=== PATIENT | female | born 1955 | race Caucasian/White ===

== ENCOUNTER 2021-01-09 12:07 | Emergency (ER) | payer MEDICARE, OTHER ==
--- NOTE | 2021-01-09 13:24 | CR ---
Right knee: AP, lateral and sunrise patellar views were obtained of the right knee. Comparison: No previous study. Moderate narrowing is seen of the medial and lateral joint compartments. Osteophytes are seen most prominent laterally. Moderate narrowing is also noted within the patellofemoral joint with osteophytes. Osteopenia appears to be present. Nothing acute is seen. No joint effusion is seen. Impression: 1. Diffuse degenerative change as described above. Diagnostic code #3
--- NOTE | 2021-01-09 13:49 | EDM.PDOC ---
ED HPI GENERAL MEDICAL PROBLEM - General Chief Complaint: Lower Extremity Injury/Pain Stated Complaint: RIGHT KNEE PAIN Time Seen by Provider: 01/09/21 12:09 Source of Information: Reports: Patient, RN Notes Reviewed History Limitations: Reports: No Limitations - History of Present Illness INITIAL COMMENTS - FREE TEXT/NARRATIVE: Patient is a 65-year-old female presenting to the emergency department with complaints of right knee pain. Reports that about 1 week ago, she fell and landed on her extended leg. Since that time she is been having pain to her right knee. She reports a history of bilateral knee arthritis and states that she has been told that she needs bilateral knee replacements. She is new to the area but is in the process of establishing with orthopedist, Dr. Aviles. She has been able to walk on the extremity, however it is uncomfortable. right knee Pain Score (Numeric/FACES): 6 - Related Data Allergies Allergy/AdvReac Type Severity Reaction Status Date / Time NSAIDS (Non-Steroidal Allergy Other Verified 01/09/21 12:20 Anti-Inflamma phenytoin [From Dilantin] Allergy Cannot Verified 01/09/21 12:20 Remember Sulfa (Sulfonamide Allergy Anaphylactic Verified 01/09/21 12:20 Antibiotics) Shock Past Medical History Musculoskeletal History: Reports: Arthritis - Past Surgical History Musculoskeletal Surgical History: Reports: Shoulder Replacement Social & Family History - Tobacco Use Tobacco Use Status *Q: Never Tobacco User - Recreational Drug Use Recreational Drug Use: No Review of Systems - Review of Systems Review Of Systems: Comprehensive ROS is negative, except as noted in HPI. ED EXAM, GENERAL - Physical Exam Exam: See Below Exam Limited By: No Limitations General Appearance: Alert, WD/WN, No Apparent Distress Respiratory/Chest: No Respiratory Distress, Lungs Clear, Normal Breath Sounds, No Accessory Muscle Use, Chest Non-Tender Cardiovascular: Normal Peripheral Pulses, Regular Rate, Rhythm, No Edema, No Gallop, No JVD, No Murmur, No Rub Extremities: Other (Faint ecchymosis to the anterior aspect of the right knee. No obvious deformity. Area is tender to palpation.) Neurological: Alert, Oriented, CN II-XII Intact, Normal Cognition, Normal Reflexes, No Motor/Sensory Deficits Psychiatric: Normal Affect, Normal Mood Skin Exam: Warm, Dry, Intact, Normal Color, No Rash Course - Vital Signs Last Recorded V/S: Last Vital Signs Temp 98.1 F 01/09/21 12:16 Pulse 88 01/09/21 12:16 Resp 18 01/09/21 12:16 BP 169/83 H 01/09/21 12:16 Pulse Ox 95 01/09/21 12:16 - Re-Assessments/Exams Free Text/Narrative Re-Assessment/Exam: Patient is a 65-year-old female presenting to the emergency department with complaints of right knee pain after fall 1 week ago. Reports a history of degenerative joints in her bilateral knees. States she has been told she needs bilateral knee replacement. She is new to the area so she has not seen orthopedics in the area, she is in the process of establishing with Dr. Aviles. She has been able to walk on the extremity, however it is uncomfortable. I ordered x-rays of the right knee. 01/09/21 13:47 X-ray of the right knee show degenerative changes but no acute abnormalities. Results discussed with patient. She will be provided a knee immobilizer to stabilize the joint. I will write for Tylenol with codeine for pain. Recommend follow-up with orthopedics as soon as possible. Discharge instructions as documented. Departure - Departure Time of Disposition: 13:49 Disposition: Home, Self-Care 01 Condition: Good Clinical Impression: Knee pain, right Qualifiers: Chronicity: acute Qualified Code(s): M25.561 - Pain in right knee - Discharge Information *PRESCRIPTION DRUG MONITORING PROGRAM REVIEWED*: No *COPY OF PRESCRIPTION DRUG MONITORING REPORT IN PATIENT DIONICIO: No Instructions: Acute Knee Pain, Adult Referrals: PCP,None [Primary Care Provider] - Additional Instructions: You were seen in the emergency department today for right-sided knee pain after falling 1 week ago. X-rays were completed and show no evidence of fracture. You likely have increased inflammation in addition to your chronic arthritis. You have been provided a knee immobilizer. Wear this as needed to stabilize the joint. Prescription has been provided for Tylenol with codeine. Uses only as prescribed. Do not work or drive for 12 hours after taking them as it can be sedating. Ensure that you are not taking more than 4000 mg of Tylenol from all sources in a 24-hour period. Recommend contacting orthopedics and let them know about your injury. Follow-up with them as soon as possible. Return to ER as needed. Sepsis Event Note (ED) - Evaluation Sepsis Screening Result: No Definite Risk - Focused Exam Vital Signs: Vital Signs Temp Pulse Resp BP Pulse Ox 01/09/21 12:16 98.1 F 88 18 169/83 H 95
== END 2021-01-09 14:15 | disposition home or self-care (01) ==
LOC: JD.ED 12:07
DX: M25.561 Pain in right knee (principal); M19.90 Unspecified osteoarthritis, unspecified site; Z88.6 Allergy status to analgesic agent; Z88.8 Allergy status to other drugs, medicaments and biological substances; Z88.2 Allergy status to sulfonamides
CPT/HCPCS: 73562-26-RT; 73562-RT; 99283; 99283-25

== ENCOUNTER 2021-01-21 10:10 | Inpatient (IN) | payer MEDICARE ==
--- NOTE | 2021-01-21 10:35 | EDM.PDOC ---
ED HPI GENERAL MEDICAL PROBLEM - General Chief Complaint: ENT Problem Stated Complaint: DENTAL PAIN AND TOOK TO MUCH TYLENOL Time Seen by Provider: 01/21/21 10:34 - History of Present Illness INITIAL COMMENTS - FREE TEXT/NARRATIVE: 65-year-old female presents the emergency room with a toothache and complains that she took too much Tylenol. Patient has worsening toothache left upper canine. The patient also complains she has been taking too much Tylenol she gives a history of taking 2 g of Tylenol every 5 hours for the last at least 2 days. The patient has a speech impediment and she says this always happens when her electrolytes are out of order. The speech impediment has been present for at least the last 2 days. She has had several hospitalizations for her electrolytes needing correction including magnesium. She denies fevers or chills she denies any extremity weakness or numbness. Patient denies any intent trying to hurt her self she took her last dose of Tylenol around 1 AM to 2 AM this morning. Right Tooth/Teeth Pain Score (Numeric/FACES): 9 - Related Data Allergies Allergy/AdvReac Type Severity Reaction Status Date / Time NSAIDS (Non-Steroidal Allergy Other Verified 01/21/21 10:41 Anti-Inflamma phenytoin [From Dilantin] Allergy Cannot Verified 01/21/21 10:41 Remember Sulfa (Sulfonamide Allergy Anaphylactic Verified 01/21/21 10:41 Antibiotics) Shock Past Medical History Musculoskeletal History: Reports: Arthritis - Past Surgical History Musculoskeletal Surgical History: Reports: Shoulder Replacement ED ROS GENERAL - Review of Systems Review Of Systems: See Below Constitutional: Reports: No Symptoms, Fever. Denies: Chills HEENT: Reports: Dental Pain Respiratory: Reports: No Symptoms Cardiovascular: Reports: No Symptoms Endocrine: Reports: No Symptoms GI/Abdominal: Reports: No Symptoms : Reports: No Symptoms Musculoskeletal: Reports: No Symptoms Skin: Reports: No Symptoms Neurological: Reports: Trouble Speaking, Change in Speech. Denies: Dizziness, Headache, Difficulty Walking, Gait Disturbance ED EXAM, GENERAL - Physical Exam Exam: See Below Exam Limited By: No Limitations General Appearance: Alert, No Apparent Distress, Obese Ears: Normal External Exam, Normal Canal, Hearing Grossly Normal, Normal TMs Nose: Normal Inspection, Normal Mucosa, No Blood Throat/Mouth: Normal Inspection, Normal Lips, Normal Gums, Normal Oropharynx, Normal Voice, No Airway Compromise, Other (She has a left upper canine that is eroded to the gumline she has swelling of the gum.). No: Normal Teeth Head: Atraumatic, Normocephalic Neck: Normal Inspection, Supple, Non-Tender. No: Lymphadenopathy (L), Lymphadenopathy (R) Respiratory/Chest: No Respiratory Distress, Lungs Clear, Normal Breath Sounds Cardiovascular: Regular Rate, Rhythm, No Edema, No Murmur GI/Abdominal: Normal Bowel Sounds, Soft, Non-Tender, Other (Morbid obesity) Back Exam: Normal Inspection. No: CVA Tenderness (L), CVA Tenderness (R) #1 Interpretation EKG Date: 01/21/21 Rhythm: NSR [place]: Normal P-Wave: Present QRS: Normal ST-T: Normal QT: Normal Comparison: NA - No Prior EKG EKG Interpretation Comments: Normal EKG Course - Vital Signs Last Recorded V/S: Last Vital Signs Temp 36.1 C 01/21/21 10:38 Pulse 90 01/21/21 13:42 Resp 16 01/21/21 13:42 BP 172/75 H 01/21/21 13:42 Pulse Ox 98 01/21/21 13:42 - Orders/Labs/Meds Orders: Active Orders 24 hr Category Date Time Status Admission Status [Patient Status] [ADT] Routine ADT 01/21/21 14:43 Active Cardiac Monitoring [RC] CONTINUOUS Care 01/21/21 14:45 Active EKG Documentation Completion [RC] STAT Care 01/21/21 10:45 Active Height and Weight [RC] DAILY Care 01/21/21 14:43 Active Intake and Output [RC] QSHIFT Care 01/21/21 14:44 Active Oxygen Therapy [RC] PRN Care 01/21/21 14:44 Active Up With Assistance [RC] ASDIRECTED Care 01/21/21 14:43 Active VTE/DVT Education [RC] PER UNIT ROUTINE Care 01/21/21 14:44 Active Vital Signs [RC] Q4H Care 01/21/21 14:44 Active Consult to Case Management/Trailer [employer] [CONS] Cons 01/21/21 14:43 Active Routine Regular Diet [DIET] Diet 01/21/21 Dinner Active Abdomen Comp [US] Routine Exams 01/21/21 15:01 Ordered ACETAMINOPHEN [CHEM] Routine Lab 01/21/21 16:00 Ordered ACETAMINOPHEN [CHEM] Routine Lab 01/21/21 21:00 Ordered ACETAMINOPHEN [CHEM] Routine Lab 01/22/21 06:00 Ordered BASIC METABOLIC PANEL,BMP [CHEM] DAILY Lab 01/22/21 06:00 Ordered BASIC METABOLIC PANEL,BMP [CHEM] DAILY Lab 01/23/21 06:00 Ordered BASIC METABOLIC PANEL,BMP [CHEM] DAILY Lab 01/24/21 06:00 Ordered BASIC METABOLIC PANEL,BMP [CHEM] DAILY Lab 01/25/21 06:00 Ordered BASIC METABOLIC PANEL,BMP [CHEM] DAILY Lab 01/26/21 06:00 Ordered CBC WITH AUTO DIFF [HEME] DAILY Lab 01/22/21 06:00 Ordered CBC WITH AUTO DIFF [HEME] DAILY Lab 01/23/21 06:00 Ordered CBC WITH AUTO DIFF [HEME] DAILY Lab 01/24/21 06:00 Ordered CBC WITH AUTO DIFF [HEME] DAILY Lab 01/25/21 06:00 Ordered CBC WITH AUTO DIFF [HEME] DAILY Lab 01/26/21 06:00 Ordered HEPATIC FUNCTION PANEL,HFP [CHEM] DAILY Lab 01/22/21 06:00 Ordered HEPATIC FUNCTION PANEL,HFP [CHEM] DAILY Lab 01/23/21 06:00 Ordered HEPATIC FUNCTION PANEL,HFP [CHEM] DAILY Lab 01/24/21 06:00 Ordered HEPATIC FUNCTION PANEL,HFP [CHEM] DAILY Lab 01/25/21 06:00 Ordered HEPATIC FUNCTION PANEL,HFP [CHEM] DAILY Lab 01/26/21 06:00 Ordered HEPATIC FUNCTION PANEL,HFP [CHEM] Routine Lab 01/21/21 16:00 Ordered HEPATIC FUNCTION PANEL,HFP [CHEM] Routine Lab 01/21/21 21:00 Ordered INR,PT,PROTHROMBIN TIME [COAG] DAILY Lab 01/22/21 06:00 Ordered INR,PT,PROTHROMBIN TIME [COAG] DAILY Lab 01/23/21 06:00 Ordered INR,PT,PROTHROMBIN TIME [COAG] DAILY Lab 01/24/21 06:00 Ordered INR,PT,PROTHROMBIN TIME [COAG] DAILY Lab 01/25/21 06:00 Ordered INR,PT,PROTHROMBIN TIME [COAG] DAILY Lab 01/26/21 06:00 Ordered Acetylcysteine [Acetadote 20%] 4,900 mg Med 01/21/21 14:00 Active Dextrose 5% in Water 500 ml IV ONETIME Acetylcysteine [Acetadote 20%] 9,800 mg Med 01/21/21 18:00 Active Dextrose 5% in Water 1,000 ml IV ONETIME Ampicillin/Sulbactam Na [Unasyn] 3 gm Med 01/21/21 15:00 Active Sodium Chloride 0.9% [Normal Saline] 100 ml IV Q6H Heparin Sodium Med 01/21/21 14:45 Active 5,000 units SUBCUT Q8H oxyCODONE Med 01/21/21 14:43 Active 5 mg PO Q4H PRN Medication Orders Heparin Sodium (Porcine) (Heparin Sodium 5,000 Units/Ml Vial) 5,000 units SUBCUT Q8H TATA Last Admin: 01/21/21 15:09 Dose: 5,000 units Documented by: AYDEN Acetylcysteine 4,900 mg/ (Dextrose/Water) 524.5 mls @ 131.125 mls/hr IV ONETIME ONE Stop: 01/21/21 17:59 Last Admin: 01/21/21 14:28 Dose: 131.125 mls/hr Documented by: AYDEN Acetylcysteine 9,800 mg/ (Dextrose/Water) 1,049 mls @ 65.563 mls/hr IV ONETIME ONE Stop: 01/22/21 09:59 Ampicillin Sodium/Sulbactam (Sodium 3 gm/ Sodium Chloride) 100 mls @ 200 mls/hr IV Q6H TATA Oxycodone HCl (Oxycodone 5 Mg Tab) 5 mg PO Q4H PRN PRN Reason: Pain (moderate 4-6) Last Admin: 01/21/21 15:10 Dose: 5 mg Documented by: AYDEN Labs: Laboratory Tests 01/21/21 01/21/21 01/21/21 Range/Units 10:45 10:45 10:55 WBC 4.54 (3.98-10.04) K/mm3 RBC 4.52 (3.98-5.22) M/mm3 Hgb 13.6 (11.2-15.7) gm/dl Hct 43.4 (34.1-44.9) % MCV 96.0 H (79.4-94.8) fl MCH 30.1 (25.6-32.2) pg MCHC 31.3 L (32.2-35.5) g/dl RDW Std Deviation 54.4 H (36.4-46.3) fL Plt Count 154 L (182-369) K/mm3 MPV 9.5 (9.4-12.3) fl Neut % (Auto) 91.5 H (34.0-71.1) % Lymph % (Auto) 5.7 L (19.3-51.7) % [place] % (Auto) 1.3 L (4.7-12.5) % Eos % (Auto) 0.9 (0.7-5.8) Baso % (Auto) 0.4 (0.1-1.2) % Neut # (Auto) 4.15 (1.56-6.13) K/mm3 Lymph # (Auto) 0.26 L (1.18-3.74) K/mm3 [place] # (Auto) 0.06 L (0.24-0.36) K/mm3 Eos # (Auto) 0.04 (0.04-0.36) K/mm3 Baso # (Auto) 0.02 (0.01-0.08) K/mm3 Manual Slide Review Abnormal smear PT (9.7-12.0) SECONDS INR Sodium 136 (136-145) mEq/L Potassium 4.5 (3.5-5.1) mEq/L Chloride 102 (98-107) mEq/L Carbon Dioxide 19 L (21-32) mEq/L Anion Gap 19.5 H (5-15) BUN 18 (7-18) mg/dL Creatinine 0.8 (0.55-1.02) mg/dL Est Cr Clr Drug Dosing 49.01 mL/min Estimated GFR (MDRD) > 60 (>60) mL/min BUN/Creatinine Ratio 22.5 H (14-18) Glucose 131 H (70-99) mg/dL Calcium 8.7 (8.5-10.1) mg/dL Magnesium 1.8 (1.8-2.4) mg/dL Total Bilirubin 0.5 (0.2-1.0) mg/dL AST 714 H (15-37) U/L ALT 312 H (14-59) U/L Alkaline Phosphatase 44 L (46-116) U/L Troponin I < 0.017 (0.00-0.056) ng/mL Total Protein 7.2 (6.4-8.2) g/dl Albumin 3.8 (3.4-5.0) g/dl Globulin 3.4 gm/dL Albumin/Globulin Ratio 1.1 (1-2) Urine Color (Yellow) Urine Appearance (Clear) Urine pH (5.0-8.0) Ur Specific [place] (1.005-1.030) Urine Protein (Negative) Urine Glucose (UA) (Negative) Urine Ketones (Negative) Urine Occult Blood (Negative) Urine Nitrite (Negative) Urine Bilirubin (Negative) Urine Urobilinogen (0.2-1.0) Ur Leukocyte Esterase (Negative) U Hyaline Cast (Auto) (0-5) /lpf Urine RBC (0-5) /hpf Urine WBC (0-5) /hpf Ur Epithelial Cells (0-5) /hpf Urine Bacteria (FEW) /hpf Urine Mucus (FEW) /hpf Salicylates (2.8-20) mg/dL Urine Opiates Screen (ANGBPF=603) Ur Buprenorphine Scrn (CUTOFF=10) Ur Oxycodone Screen (XKU6WU=965) Urine Methadone Screen (OFASYU=296) Ur Propoxyphene Screen (UOHEOJ=262) Acetaminophen 7 L 7 L (10-30) ug/mL Ur Barbiturates Screen (LGKKKI=658) Ur Tricyclics Screen (KJCDIY=206) Ur Phencyclidine Scrn (CUTOFF=25) Ur Amphetamine Screen (ZGFVDT=323) U Methamphetamines Scrn (LWSXOQ=300) U Benzodiazepines Scrn (KOVBIX=304) U Cocaine Metab Screen (UOGNGE=578) U Marijuana (THC) Screen (CUTOFF=50) Ethyl Alcohol 0.00 (0.00) gm% SARS-CoV-2 RNA (LEMUEL) (NEGATIVE) 01/21/21 01/21/21 01/21/21 Range/Units 10:57 11:28 11:29 WBC (3.98-10.04) K/mm3 RBC (3.98-5.22) M/mm3 Hgb (11.2-15.7) gm/dl Hct (34.1-44.9) % MCV (79.4-94.8) fl MCH (25.6-32.2) pg MCHC (32.2-35.5) g/dl RDW Std Deviation (36.4-46.3) fL Plt Count (182-369) K/mm3 MPV (9.4-12.3) fl Neut % (Auto) (34.0-71.1) % Lymph % (Auto) (19.3-51.7) % [place] % (Auto) (4.7-12.5) % Eos % (Auto) (0.7-5.8) Baso % (Auto) (0.1-1.2) % Neut # (Auto) (1.56-6.13) K/mm3 Lymph # (Auto) (1.18-3.74) K/mm3 [place] # (Auto) (0.24-0.36) K/mm3 Eos # (Auto) (0.04-0.36) K/mm3 Baso # (Auto) (0.01-0.08) K/mm3 Manual Slide Review PT 11.9 (9.7-12.0) SECONDS INR 1.11 Sodium (136-145) mEq/L Potassium (3.5-5.1) mEq/L Chloride (98-107) mEq/L Carbon Dioxide (21-32) mEq/L Anion Gap (5-15) BUN (7-18) mg/dL Creatinine (0.55-1.02) mg/dL Est Cr Clr Drug Dosing mL/min Estimated GFR (MDRD) (>60) mL/min BUN/Creatinine Ratio (14-18) Glucose (70-99) mg/dL Calcium (8.5-10.1) mg/dL Magnesium (1.8-2.4) mg/dL Total Bilirubin (0.2-1.0) mg/dL AST (15-37) U/L ALT (14-59) U/L Alkaline Phosphatase (46-116) U/L Troponin I (0.00-0.056) ng/mL Total Protein (6.4-8.2) g/dl Albumin (3.4-5.0) g/dl Globulin gm/dL Albumin/Globulin Ratio (1-2) Urine Color (Yellow) Urine Appearance (Clear) Urine pH (5.0-8.0) Ur Specific [place] (1.005-1.030) Urine Protein (Negative) Urine Glucose (UA) (Negative) Urine Ketones (Negative) Urine Occult Blood (Negative) Urine Nitrite (Negative) Urine Bilirubin (Negative) Urine Urobilinogen (0.2-1.0) Ur Leukocyte Esterase (Negative) U Hyaline Cast (Auto) (0-5) /lpf Urine RBC (0-5) /hpf Urine WBC (0-5) /hpf Ur Epithelial Cells (0-5) /hpf Urine Bacteria (FEW) /hpf Urine Mucus (FEW) /hpf Salicylates 0.9 L (2.8-20) mg/dL Urine Opiates Screen (FFOLKY=883) Ur Buprenorphine Scrn (CUTOFF=10) Ur Oxycodone Screen (LUR4CN=824) Urine Methadone Screen (ORCZXX=452) Ur Propoxyphene Screen (VYXTWC=418) Acetaminophen (10-30) ug/mL Ur Barbiturates Screen (OTRZRQ=754) Ur Tricyclics Screen (NZGPZO=931) Ur Phencyclidine Scrn (CUTOFF=25) Ur Amphetamine Screen (FLQXBH=311) U Methamphetamines Scrn (CNSABM=175) U Benzodiazepines Scrn (HTUXMG=468) U Cocaine Metab Screen (JUFPKN=624) U Marijuana (THC) Screen (CUTOFF=50) Ethyl Alcohol (0.00) gm% SARS-CoV-2 RNA (LEMUEL) Negative (NEGATIVE) 01/21/21 01/21/21 Range/Units 13:00 13:00 WBC (3.98-10.04) K/mm3 RBC (3.98-5.22) M/mm3 Hgb (11.2-15.7) gm/dl Hct (34.1-44.9) % MCV (79.4-94.8) fl MCH (25.6-32.2) pg MCHC (32.2-35.5) g/dl RDW Std Deviation (36.4-46.3) fL Plt Count (182-369) K/mm3 MPV (9.4-12.3) fl Neut % (Auto) (34.0-71.1) % Lymph % (Auto) (19.3-51.7) % [place] % (Auto) (4.7-12.5) % Eos % (Auto) (0.7-5.8) Baso % (Auto) (0.1-1.2) % Neut # (Auto) (1.56-6.13) K/mm3 Lymph # (Auto) (1.18-3.74) K/mm3 [place] # (Auto) (0.24-0.36) K/mm3 Eos # (Auto) (0.04-0.36) K/mm3 Baso # (Auto) (0.01-0.08) K/mm3 Manual Slide Review PT (9.7-12.0) SECONDS INR Sodium (136-145) mEq/L Potassium (3.5-5.1) mEq/L Chloride (98-107) mEq/L Carbon Dioxide (21-32) mEq/L Anion Gap (5-15) BUN (7-18) mg/dL Creatinine (0.55-1.02) mg/dL Est Cr Clr Drug Dosing mL/min Estimated GFR (MDRD) (>60) mL/min BUN/Creatinine Ratio (14-18) Glucose (70-99) mg/dL Calcium (8.5-10.1) mg/dL Magnesium (1.8-2.4) mg/dL Total Bilirubin (0.2-1.0) mg/dL AST (15-37) U/L ALT (14-59) U/L Alkaline Phosphatase (46-116) U/L Troponin I (0.00-0.056) ng/mL Total Protein (6.4-8.2) g/dl Albumin (3.4-5.0) g/dl Globulin gm/dL Albumin/Globulin Ratio (1-2) Urine Color Yellow (Yellow) Urine Appearance Clear (Clear) Urine pH 5.5 (5.0-8.0) Ur Specific [place] > or = 1.030 (1.005-1.030) Urine Protein 1+ H (Negative) Urine Glucose (UA) Negative (Negative) Urine Ketones 2+ H (Negative) Urine Occult Blood Negative (Negative) Urine Nitrite Negative (Negative) Urine Bilirubin 1+ H (Negative) Urine Urobilinogen 0.2 (0.2-1.0) Ur Leukocyte Esterase Negative (Negative) U Hyaline Cast (Auto) 0-5 (0-5) /lpf Urine RBC Not seen (0-5) /hpf Urine WBC 0-5 (0-5) /hpf Ur Epithelial Cells 0-5 (0-5) /hpf Urine Bacteria Moderate H (FEW) /hpf Urine Mucus Few (FEW) /hpf Salicylates (2.8-20) mg/dL Urine Opiates Screen Negative (QCSSHB=266) Ur Buprenorphine Scrn Negative (CUTOFF=10) Ur Oxycodone Screen Negative (XXN6AH=807) Urine Methadone Screen Negative (MNESWC=572) Ur Propoxyphene Screen Negative (LEJACN=006) Acetaminophen (10-30) ug/mL Ur Barbiturates Screen Negative (HQGPCI=865) Ur Tricyclics Screen Negative (XHLILR=552) Ur Phencyclidine Scrn Negative (CUTOFF=25) Ur Amphetamine Screen Negative (MXWFNH=671) U Methamphetamines Scrn Negative (YZHJMJ=125) U Benzodiazepines Scrn Negative (ONTNXF=682) U Cocaine Metab Screen Negative (TBHWFX=353) U Marijuana (THC) Screen Negative (CUTOFF=50) Ethyl Alcohol (0.00) gm% SARS-CoV-2 RNA (LEMUEL) (NEGATIVE) Meds: Medications Generic Name Dose Route Start Last Admin Trade Name Freq PRN Reason Stop Dose Admin Heparin Sodium (Porcine) 5,000 units 01/21/21 14:45 01/21/21 15:09 Heparin Sodium 5,000 Units/Ml Vial SUBCUT 5,000 units Q8H TATA Administration Acetylcysteine 4,900 mg/ 524.5 mls @ 131.125 mls/hr 01/21/21 14:00 01/21/21 14:28 Dextrose/Water IV 01/21/21 17:59 131.125 mls/hr ONETIME ONE Administration Acetylcysteine 9,800 mg/ 1,049 mls @ 65.563 mls/hr 01/21/21 18:00 Dextrose/Water IV 01/22/21 09:59 ONETIME ONE Ampicillin Sodium/Sulbactam 100 mls @ 200 mls/hr 01/21/21 15:00 Sodium 3 gm/ Sodium Chloride IV Q6H TATA Oxycodone HCl 5 mg 01/21/21 14:43 01/21/21 15:10 Oxycodone 5 Mg Tab PO 5 mg Q4H PRN Administration Pain (moderate 4-6) Discontinued Medications Generic Name Dose Route Start Last Admin Trade Name Freq PRN Reason Stop Dose Admin Fentanyl 50 mcg 01/21/21 13:14 01/21/21 13:25 Fentanyl 100 Mcg/2 Ml Sdv IVPUSH 01/21/21 13:15 50 mcg ONETIME ONE Administration Hydromorphone HCl 0.5 mg 01/21/21 14:24 01/21/21 14:28 Hydromorphone 0.5 Mg/0.5 Ml Syringe IVPUSH 01/21/21 14:25 0.5 mg ONETIME ONE Administration Acetylcysteine 14,600 mg/ 273 mls @ 273 mls/hr 01/21/21 13:00 01/21/21 13:25 Dextrose/Water IV 01/21/21 13:59 273 mls/hr ONETIME ONE Administration Ondansetron HCl 4 mg 01/21/21 13:21 01/21/21 13:24 Ondansetron 4 Mg/2 Ml Sdv IVPUSH 01/21/21 13:22 4 mg ONETIME ONE Administration - Re-Assessments/Exams Free Text/Narrative Re-Assessment/Exam: 01/21/21 12:56 Reviewed with poison control and has a suspected we will treat for Tylenol toxicity with her body habitus and when I have pharmacy calculate the dose. 01/21/21 13:[address] Badillo who will assume care. Departure - Departure Time of Disposition: 13:37 Disposition: Refer to Observation Clinical Impression: Tylenol toxicity - Discharge Information Referrals: PCP,None [Primary Care Provider] - Forms: ED Department Discharge Sepsis Event Note (ED) - Focused Exam Vital Signs: Vital Signs Temp Pulse Resp BP Pulse Ox 01/21/21 13:42 90 16 172/75 H 98 01/21/21 10:38 36.1 C 90 16 156/123 H 96 - My Orders Last 24 Hours: My Active Orders 01/21/21 10:45 EKG Documentation Completion [RC] STAT 01/21/21 14:00 Acetylcysteine [Acetadote 20%] 4,900 mg Dextrose 5% in Water 500 ml IV ONETIME 01/21/21 14:43 Admission Status [Patient Status] [ADT] Routine 01/21/21 18:00 Acetylcysteine [Acetadote 20%] 9,800 mg Dextrose 5% in Water 1,000 ml IV ONETIME - Assessment/Plan Last 24 Hours: My Active Orders 01/21/21 10:45 EKG Documentation Completion [RC] STAT 01/21/21 14:00 Acetylcysteine [Acetadote 20%] 4,900 mg Dextrose 5% in Water 500 ml IV ONETIME 01/21/21 14:43 Admission Status [Patient Status] [ADT] Routine 01/21/21 18:00 Acetylcysteine [Acetadote 20%] 9,800 mg Dextrose 5% in Water 1,000 ml IV ONETIME
[2021-01-21 11:32] LABS: ACETAMINOPHEN 7 ug/mL (10-30)
[2021-01-21] MEDS ORDERED: ACETYLCYSTEINE IV ONE ×6 (13:00→18:00)
[2021-01-21] MEDS ORDERED: DEXTROSE 5% IV ONE ×6 (13:00→18:00)
[2021-01-21] MEDS ORDERED: WATER IV ONE ×6 (13:00→18:00)
[2021-01-21] MEDS ORDERED: fentaNYL 100 MCG/2 ML SDV IVPUSH ONE (13:14)
[2021-01-21] MEDS ORDERED: Ondansetron 4 MG/2 ML SDV IVPUSH ONE (13:21)
--- NOTE | 2021-01-21 13:57 | CT ---
Head CT Technique: Multiple axial sections through the brain were obtained. Intravenous contrast was not utilized. Reconstructed coronal and sagittal images were obtained. Comparison: No previous intracranial imaging is available. Findings: Ventricles along with basal cisterns and sulci over the convexities are within normal limits for the patient's age. Minimal low density finding is seen within both posterior basal ganglia most likely representing prominent perivascular spaces. No abnormal parenchymal densities are seen. No evidence of intracranial hemorrhage is seen. No midline shift or mass-effect is seen. Bone window settings were reviewed. Mild hyperostosis frontalis is noted which is a normal variant. Moderate mucosal thickening is seen within the right side of the sphenoid sinus. Other visualized paranasal sinuses are clear. Visualized mastoid sinuses show nothing acute. No acute calvarial abnormality is appreciated. Impression: 1. Moderate mucosal thickening within the right side of the sphenoid sinus. No air-fluid levels are seen. 2. Nothing acute is otherwise seen on noncontrast head CT study. Diagnostic code #2 I agree with preliminary report from [facility], finalized on 01/21/21, 1:08 PM CDT, code 1
[2021-01-21] MEDS ORDERED: HYDROmorphone 0.5 MG/0.5 ML Syringe IVPUSH ONE (14:24)
[2021-01-21] MEDS ORDERED: Ampicillin/Sulbactam Na 3 GM in Sodium Chloride 0.9% 100 ML IV SCH (15:00)
[2021-01-21] MEDS: Heparin Sodium 5,000 Units/ML Vial SUBCUT SCH ×2 (15:09→23:14)
[2021-01-21] MEDS: oxyCODONE 5 MG Tab PO PRN ×3 (15:10→23:20)
--- NOTE | 2021-01-21 16:14 | US ---
Abdominal ultrasound: Multiple real-time images of the abdomen were obtained. Comparison: No prior abdominal imaging is available. Liver is echogenic as compared to the kidney which is most likely due to fatty infiltration. Liver is also somewhat enlarged. Abdominal aorta shows no aneurysm. Gallbladder contains no shadowing gallstones. No gallbladder wall thickening is seen. Small area of focal fatty sparing is seen next to the gallbladder. Common bile duct is not visualized but common hepatic duct is normal in size. Kidneys show no hydronephrosis or mass. Right kidney measures 11.2 cm in length and left kidney measures 10.9 cm in length. Spleen size is normal. Pancreas is not completely seen. Visualized portions of the pancreas are within normal limits. Inferior vena cava is patent. Main portal vein shows normal hepatopedal flow. Impression: 1. Fatty infiltration within the liver. Small amount of focal fatty sparing next to the gallbladder. 2. Nothing acute is otherwise seen on abdominal ultrasound exam. Diagnostic code #2
--- NOTE | 2021-01-21 16:22 | PCM.HP.2 ---
H&P History of Present Illness - General Date of Service: 01/21/21 Admit Problem/Dx: Admission Diagnosis/Problem Admission Diagnosis/Problem Acetaminophen overdose Source of Information: Patient - History of Present Illness Initial Comments - Free Text/Narative: This is a 65F with PMHx noted below including hx of arthritis presenting for evaluation of tooth pain. The patient is a poor historian. Hx limited by encephalopathy. The patient states she recently moved from [facility]. She has been having worsening tooth pain upper left molars. She has not been evaluated by dentist. For pain control she has been taking large doses of tylenol every few hours. She presented to ED where her tylenol levels where checked and noted to be 7. Given concern for acetaminophen toxicity she was started on mucomyst. Her AST and ALT 714, 314. INR WNL. she was started on unasyn and admitted for further evaluation. Right Tooth/Teeth Pain Score (Numeric/FACES): 9 - Related Data Allergies/Adverse Reactions: Allergies Allergy/AdvReac Type Severity Reaction Status Date / Time NSAIDS (Non-Steroidal Allergy Other Verified 01/21/21 10:41 Anti-Inflamma phenytoin [From Dilantin] Allergy Cannot Verified 01/21/21 10:41 Remember Sulfa (Sulfonamide Allergy Anaphylactic Verified 01/21/21 10:41 Antibiotics) Shock Home Medications: Home Meds Anastrozole [Arimidex] 1 mg PO DAILY 01/21/21 [History] Omeprazole 20 mg PO DAILY 01/21/21 [History] Rizatriptan Benzoate [Rizatriptan] 10 mg PO ASDIRECTED PRN 01/21/21 [History] Venlafaxine HCl [Venlafaxine ER] 220 mg PO DAILY 01/21/21 [History] carvediloL [Carvedilol] 25 mg PO BID 01/21/21 [History] Past Medical History Musculoskeletal History: Reports: Arthritis - Past Surgical History Musculoskeletal Surgical History: Reports: Shoulder Replacement Social & Family History - Tobacco Use Tobacco Use Status *Q: Never Tobacco User - Recreational Drug Use Recreational Drug Use: No H&P Review of Systems - Review of Systems: Review Of Systems: Unable To Obtain (due to encephalopathy) Reason Not Obtained: encephalopathy Exam - Exam Exam: See Below (s) - Vital Signs Vital Signs: Last Vital Signs Temp 97.0 F 01/21/21 10:38 Pulse 103 H 01/21/21 16:15 Resp 16 01/21/21 16:15 BP 153/74 H 01/21/21 16:15 Pulse Ox 95 01/21/21 16:15 Weight: 215 lb - Exam General: Alert, Cooperative, Other (disoriented ) HEENT: EOMI, Hearing Intact, Nares Patent Neck: Supple Lungs: Clear to Auscultation, Normal Respiratory Effort Cardiovascular: Regular Rate, Regular Rhythm GI/Abdominal Exam: Soft, Non-Tender, No Distention Extremities: Normal Inspection Neurological: Normal Speech Neuro Extensive - Mental Status: Other (Alert to place but not time) - Patient Data Lab Results Last 24 hrs: Laboratory Results - last 24 hr 01/21/21 01/21/21 01/21/21 Range/Units 10:45 10:45 10:55 WBC 4.54 (3.98-10.04) K/mm3 RBC 4.52 (3.98-5.22) M/mm3 Hgb 13.6 (11.2-15.7) gm/dl Hct 43.4 (34.1-44.9) % MCV 96.0 H (79.4-94.8) fl MCH 30.1 (25.6-32.2) pg MCHC 31.3 L (32.2-35.5) g/dl RDW Std Deviation 54.4 H (36.4-46.3) fL Plt Count 154 L (182-369) K/mm3 MPV 9.5 (9.4-12.3) fl Neut % (Auto) 91.5 H (34.0-71.1) % Lymph % (Auto) 5.7 L (19.3-51.7) % Weld % (Auto) 1.3 L (4.7-12.5) % Eos % (Auto) 0.9 (0.7-5.8) Baso % (Auto) 0.4 (0.1-1.2) % Neut # (Auto) 4.15 (1.56-6.13) K/mm3 Lymph # (Auto) 0.26 L (1.18-3.74) K/mm3 Weld # (Auto) 0.06 L (0.24-0.36) K/mm3 Eos # (Auto) 0.04 (0.04-0.36) K/mm3 Baso # (Auto) 0.02 (0.01-0.08) K/mm3 Manual Slide Review Abnormal smear PT (9.7-12.0) SECONDS INR Sodium 136 (136-145) mEq/L Potassium 4.5 (3.5-5.1) mEq/L Chloride 102 (98-107) mEq/L Carbon Dioxide 19 L (21-32) mEq/L Anion Gap 19.5 H (5-15) BUN 18 (7-18) mg/dL Creatinine 0.8 (0.55-1.02) mg/dL Est Cr Clr Drug Dosing 49.01 mL/min Estimated GFR (MDRD) > 60 (>60) mL/min BUN/Creatinine Ratio 22.5 H (14-18) Glucose 131 H (70-99) mg/dL Calcium 8.7 (8.5-10.1) mg/dL Magnesium 1.8 (1.8-2.4) mg/dL Total Bilirubin 0.5 (0.2-1.0) mg/dL AST 714 H (15-37) U/L ALT 312 H (14-59) U/L Alkaline Phosphatase 44 L (46-116) U/L Troponin I < 0.017 (0.00-0.056) ng/mL Total Protein 7.2 (6.4-8.2) g/dl Albumin 3.8 (3.4-5.0) g/dl Globulin 3.4 gm/dL Albumin/Globulin Ratio 1.1 (1-2) Urine Color (Yellow) Urine Appearance (Clear) Urine pH (5.0-8.0) Ur Specific [place] (1.005-1.030) Urine Protein (Negative) Urine Glucose (UA) (Negative) Urine Ketones (Negative) Urine Occult Blood (Negative) Urine Nitrite (Negative) Urine Bilirubin (Negative) Urine Urobilinogen (0.2-1.0) Ur Leukocyte Esterase (Negative) U Hyaline Cast (Auto) (0-5) /lpf Urine RBC (0-5) /hpf Urine WBC (0-5) /hpf Ur Epithelial Cells (0-5) /hpf Urine Bacteria (FEW) /hpf Urine Mucus (FEW) /hpf Salicylates (2.8-20) mg/dL Urine Opiates Screen (EGBFKR=732) Ur Buprenorphine Scrn (CUTOFF=10) Ur Oxycodone Screen (UNX5UZ=836) Urine Methadone Screen (NUQIKP=787) Ur Propoxyphene Screen (PMKJDC=855) Acetaminophen 7 L 7 L (10-30) ug/mL Ur Barbiturates Screen (KNJXQZ=876) Ur Tricyclics Screen (MSOCPU=758) Ur Phencyclidine Scrn (CUTOFF=25) Ur Amphetamine Screen (PDDMJI=136) U Methamphetamines Scrn (HQJHWE=804) U Benzodiazepines Scrn (KVDEDF=663) U Cocaine Metab Screen (ISKJQT=985) U Marijuana (THC) Screen (CUTOFF=50) Ethyl Alcohol 0.00 (0.00) gm% SARS-CoV-2 RNA (LEMUEL) (NEGATIVE) 01/21/21 01/21/21 01/21/21 Range/Units 10:57 11:28 11:29 WBC (3.98-10.04) K/mm3 RBC (3.98-5.22) M/mm3 Hgb (11.2-15.7) gm/dl Hct (34.1-44.9) % MCV (79.4-94.8) fl MCH (25.6-32.2) pg MCHC (32.2-35.5) g/dl RDW Std Deviation (36.4-46.3) fL Plt Count (182-369) K/mm3 MPV (9.4-12.3) fl Neut % (Auto) (34.0-71.1) % Lymph % (Auto) (19.3-51.7) % Weld % (Auto) (4.7-12.5) % Eos % (Auto) (0.7-5.8) Baso % (Auto) (0.1-1.2) % Neut # (Auto) (1.56-6.13) K/mm3 Lymph # (Auto) (1.18-3.74) K/mm3 Weld # (Auto) (0.24-0.36) K/mm3 Eos # (Auto) (0.04-0.36) K/mm3 Baso # (Auto) (0.01-0.08) K/mm3 Manual Slide Review PT 11.9 (9.7-12.0) SECONDS INR 1.11 Sodium (136-145) mEq/L Potassium (3.5-5.1) mEq/L Chloride (98-107) mEq/L Carbon Dioxide (21-32) mEq/L Anion Gap (5-15) BUN (7-18) mg/dL Creatinine (0.55-1.02) mg/dL Est Cr Clr Drug Dosing mL/min Estimated GFR (MDRD) (>60) mL/min BUN/Creatinine Ratio (14-18) Glucose (70-99) mg/dL Calcium (8.5-10.1) mg/dL Magnesium (1.8-2.4) mg/dL Total Bilirubin (0.2-1.0) mg/dL AST (15-37) U/L ALT (14-59) U/L Alkaline Phosphatase (46-116) U/L Troponin I (0.00-0.056) ng/mL Total Protein (6.4-8.2) g/dl Albumin (3.4-5.0) g/dl Globulin gm/dL Albumin/Globulin Ratio (1-2) Urine Color (Yellow) Urine Appearance (Clear) Urine pH (5.0-8.0) Ur Specific [place] (1.005-1.030) Urine Protein (Negative) Urine Glucose (UA) (Negative) Urine Ketones (Negative) Urine Occult Blood (Negative) Urine Nitrite (Negative) Urine Bilirubin (Negative) Urine Urobilinogen (0.2-1.0) Ur Leukocyte Esterase (Negative) U Hyaline Cast (Auto) (0-5) /lpf Urine RBC (0-5) /hpf Urine WBC (0-5) /hpf Ur Epithelial Cells (0-5) /hpf Urine Bacteria (FEW) /hpf Urine Mucus (FEW) /hpf Salicylates 0.9 L (2.8-20) mg/dL Urine Opiates Screen (IFREYE=753) Ur Buprenorphine Scrn (CUTOFF=10) Ur Oxycodone Screen (SJM3GG=790) Urine Methadone Screen (JCFCRR=929) Ur Propoxyphene Screen (TBJONQ=212) Acetaminophen (10-30) ug/mL Ur Barbiturates Screen (BDWLIU=505) Ur Tricyclics Screen (TYJWYK=355) Ur Phencyclidine Scrn (CUTOFF=25) Ur Amphetamine Screen (OJKFMW=409) U Methamphetamines Scrn (ZOFOPI=677) U Benzodiazepines Scrn (BAEKGB=373) U Cocaine Metab Screen (QVHHWF=885) U Marijuana (THC) Screen (CUTOFF=50) Ethyl Alcohol (0.00) gm% SARS-CoV-2 RNA (LEMUEL) Negative (NEGATIVE) 01/21/21 01/21/21 Range/Units 13:00 13:00 WBC (3.98-10.04) K/mm3 RBC (3.98-5.22) M/mm3 Hgb (11.2-15.7) gm/dl Hct (34.1-44.9) % MCV (79.4-94.8) fl MCH (25.6-32.2) pg MCHC (32.2-35.5) g/dl RDW Std Deviation (36.4-46.3) fL Plt Count (182-369) K/mm3 MPV (9.4-12.3) fl Neut % (Auto) (34.0-71.1) % Lymph % (Auto) (19.3-51.7) % Weld % (Auto) (4.7-12.5) % Eos % (Auto) (0.7-5.8) Baso % (Auto) (0.1-1.2) % Neut # (Auto) (1.56-6.13) K/mm3 Lymph # (Auto) (1.18-3.74) K/mm3 Weld # (Auto) (0.24-0.36) K/mm3 Eos # (Auto) (0.04-0.36) K/mm3 Baso # (Auto) (0.01-0.08) K/mm3 Manual Slide Review PT (9.7-12.0) SECONDS INR Sodium (136-145) mEq/L Potassium (3.5-5.1) mEq/L Chloride (98-107) mEq/L Carbon Dioxide (21-32) mEq/L Anion Gap (5-15) BUN (7-18) mg/dL Creatinine (0.55-1.02) mg/dL Est Cr Clr Drug Dosing mL/min Estimated GFR (MDRD) (>60) mL/min BUN/Creatinine Ratio (14-18) Glucose (70-99) mg/dL Calcium (8.5-10.1) mg/dL Magnesium (1.8-2.4) mg/dL Total Bilirubin (0.2-1.0) mg/dL AST (15-37) U/L ALT (14-59) U/L Alkaline Phosphatase (46-116) U/L Troponin I (0.00-0.056) ng/mL Total Protein (6.4-8.2) g/dl Albumin (3.4-5.0) g/dl Globulin gm/dL Albumin/Globulin Ratio (1-2) Urine Color Yellow (Yellow) Urine Appearance Clear (Clear) Urine pH 5.5 (5.0-8.0) Ur Specific [place] > or = 1.030 (1.005-1.030) Urine Protein 1+ H (Negative) Urine Glucose (UA) Negative (Negative) Urine Ketones 2+ H (Negative) Urine Occult Blood Negative (Negative) Urine Nitrite Negative (Negative) Urine Bilirubin 1+ H (Negative) Urine Urobilinogen 0.2 (0.2-1.0) Ur Leukocyte Esterase Negative (Negative) U Hyaline Cast (Auto) 0-5 (0-5) /lpf Urine RBC Not seen (0-5) /hpf Urine WBC 0-5 (0-5) /hpf Ur Epithelial Cells 0-5 (0-5) /hpf Urine Bacteria Moderate H (FEW) /hpf Urine Mucus Few (FEW) /hpf Salicylates (2.8-20) mg/dL Urine Opiates Screen Negative (CQKWCD=999) Ur Buprenorphine Scrn Negative (CUTOFF=10) Ur Oxycodone Screen Negative (PJK0EQ=527) Urine Methadone Screen Negative (EXARRU=266) Ur Propoxyphene Screen Negative (SBNJAF=745) Acetaminophen (10-30) ug/mL Ur Barbiturates Screen Negative (WOOLJO=181) Ur Tricyclics Screen Negative (NUCLUC=121) Ur Phencyclidine Scrn Negative (CUTOFF=25) Ur Amphetamine Screen Negative (BNLEGK=736) U Methamphetamines Scrn Negative (RKRDBK=446) U Benzodiazepines Scrn Negative (RHJCRW=883) U Cocaine Metab Screen Negative (LTBNYC=067) U Marijuana (THC) Screen Negative (CUTOFF=50) Ethyl Alcohol (0.00) gm% SARS-CoV-2 RNA (LEMUEL) (NEGATIVE) Result Diagrams: 01/21/21 10:45 01/21/21 10:45 Sepsis Event Note - Evaluation Sepsis Screening Result: No Definite Risk - Focused Exam Vital Signs: Vital Signs Temp Pulse Resp BP Pulse Ox 01/21/21 16:15 103 H 16 153/74 H 95 01/21/21 13:42 90 16 172/75 H 98 01/21/21 10:38 97.0 F 90 16 156/123 H 96 Problem List Initiated/Reviewed/Updated: Yes Orders Last 24hrs: Active Orders 24 hr Category Date Time Status Admission Status [Patient Status] [ADT] Routine ADT 01/21/21 14:43 Active Cardiac Monitoring [RC] CONTINUOUS Care 01/21/21 14:45 Active EKG Documentation Completion [RC] STAT Care 01/21/21 10:45 Active Height and Weight [RC] DAILY Care 01/21/21 14:43 Active Intake and Output [RC] QSHIFT Care 01/21/21 14:44 Active Oxygen Therapy [RC] PRN Care 01/21/21 14:44 Active Up With Assistance [RC] ASDIRECTED Care 01/21/21 14:43 Active VTE/DVT Education [RC] PER UNIT ROUTINE Care 01/21/21 14:44 Active Vital Signs [RC] Q4H Care 01/21/21 14:44 Active Consult to Case Management/Technology Analyst [CONS] Cons 01/21/21 14:43 Active Routine Regular Diet [DIET] Diet 01/21/21 Dinner Active ACETAMINOPHEN [CHEM] Routine Lab 01/21/21 16:10 Received ACETAMINOPHEN [CHEM] Routine Lab 01/21/21 21:00 Ordered ACETAMINOPHEN [CHEM] Routine Lab 01/22/21 06:00 Ordered BASIC METABOLIC PANEL,BMP [CHEM] DAILY Lab 01/22/21 06:00 Ordered BASIC METABOLIC PANEL,BMP [CHEM] DAILY Lab 01/23/21 06:00 Ordered BASIC METABOLIC PANEL,BMP [CHEM] DAILY Lab 01/24/21 06:00 Ordered BASIC METABOLIC PANEL,BMP [CHEM] DAILY Lab 01/25/21 06:00 Ordered BASIC METABOLIC PANEL,BMP [CHEM] DAILY Lab 01/26/21 06:00 Ordered CBC WITH AUTO DIFF [HEME] DAILY Lab 01/22/21 06:00 Ordered CBC WITH AUTO DIFF [HEME] DAILY Lab 01/23/21 06:00 Ordered CBC WITH AUTO DIFF [HEME] DAILY Lab 01/24/21 06:00 Ordered CBC WITH AUTO DIFF [HEME] DAILY Lab 01/25/21 06:00 Ordered CBC WITH AUTO DIFF [HEME] DAILY Lab 01/26/21 06:00 Ordered HEPATIC FUNCTION PANEL,[facility] [CHEM] DAILY Lab 01/22/21 06:00 Ordered HEPATIC FUNCTION PANEL,[facility] [CHEM] DAILY Lab 01/23/21 06:00 Ordered HEPATIC FUNCTION PANEL,[facility] [CHEM] DAILY Lab 01/24/21 06:00 Ordered HEPATIC FUNCTION PANEL,[facility] [CHEM] DAILY Lab 01/25/21 06:00 Ordered HEPATIC FUNCTION PANEL,[facility] [CHEM] DAILY Lab 01/26/21 06:00 Ordered HEPATIC FUNCTION PANEL,[facility] [CHEM] Routine Lab 01/21/21 16:10 Received HEPATIC FUNCTION PANEL,[facility] [CHEM] Routine Lab 01/21/21 21:00 Ordered INR,PT,PROTHROMBIN TIME [COAG] DAILY Lab 01/22/21 06:00 Ordered INR,PT,PROTHROMBIN TIME [COAG] DAILY Lab 01/23/21 06:00 Ordered INR,PT,PROTHROMBIN TIME [COAG] DAILY Lab 01/24/21 06:00 Ordered INR,PT,PROTHROMBIN TIME [COAG] DAILY Lab 01/25/21 06:00 Ordered INR,PT,PROTHROMBIN TIME [COAG] DAILY Lab 01/26/21 06:00 Ordered Acetylcysteine [Acetadote 20%] 4,900 mg Med 01/21/21 14:00 Active Dextrose 5% in Water 500 ml IV ONETIME Acetylcysteine [Acetadote 20%] 9,800 mg Med 01/21/21 18:00 Active Dextrose 5% in Water 1,000 ml IV ONETIME Ampicillin/Sulbactam Na [Unasyn] 3 gm Med 01/21/21 15:00 Active Sodium Chloride 0.9% [Normal Saline] 100 ml IV Q6H Heparin Sodium Med 01/21/21 14:45 Active 5,000 units SUBCUT Q8H oxyCODONE Med 01/21/21 14:43 Active 5 mg PO Q4H PRN Medication Orders Heparin Sodium (Porcine) (Heparin Sodium 5,000 Units/Ml Vial) 5,000 units SUBCUT Q8H [facility] Last Admin: 01/21/21 15:09 Dose: 5,000 units Documented by: AYDEN Acetylcysteine 4,900 mg/ (Dextrose/Water) 524.5 mls @ 131.125 mls/hr IV ONETIME ONE Stop: 01/21/21 17:59 Last Admin: 01/21/21 14:28 Dose: 131.125 mls/hr Documented by: AYDEN Acetylcysteine 9,800 mg/ (Dextrose/Water) 1,049 mls @ 65.563 mls/hr IV ONETIME ONE Stop: 01/22/21 09:59 Ampicillin Sodium/Sulbactam (Sodium 3 gm/ Sodium Chloride) 100 mls @ 200 mls/hr IV Q6H TATA Oxycodone HCl (Oxycodone 5 Mg Tab) 5 mg PO Q4H PRN PRN Reason: Pain (moderate 4-6) Last Admin: 01/21/21 15:10 Dose: 5 mg Documented by: AYDEN Assessment/Plan Comment:: Assessment: This is a 65F with PMhx of arthritis presenting with suspected odontogenic infection and suspected acetaminophen toxicity. 1. Suspected odontogenic infection 2. Suspected acetaminophen toxicity 3. Morbid obesity 4. Anion gap metabolic acidosis 5. Transaminitis 6. Mild Thrombocytopenia 7. Metabolic encephalopathy Plan -continue mucomyst protocol -serial tylenol levels -serial LFTS -daily INR -IVF -repeat BMP in AM -discontinue tylenol -continue unasyn -outpatient dentistry referral Code-Full; presumed DVT ppx-heparin subq - Mortality Measure Prognosis:: Good
[2021-01-21] MEDS: Ampicillin/Sulbactam Na 3 GM in Sodium Chloride 0.9% 100 ML IV SCH (18:47)
[2021-01-21] MEDS ORDERED: Ondansetron 4 MG/2 ML SDV IVPUSH PRN (21:45)
[2021-01-21] MEDS: HYDROmorphone 0.5 MG/0.5 ML Syringe IVPUSH PRN (23:22)
[2021-01-22] MEDS: Ampicillin/Sulbactam Na 3 GM in Sodium Chloride 0.9% 100 ML IV SCH ×4 (00:41→19:04)
[2021-01-22] MEDS: HYDROmorphone 0.5 MG/0.5 ML Syringe IVPUSH PRN (02:35)
[2021-01-22] MEDS: oxyCODONE 5 MG Tab PO PRN ×4 (03:05→21:20)
[2021-01-22 06:51] LABS: ACETAMINOPHEN 0 ug/mL (10-30)
[2021-01-22] MEDS: Heparin Sodium 5,000 Units/ML Vial SUBCUT SCH ×3 (07:00→21:45)
[2021-01-22] MEDS ORDERED: Sodium Chloride 0.9% 10 ML Syringe FLUSH ONE (08:09)
[2021-01-22] MEDS ORDERED: Iopamidol 612 MG/ML 100 ML Bottle IVPUSH ONE (08:09)
--- NOTE | 2021-01-22 09:22 | CT ---
CT neck Technique: Multiple axial sections through the neck were obtained. Intravenous contrast was utilized. Reconstructed coronal and sagittal images were obtained. Comparison: No prior neck imaging is available. Prior head CT study of 01/21/21. Findings: Diffuse soft tissue thickening is seen beginning at the level of the anterior left mandible and extending superiorly along the anterior face to involve the medial left orbit as well as soft tissue swelling within the lower periorbital region on the left side. Very slight soft tissue density is also noted slightly superior to the left orbit within the inferior frontal scalp. There is a focal masslike lesion located next to the mandible measuring approximately 1.5 cm. This does not appear to be cystic and does not represent a drainable abscess although it puts the patient at risk for future abscess if this progresses. There appears to be dental caries on the left side. There is minimal cortical lesion being seen within the anterolateral left mandible which could possibly represent a minimal area of osteomyelitis as this is asymmetric to the opposite side. No definite dental abscess is seen. There is fairly severe mucosal thickening within the right sphenoid sinus. Other visualized paranasal sinuses show nothing acute. Bone window setting shows scattered disc space narrowing as well as anterior posterior osteophytes scattered throughout the spine. Diffuse apophyseal degenerative change is also noted within the cervical spine. Impression: 1. Dental caries on the left side. 2. Diffuse soft tissue thickening starting at the level of the mandible and extending superiorly to involve portions of the periorbital soft tissues on the left side with minimal density seen within the lower left frontal scalp. 3. 1.5 cm soft tissue finding within the lower left neck which does not have fluid measurements and does not represent a drainable abscess. This finding does put the patient at risk for future abscess. 4. Small cortical abnormality within the anterior oral left mandible possibly due to minimal area of osteomyelitis. No definite dental abscess is seen. 5. Mucosal thickening within the right side of the sphenoid sinus most likely chronic. Diagnostic code #5
[2021-01-22] MEDS: Dexamethasone 4 MG/ML SDV IVPUSH SCH ×3 (09:30→21:20)
[2021-01-22] MEDS: Pantoprazole 40 MG Vial IVPUSH SCH (09:35)
[2021-01-22] MEDS: Vancomycin 1 GM, Vancomycin 500 MG in Sodium Chloride 0.9% 500 ML IV ONE ×2 (12:36→12:45)
--- NOTE | 2021-01-22 12:58 | PCM.PN ---
- General Info Date of Service: 01/22/21 Admission Dx/Problem (Free Text): Admission Diagnosis/Problem Admission Diagnosis/Problem Acetaminophen overdose Subjective Update: Patient with increased dental pain noted to have increased swelling of neck and face denies chest pain denies sob - Patient Data Vitals - Most Recent: Last Vital Signs Temp 97.7 F 01/22/21 11:29 Pulse 103 H 01/22/21 11:29 Resp 18 01/22/21 11:29 BP 132/89 01/22/21 11:29 Pulse Ox 92 L 01/22/21 11:29 Weight - Most Recent: 252 lb 14.4 oz I&O - Last 24 Hours: Intake & Output 01/21/21 01/22/21 01/22/21 22:59 06:59 14:59 Intake Total 620 960 Output Total 625 100 250 Balance -625 520 710 Lab Results Last 24 Hours: Laboratory Results - last 24 hr 01/21/21 01/21/21 01/21/21 Range/Units 10:55 13:00 13:00 WBC (3.98-10.04) K/mm3 RBC (3.98-5.22) M/mm3 Hgb (11.2-15.7) gm/dl Hct (34.1-44.9) % MCV (79.4-94.8) fl MCH (25.6-32.2) pg MCHC (32.2-35.5) g/dl RDW Std Deviation (36.4-46.3) fL Plt Count (182-369) K/mm3 MPV (9.4-12.3) fl Neut % (Auto) (34.0-71.1) % Lymph % (Auto) (19.3-51.7) % Sherman % (Auto) (4.7-12.5) % Eos % (Auto) (0.7-5.8) Baso % (Auto) (0.1-1.2) % Neut # (Auto) (1.56-6.13) K/mm3 Lymph # (Auto) (1.18-3.74) K/mm3 Sherman # (Auto) (0.24-0.36) K/mm3 Eos # (Auto) (0.04-0.36) K/mm3 Baso # (Auto) (0.01-0.08) K/mm3 PT (9.7-12.0) SECONDS INR Sodium (136-145) mEq/L Potassium (3.5-5.1) mEq/L Chloride (98-107) mEq/L Carbon Dioxide (21-32) mEq/L Anion Gap (5-15) BUN (7-18) mg/dL Creatinine (0.55-1.02) mg/dL Est Cr Clr Drug Dosing mL/min Estimated GFR (MDRD) (>60) mL/min BUN/Creatinine Ratio (14-18) Glucose (70-99) mg/dL Calcium (8.5-10.1) mg/dL Total Bilirubin (0.2-1.0) mg/dL Direct Bilirubin (0.0-0.2) mg/dl Indirect Bilirubin AST (15-37) U/L ALT (14-59) U/L Alkaline Phosphatase (46-116) U/L Total Protein (6.4-8.2) g/dl Albumin (3.4-5.0) g/dl Globulin gm/dL Albumin/Globulin Ratio (1-2) Urine Color Yellow (Yellow) Urine Appearance Clear (Clear) Urine pH 5.5 (5.0-8.0) Ur Specific [place] > or = 1.030 (1.005-1.030) Urine Protein 1+ H (Negative) Urine Glucose (UA) Negative (Negative) Urine Ketones 2+ H (Negative) Urine Occult Blood Negative (Negative) Urine Nitrite Negative (Negative) Urine Bilirubin 1+ H (Negative) Urine Urobilinogen 0.2 (0.2-1.0) Ur Leukocyte Esterase Negative (Negative) U Hyaline Cast (Auto) 0-5 (0-5) /lpf Urine RBC Not seen (0-5) /hpf Urine WBC 0-5 (0-5) /hpf Ur Epithelial Cells 0-5 (0-5) /hpf Urine Bacteria Moderate H (FEW) /hpf Urine Mucus Few (FEW) /hpf Urine Opiates Screen Negative (HKTYOS=380) Ur Buprenorphine Scrn Negative (CUTOFF=10) Ur Oxycodone Screen Negative (ZZM2QY=414) Urine Methadone Screen Negative (DDUEGB=630) Ur Propoxyphene Screen Negative (OQXKCK=821) Acetaminophen 7 L (10-30) ug/mL Ur Barbiturates Screen Negative (OTHCLY=946) Ur Tricyclics Screen Negative (KNWDIK=871) Ur Phencyclidine Scrn Negative (CUTOFF=25) Ur Amphetamine Screen Negative (RXHZDR=768) U Methamphetamines Scrn Negative (OGWDXY=346) U Benzodiazepines Scrn Negative (AWQRUJ=779) U Cocaine Metab Screen Negative (WUKPKI=843) U Marijuana (THC) Screen Negative (CUTOFF=50) 01/21/21 01/21/21 01/22/21 Range/Units 16:10 21:12 06:08 WBC 7.14 (3.98-10.04) K/mm3 RBC 4.10 (3.98-5.22) M/mm3 Hgb 12.7 (11.2-15.7) gm/dl Hct 37.8 (34.1-44.9) % MCV 92.2 D (79.4-94.8) fl MCH 31.0 (25.6-32.2) pg MCHC 33.6 (32.2-35.5) g/dl RDW Std Deviation 51.4 H (36.4-46.3) fL Plt Count 158 L (182-369) K/mm3 MPV 9.0 L (9.4-12.3) fl Neut % (Auto) 80.7 H (34.0-71.1) % Lymph % (Auto) 12.2 L (19.3-51.7) % Sherman % (Auto) 6.7 (4.7-12.5) % Eos % (Auto) 0.3 L (0.7-5.8) Baso % (Auto) 0.1 (0.1-1.2) % Neut # (Auto) 5.76 (1.56-6.13) K/mm3 Lymph # (Auto) 0.87 L (1.18-3.74) K/mm3 Sherman # (Auto) 0.48 H (0.24-0.36) K/mm3 Eos # (Auto) 0.02 L (0.04-0.36) K/mm3 Baso # (Auto) 0.01 (0.01-0.08) K/mm3 PT (9.7-12.0) SECONDS INR Sodium (136-145) mEq/L Potassium (3.5-5.1) mEq/L Chloride (98-107) mEq/L Carbon Dioxide (21-32) mEq/L Anion Gap (5-15) BUN (7-18) mg/dL Creatinine (0.55-1.02) mg/dL Est Cr Clr Drug Dosing mL/min Estimated GFR (MDRD) (>60) mL/min BUN/Creatinine Ratio (14-18) Glucose (70-99) mg/dL Calcium (8.5-10.1) mg/dL Total Bilirubin 0.5 0.4 (0.2-1.0) mg/dL Direct Bilirubin 0.10 0.10 (0.0-0.2) mg/dl Indirect Bilirubin 0.40 0.30 AST 767 H 515 H (15-37) U/L ALT 403 H 350 H (14-59) U/L Alkaline Phosphatase 40 L 40 L (46-116) U/L Total Protein 7.1 6.9 (6.4-8.2) g/dl Albumin 3.6 3.4 (3.4-5.0) g/dl Globulin 3.5 3.5 gm/dL Albumin/Globulin Ratio 1.0 1.0 (1-2) Urine Color (Yellow) Urine Appearance (Clear) Urine pH (5.0-8.0) Ur Specific [place] (1.005-1.030) Urine Protein (Negative) Urine Glucose (UA) (Negative) Urine Ketones (Negative) Urine Occult Blood (Negative) Urine Nitrite (Negative) Urine Bilirubin (Negative) Urine Urobilinogen (0.2-1.0) Ur Leukocyte Esterase (Negative) U Hyaline Cast (Auto) (0-5) /lpf Urine RBC (0-5) /hpf Urine WBC (0-5) /hpf Ur Epithelial Cells (0-5) /hpf Urine Bacteria (FEW) /hpf Urine Mucus (FEW) /hpf Urine Opiates Screen (AWTYXY=575) Ur Buprenorphine Scrn (CUTOFF=10) Ur Oxycodone Screen (YZP5HF=301) Urine Methadone Screen (NNCFCD=572) Ur Propoxyphene Screen (KTWYMS=890) Acetaminophen 0 L 0 L (10-30) ug/mL Ur Barbiturates Screen (LPINGL=632) Ur Tricyclics Screen (MISGOU=784) Ur Phencyclidine Scrn (CUTOFF=25) Ur Amphetamine Screen (BJHIWE=826) U Methamphetamines Scrn (LFAEYO=624) U Benzodiazepines Scrn (SQHYHV=115) U Cocaine Metab Screen (FRGANA=637) U Marijuana (THC) Screen (CUTOFF=50) 01/22/21 01/22/21 Range/Units 06:08 06:08 WBC (3.98-10.04) K/mm3 RBC (3.98-5.22) M/mm3 Hgb (11.2-15.7) gm/dl Hct (34.1-44.9) % MCV (79.4-94.8) fl MCH (25.6-32.2) pg MCHC (32.2-35.5) g/dl RDW Std Deviation (36.4-46.3) fL Plt Count (182-369) K/mm3 MPV (9.4-12.3) fl Neut % (Auto) (34.0-71.1) % Lymph % (Auto) (19.3-51.7) % [place] % (Auto) (4.7-12.5) % Eos % (Auto) (0.7-5.8) Baso % (Auto) (0.1-1.2) % Neut # (Auto) (1.56-6.13) K/mm3 Lymph # (Auto) (1.18-3.74) K/mm3 [place] # (Auto) (0.24-0.36) K/mm3 Eos # (Auto) (0.04-0.36) K/mm3 Baso # (Auto) (0.01-0.08) K/mm3 PT 11.9 (9.7-12.0) SECONDS INR 1.11 Sodium 131 L (136-145) mEq/L Potassium 3.6 (3.5-5.1) mEq/L Chloride 98 (98-107) mEq/L Carbon Dioxide 18 L (21-32) mEq/L Anion Gap 18.6 H (5-15) BUN 11 (7-18) mg/dL Creatinine 0.6 (0.55-1.02) mg/dL Est Cr Clr Drug Dosing 65.35 mL/min Estimated GFR (MDRD) > 60 (>60) mL/min BUN/Creatinine Ratio 18.3 H (14-18) Glucose 162 H (70-99) mg/dL Calcium 8.0 L (8.5-10.1) mg/dL Total Bilirubin 0.4 (0.2-1.0) mg/dL Direct Bilirubin 0.10 (0.0-0.2) mg/dl Indirect Bilirubin 0.30 AST 286 H (15-37) U/L ALT 274 H (14-59) U/L Alkaline Phosphatase 38 L (46-116) U/L Total Protein 6.7 (6.4-8.2) g/dl Albumin 3.2 L (3.4-5.0) g/dl Globulin 3.5 gm/dL Albumin/Globulin Ratio 0.9 L (1-2) Urine Color (Yellow) Urine Appearance (Clear) Urine pH (5.0-8.0) Ur Specific [place] (1.005-1.030) Urine Protein (Negative) Urine Glucose (UA) (Negative) Urine Ketones (Negative) Urine Occult Blood (Negative) Urine Nitrite (Negative) Urine Bilirubin (Negative) Urine Urobilinogen (0.2-1.0) Ur Leukocyte Esterase (Negative) U Hyaline Cast (Auto) (0-5) /lpf Urine RBC (0-5) /hpf Urine WBC (0-5) /hpf Ur Epithelial Cells (0-5) /hpf Urine Bacteria (FEW) /hpf Urine Mucus (FEW) /hpf Urine Opiates Screen (JHXQOG=278) Ur Buprenorphine Scrn (CUTOFF=10) Ur Oxycodone Screen (LDP0QJ=438) Urine Methadone Screen (TDHAVY=656) Ur Propoxyphene Screen (PCSCZR=611) Acetaminophen 0 L (10-30) ug/mL Ur Barbiturates Screen (HMKWHE=312) Ur Tricyclics Screen (NPZIPD=228) Ur Phencyclidine Scrn (CUTOFF=25) Ur Amphetamine Screen (TSWURT=113) U Methamphetamines Scrn (XBIHZY=253) U Benzodiazepines Scrn (JZMGKB=542) U Cocaine Metab Screen (RFKBUI=203) U Marijuana (THC) Screen (CUTOFF=50) Med Orders - Current: Current Medications Anastrozole (Anastrozole 1 Mg Tab) 1 mg PO DAILY TATA Dexamethasone (Dexamethasone 4 Mg/Ml Sdv) 4 mg IVPUSH Q6H TATA Last Admin: 01/22/21 09:30 Dose: 4 mg Documented by: Heparin Sodium (Porcine) (Heparin Sodium 5,000 Units/Ml Vial) 5,000 units SUBCUT Q8H TATA Last Admin: 01/22/21 07:00 Dose: 5,000 units Documented by: Hydromorphone HCl (Hydromorphone 0.5 Mg/0.5 Ml Syringe) 0.5 mg IVPUSH Q1H PRN PRN Reason: Pain (severe 7-10) Last Admin: 01/22/21 02:35 Dose: 0.5 mg Documented by: Ampicillin Sodium/Sulbactam (Sodium 3 gm/ Sodium Chloride) 100 mls @ 200 mls/hr IV Q6H [facility] Last Admin: 01/22/21 06:50 Dose: 200 mls/hr Documented by: Vancomycin HCl 1 gm/Vancomycin HCl 500 mg/ Sodium Chloride 500 mls @ 250 mls/hr IV ONETIME ONE Stop: 01/22/21 14:59 Last Admin: 01/22/21 12:45 Dose: 250 mls/hr Documented by: Vancomycin HCl 1 gm/ Sodium (Chloride) 250 mls @ 250 mls/hr IV Q12H [facility] Insulin Glargine (Insulin Glarg,Human.Rec.Analog 100 Unit/Ml) 4 unit SUBCUT BEDTIME [facility] Insulin Human Lispro (Insulin Lispro 100 Unit/Ml 10 Ml Vial) 0 unit SUBCUT QIDACANDBED [facility]; Protocol Non-Formulary Medication (Carvedilol) 25 mg PO BID [facility] Ondansetron HCl (Ondansetron 4 Mg/2 Ml Sdv) 4 mg IVPUSH Q4HR PRN PRN Reason: Nausea Last Admin: 01/21/21 21:45 Dose: 4 mg Documented by: Oxycodone HCl (Oxycodone 5 Mg Tab) 5 mg PO Q4H PRN PRN Reason: Pain (moderate 4-6) Last Admin: 01/21/21 19:31 Dose: 5 mg Documented by: Oxycodone HCl (Oxycodone 5 Mg Tab) 10 mg PO Q4H PRN PRN Reason: Pain (severe 7-10) Last Admin: 01/22/21 12:35 Dose: 10 mg Documented by: Pantoprazole Sodium (Pantoprazole 40 Mg Vial) 40 mg IVPUSH DAILY [facility] Last Admin: 01/22/21 09:35 Dose: 40 mg Documented by: Vancomycin HCl (Pharmacy To Dose - Vancomycin) 0 dose .XX ASDIRECTED PRN PRN Reason: RX TO DOSE VANCOMYCIN Venlafaxine HCl (Venlafaxine 75 Mg Cap.Er) 220 mg PO DAILY TATA Discontinued Medications Fentanyl (Fentanyl 100 Mcg/2 Ml Sdv) 50 mcg IVPUSH ONETIME ONE Stop: 01/21/21 13:15 Last Admin: 01/21/21 13:25 Dose: 50 mcg Documented by: Hydromorphone HCl (Hydromorphone 0.5 Mg/0.5 Ml Syringe) 0.5 mg IVPUSH ONETIME ONE Stop: 01/21/21 14:25 Last Admin: 01/21/21 14:28 Dose: 0.5 mg Documented by: Acetylcysteine 14,600 mg/ (Dextrose/Water) 273 mls @ 273 mls/hr IV ONETIME ONE Stop: 01/21/21 13:59 Last Admin: 01/21/21 13:25 Dose: 273 mls/hr Documented by: Acetylcysteine 4,900 mg/ (Dextrose/Water) 524.5 mls @ 131.125 mls/hr IV ONETIME ONE Stop: 01/21/21 17:59 Last Admin: 01/21/21 14:28 Dose: 131.125 mls/hr Documented by: Acetylcysteine 9,800 mg/ (Dextrose/Water) 1,049 mls @ 65.563 mls/hr IV ONETIME ONE Stop: 01/22/21 09:59 Last Infusion: 01/22/21 07:30 Dose: 65 mls/hr Documented by: Ampicillin Sodium/Sulbactam (Sodium 3 gm/ Sodium Chloride) 100 mls @ 200 mls/hr IV Q6H [facility] Last Admin: 01/21/21 18:53 Dose: Not Given Documented by: Iopamidol (Iopamidol 612 Mg/Ml 100 Ml Bottle) 100 ml IVPUSH ONETIME ONE Stop: 01/22/21 08:10 Last Admin: 01/22/21 08:22 Dose: 80 ml Documented by: Ondansetron HCl (Ondansetron 4 Mg/2 Ml Sdv) 4 mg IVPUSH ONETIME ONE Stop: 01/21/21 13:22 Last Admin: 01/21/21 13:24 Dose: 4 mg Documented by: Sodium Chloride (Sodium Chloride 0.9% 10 Ml Syringe) 10 ml FLUSH ONETIME ONE Stop: 01/22/21 08:10 Last Admin: 01/22/21 08:22 Dose: 10 ml Documented by: - Exam General: Alert, Oriented HEENT: EOMI Neck: Supple, Other (Erythema and edema of left face/neck extending to periobrital region ) Lungs: Clear to Auscultation, Normal Respiratory Effort Cardiovascular: Regular Rate, Regular Rhythm GI/Abdominal Exam: Soft, Non-Tender, No Distention Skin: Warm, Dry, Intact Neurological: No New Focal Deficit Psy/Mental Status: Alert, Normal Affect, Normal Mood - Patient Data Lab Results Last 24 hrs: Laboratory Results - last 24 hr 01/21/21 01/21/21 01/21/21 Range/Units 10:55 13:00 13:00 WBC (3.98-10.04) K/mm3 RBC (3.98-5.22) M/mm3 Hgb (11.2-15.7) gm/dl Hct (34.1-44.9) % MCV (79.4-94.8) fl MCH (25.6-32.2) pg MCHC (32.2-35.5) g/dl RDW Std Deviation (36.4-46.3) fL Plt Count (182-369) K/mm3 MPV (9.4-12.3) fl Neut % (Auto) (34.0-71.1) % Lymph % (Auto) (19.3-51.7) % [place] % (Auto) (4.7-12.5) % Eos % (Auto) (0.7-5.8) Baso % (Auto) (0.1-1.2) % Neut # (Auto) (1.56-6.13) K/mm3 Lymph # (Auto) (1.18-3.74) K/mm3 [place] # (Auto) (0.24-0.36) K/mm3 Eos # (Auto) (0.04-0.36) K/mm3 Baso # (Auto) (0.01-0.08) K/mm3 PT (9.7-12.0) SECONDS INR Sodium (136-145) mEq/L Potassium (3.5-5.1) mEq/L Chloride (98-107) mEq/L Carbon Dioxide (21-32) mEq/L Anion Gap (5-15) BUN (7-18) mg/dL Creatinine (0.55-1.02) mg/dL Est Cr Clr Drug Dosing mL/min Estimated GFR (MDRD) (>60) mL/min BUN/Creatinine Ratio (14-18) Glucose (70-99) mg/dL Calcium (8.5-10.1) mg/dL Total Bilirubin (0.2-1.0) mg/dL Direct Bilirubin (0.0-0.2) mg/dl Indirect Bilirubin AST (15-37) U/L ALT (14-59) U/L Alkaline Phosphatase (46-116) U/L Total Protein (6.4-8.2) g/dl Albumin (3.4-5.0) g/dl Globulin gm/dL Albumin/Globulin Ratio (1-2) Urine Color Yellow (Yellow) Urine Appearance Clear (Clear) Urine pH 5.5 (5.0-8.0) Ur Specific [place] > or = 1.030 (1.005-1.030) Urine Protein 1+ H (Negative) Urine Glucose (UA) Negative (Negative) Urine Ketones 2+ H (Negative) Urine Occult Blood Negative (Negative) Urine Nitrite Negative (Negative) Urine Bilirubin 1+ H (Negative) Urine Urobilinogen 0.2 (0.2-1.0) Ur Leukocyte Esterase Negative (Negative) U Hyaline Cast (Auto) 0-5 (0-5) /lpf Urine RBC Not seen (0-5) /hpf Urine WBC 0-5 (0-5) /hpf Ur Epithelial Cells 0-5 (0-5) /hpf Urine Bacteria Moderate H (FEW) /hpf Urine Mucus Few (FEW) /hpf Urine Opiates Screen Negative (RMKPUF=259) Ur Buprenorphine Scrn Negative (CUTOFF=10) Ur Oxycodone Screen Negative (HDO4IZ=899) Urine Methadone Screen Negative (PBSMZN=015) Ur Propoxyphene Screen Negative (BRPWID=065) Acetaminophen 7 L (10-30) ug/mL Ur Barbiturates Screen Negative (GNSNGC=933) Ur Tricyclics Screen Negative (OQDOPG=612) Ur Phencyclidine Scrn Negative (CUTOFF=25) Ur Amphetamine Screen Negative (BAHBHM=113) U Methamphetamines Scrn Negative (MTVJWQ=622) U Benzodiazepines Scrn Negative (EURSRA=574) U Cocaine Metab Screen Negative (FFCRLQ=878) U Marijuana (THC) Screen Negative (CUTOFF=50) 08/09/21 08/09/21 08/10/21 Range/Units 16:10 21:12 06:08 WBC 7.14 (3.98-10.04) K/mm3 RBC 4.10 (3.98-5.22) M/mm3 Hgb 12.7 (11.2-15.7) gm/dl Hct 37.8 (34.1-44.9) % MCV 92.2 D (79.4-94.8) fl MCH 31.0 (25.6-32.2) pg MCHC 33.6 (32.2-35.5) g/dl RDW Std Deviation 51.4 H (36.4-46.3) fL Plt Count 158 L (182-369) K/mm3 MPV 9.0 L (9.4-12.3) fl Neut % (Auto) 80.7 H (34.0-71.1) % Lymph % (Auto) 12.2 L (19.3-51.7) % [place] % (Auto) 6.7 (4.7-12.5) % Eos % (Auto) 0.3 L (0.7-5.8) Baso % (Auto) 0.1 (0.1-1.2) % Neut # (Auto) 5.76 (1.56-6.13) K/mm3 Lymph # (Auto) 0.87 L (1.18-3.74) K/mm3 [place] # (Auto) 0.48 H (0.24-0.36) K/mm3 Eos # (Auto) 0.02 L (0.04-0.36) K/mm3 Baso # (Auto) 0.01 (0.01-0.08) K/mm3 PT (9.7-12.0) SECONDS INR Sodium (136-145) mEq/L Potassium (3.5-5.1) mEq/L Chloride (98-107) mEq/L Carbon Dioxide (21-32) mEq/L Anion Gap (5-15) BUN (7-18) mg/dL Creatinine (0.55-1.02) mg/dL Est Cr Clr Drug Dosing mL/min Estimated GFR (MDRD) (>60) mL/min BUN/Creatinine Ratio (14-18) Glucose (70-99) mg/dL Calcium (8.5-10.1) mg/dL Total Bilirubin 0.5 0.4 (0.2-1.0) mg/dL Direct Bilirubin 0.10 0.10 (0.0-0.2) mg/dl Indirect Bilirubin 0.40 0.30 AST 767 H 515 H (15-37) U/L ALT 403 H 350 H (14-59) U/L Alkaline Phosphatase 40 L 40 L (46-116) U/L Total Protein 7.1 6.9 (6.4-8.2) g/dl Albumin 3.6 3.4 (3.4-5.0) g/dl Globulin 3.5 3.5 gm/dL Albumin/Globulin Ratio 1.0 1.0 (1-2) Urine Color (Yellow) Urine Appearance (Clear) Urine pH (5.0-8.0) Ur Specific [place] (1.005-1.030) Urine Protein (Negative) Urine Glucose (UA) (Negative) Urine Ketones (Negative) Urine Occult Blood (Negative) Urine Nitrite (Negative) Urine Bilirubin (Negative) Urine Urobilinogen (0.2-1.0) Ur Leukocyte Esterase (Negative) U Hyaline Cast (Auto) (0-5) /lpf Urine RBC (0-5) /hpf Urine WBC (0-5) /hpf Ur Epithelial Cells (0-5) /hpf Urine Bacteria (FEW) /hpf Urine Mucus (FEW) /hpf Urine Opiates Screen (KRQOVA=089) Ur Buprenorphine Scrn (CUTOFF=10) Ur Oxycodone Screen (WCS3XK=137) Urine Methadone Screen (FGLEOP=502) Ur Propoxyphene Screen (LAJAAK=175) Acetaminophen 0 L 0 L (10-30) ug/mL Ur Barbiturates Screen (VYJNLM=663) Ur Tricyclics Screen (LKGTOY=108) Ur Phencyclidine Scrn (CUTOFF=25) Ur Amphetamine Screen (IERGNP=517) U Methamphetamines Scrn (EIYNFW=018) U Benzodiazepines Scrn (QDOWBD=199) U Cocaine Metab Screen (TWPWGP=888) U Marijuana (THC) Screen (CUTOFF=50) 01/22/21 01/22/21 Range/Units 06:08 06:08 WBC (3.98-10.04) K/mm3 RBC (3.98-5.22) M/mm3 Hgb (11.2-15.7) gm/dl Hct (34.1-44.9) % MCV (79.4-94.8) fl MCH (25.6-32.2) pg MCHC (32.2-35.5) g/dl RDW Std Deviation (36.4-46.3) fL Plt Count (182-369) K/mm3 MPV (9.4-12.3) fl Neut % (Auto) (34.0-71.1) % Lymph % (Auto) (19.3-51.7) % [place] % (Auto) (4.7-12.5) % Eos % (Auto) (0.7-5.8) Baso % (Auto) (0.1-1.2) % Neut # (Auto) (1.56-6.13) K/mm3 Lymph # (Auto) (1.18-3.74) K/mm3 [place] # (Auto) (0.24-0.36) K/mm3 Eos # (Auto) (0.04-0.36) K/mm3 Baso # (Auto) (0.01-0.08) K/mm3 PT 11.9 (9.7-12.0) SECONDS INR 1.11 Sodium 131 L (136-145) mEq/L Potassium 3.6 (3.5-5.1) mEq/L Chloride 98 (98-107) mEq/L Carbon Dioxide 18 L (21-32) mEq/L Anion Gap 18.6 H (5-15) BUN 11 (7-18) mg/dL Creatinine 0.6 (0.55-1.02) mg/dL Est Cr Clr Drug Dosing 65.35 mL/min Estimated GFR (MDRD) > 60 (>60) mL/min BUN/Creatinine Ratio 18.3 H (14-18) Glucose 162 H (70-99) mg/dL Calcium 8.0 L (8.5-10.1) mg/dL Total Bilirubin 0.4 (0.2-1.0) mg/dL Direct Bilirubin 0.10 (0.0-0.2) mg/dl Indirect Bilirubin 0.30 AST 286 H (15-37) U/L ALT 274 H (14-59) U/L Alkaline Phosphatase 38 L (46-116) U/L Total Protein 6.7 (6.4-8.2) g/dl Albumin 3.2 L (3.4-5.0) g/dl Globulin 3.5 gm/dL Albumin/Globulin Ratio 0.9 L (1-2) Urine Color (Yellow) Urine Appearance (Clear) Urine pH (5.0-8.0) Ur Specific [place] (1.005-1.030) Urine Protein (Negative) Urine Glucose (UA) (Negative) Urine Ketones (Negative) Urine Occult Blood (Negative) Urine Nitrite (Negative) Urine Bilirubin (Negative) Urine Urobilinogen (0.2-1.0) Ur Leukocyte Esterase (Negative) U Hyaline Cast (Auto) (0-5) /lpf Urine RBC (0-5) /hpf Urine WBC (0-5) /hpf Ur Epithelial Cells (0-5) /hpf Urine Bacteria (FEW) /hpf Urine Mucus (FEW) /hpf Urine Opiates Screen (AWWPAY=205) Ur Buprenorphine Scrn (CUTOFF=10) Ur Oxycodone Screen (LOT9NU=751) Urine Methadone Screen (XMOPZZ=913) Ur Propoxyphene Screen (EKQMGS=032) Acetaminophen 0 L (10-30) ug/mL Ur Barbiturates Screen (YCUBSC=353) Ur Tricyclics Screen (SLJWVR=891) Ur Phencyclidine Scrn (CUTOFF=25) Ur Amphetamine Screen (EMGWUL=204) U Methamphetamines Scrn (XJAMWL=814) U Benzodiazepines Scrn (FGIWTO=685) U Cocaine Metab Screen (ZANTUQ=380) U Marijuana (THC) Screen (CUTOFF=50) Result Diagrams: 01/22/21 06:08 01/22/21 06:08 Imaging Impressions Last 24 hrs: CT Face/Neck 1. Sepsis Event Note - Evaluation Sepsis Screening Result: No Definite Risk - Focused Exam Vital Signs: Vital Signs Temp Pulse Resp BP Pulse Ox 01/22/21 11:29 97.7 F 103 H 18 132/89 92 L 01/22/21 07:57 100.0 F 101 H 16 153/63 H 92 L 01/22/21 07:00 99.3 F 101 H 14 161/69 H 94 L 01/22/21 02:21 99.5 F 109 H 18 157/58 H 93 L - Problem List Review Problem List Initiated/Reviewed/Updated: Yes - My Orders Last 24 Hours: My Active Orders 01/21/21 14:43 Height and Weight [RC] 0600 Up With Assistance [RC] ASDIRECTED Consult to Case Management/Gift Manager [CONS] Routine oxyCODONE 5 mg PO Q4H PRN 01/21/21 14:44 Intake and Output [RC] QSHIFT Oxygen Therapy [RC] PRN VTE/DVT Education [RC] PER UNIT ROUTINE Vital Signs [RC] Q4HR 01/21/21 14:45 Cardiac Monitoring [RC] CONTINUOUS Heparin Sodium 5,000 units SUBCUT Q8H 01/21/21 Dinner Regular Diet [DIET] 01/21/21 18:00 Ampicillin/Sulbactam Na [Unasyn] 3 gm Sodium Chloride 0.9% [Normal Saline] 100 ml IV Q6H 01/21/21 21:45 Ondansetron [Zofran] 4 mg IVPUSH Q4HR PRN 01/21/21 22:28 HYDROmorphone [Dilaudid] 0.5 mg IVPUSH Q1H PRN 01/21/21 23:00 oxyCODONE 10 mg PO Q4H PRN 01/22/21 09:30 Pantoprazole [ProTONIX IV] 40 mg IVPUSH DAILY dexAMETHasone [Decadron] 4 mg IVPUSH Q6H 01/22/21 Lunch NPO Now [Nothing per Oral Now Diet] [DIET] 01/22/21 11:30 Pharmacy to Dose - Vancomycin 0 dose .XX ASDIRECTED PRN 01/22/21 13:00 Vancomycin 1 gm Vancomycin 500 mg Sodium Chloride 0.9% [Normal Saline] 500 ml IV ONETIME 01/22/21 Dinner Heart Healthy Diet [DIET] Insulin Lispro [HumaLOG] See Protocol SUBCUT QIDACANDBED 01/22/21 21:00 Carvedilol 25 mg PO BID 01/23/21 01:00 Vancomycin [Vancocin] 1 gm Sodium Chloride 0.9% [Normal Saline (AdvBag)] 250 ml IV Q12H 01/23/21 06:00 BASIC METABOLIC PANEL,BMP [CHEM] DAILY CBC WITH AUTO DIFF [HEME] DAILY HEPATIC FUNCTION PANEL,HFP [CHEM] DAILY INR,PT,PROTHROMBIN TIME [COAG] DAILY 01/23/21 09:00 Anastrozole [Arimidex] 1 mg PO DAILY Venlafaxine [Effexor XR] 220 mg PO DAILY 01/23/21 21:00 Insulin Glarg,Human.Rec.Analog [LantUS] 4 unit SUBCUT DAILY 01/24/21 06:00 BASIC METABOLIC PANEL,BMP [CHEM] DAILY CBC WITH AUTO DIFF [HEME] DAILY HEPATIC FUNCTION PANEL,HFP [CHEM] DAILY INR,PT,PROTHROMBIN TIME [COAG] DAILY 01/24/21 12:00 VANCOMYCIN TROUGH [CHEM] Timed 01/25/21 06:00 BASIC METABOLIC PANEL,BMP [CHEM] DAILY CBC WITH AUTO DIFF [HEME] DAILY HEPATIC FUNCTION PANEL,HFP [CHEM] DAILY INR,PT,PROTHROMBIN TIME [COAG] DAILY 01/26/21 06:00 BASIC METABOLIC PANEL,BMP [CHEM] DAILY CBC WITH AUTO DIFF [HEME] DAILY HEPATIC FUNCTION PANEL,HFP [CHEM] DAILY INR,PT,PROTHROMBIN TIME [COAG] DAILY - Plan Plan:: Assessment: This is a 65F with PMhx of arthritis presenting with suspected odontogenic infection and suspected acetaminophen toxicity. 1. odontogenic infection/Dental caries 2. Suspected acetaminophen toxicity 3. Morbid obesity 4. Anion gap metabolic acidosis 5. Transaminitis 6. Mild Thrombocytopenia 7. Metabolic encephalopathy; resolved 8. presumed osteomyelitis of Jaw->CT neck and soft tissue showing diffuse soft tissue thickening starting at the level of the mandible and extending superiorly to involve portions of the periorbital soft tissue on the left side with minimal density seen within the lower left frontal scap. 1.5cm soft tissue finding within the lower left neck which does not have fluid measurement and does not represent a drainable abscess. This finding does put the patient at risk for future abscess. Small cortical abnormality within the anterior oral left mandible possible due to minimal area of osteomyelitis; no definite dental abscess is seen 9. Hyperlycemia Plan -completed mucomyst protocol -serial tylenol levels -serial LFTS -daily INR -IVF discontinue -repeat BMP in AM -discontinue tylenol -continue unasyn +vancomycin -outpatient dentistry referral case and imaging discussed with [facility] surgery service no indication for surgery; no indication for bone biopsy Case discussed with [facility]; recommendations; -no indication for emergent transfer to tertiary center -outpatient antibiotic therapy for 6 weeks -Daptomycin; daily -Ertapenem; daily -weekly CBC, BMP, CK. LFTs continue decadron check a1c Code-Full; presumed DVT ppx-heparin subq
[2021-01-22] MEDS: Insulin Lispro 100 UNIT/ML 10 ML Vial SUBCUT SCH ×2 (19:05→21:20)
[2021-01-22] MEDS: Carvedilol 12.5 MG Tab PO SCH (21:19)
[2021-01-22] MEDS ORDERED: Ondansetron 4 MG/2 ML SDV IVPUSH SCH (21:45)
[2021-01-23] MEDS: Ampicillin/Sulbactam Na 3 GM in Sodium Chloride 0.9% 100 ML IV SCH ×4 (00:05→18:52)
[2021-01-23] MEDS: Dexamethasone 4 MG/ML SDV IVPUSH SCH (04:24)
[2021-01-23] MEDS: Heparin Sodium 5,000 Units/ML Vial SUBCUT SCH ×3 (06:20→21:59)
[2021-01-23 07:30] LABS: HEMOGLOBIN A1C 7.3 %
--- NOTE | 2021-01-23 08:53 | PCM.PN ---
- General Info Date of Service: 01/23/21 Admission Dx/Problem (Free Text): Admission Diagnosis/Problem Admission Diagnosis/Problem Acetaminophen overdose Subjective Update: patient feels facial swelling improved denies chest pain denies fever denies cough tolerating diet denies neck pain Functional Status: Reports: Pain Controlled - Review of Systems Cardiovascular: Reports: No Symptoms Gastrointestinal: Reports: No Symptoms Musculoskeletal: Reports: No Symptoms Neurological: Reports: No Symptoms Psychiatric: Reports: No Symptoms - Patient Data Vitals - Most Recent: Last Vital Signs Temp 97.7 F 01/23/21 07:54 Pulse 87 01/23/21 07:54 Resp 16 01/23/21 07:54 BP 148/58 H 01/23/21 07:54 Pulse Ox 95 01/23/21 07:54 Weight - Most Recent: 248 lb 9.6 oz I&O - Last 24 Hours: Intake & Output 01/22/21 01/23/21 01/23/21 22:59 06:59 14:59 Intake Total 1200 550 Output Total 850 450 Balance 350 100 Lab Results Last 24 Hours: Laboratory Results - last 24 hr 01/22/21 01/22/21 01/23/21 Range/Units 18:10 20:58 06:15 WBC 4.64 (3.98-10.04) K/mm3 RBC 3.81 L (3.98-5.22) M/mm3 Hgb 11.7 (11.2-15.7) gm/dl Hct 36.0 (34.1-44.9) % MCV 94.5 (79.4-94.8) fl MCH 30.7 (25.6-32.2) pg MCHC 32.5 (32.2-35.5) g/dl RDW Std Deviation 50.3 H (36.4-46.3) fL Plt Count 162 L (182-369) K/mm3 MPV 8.7 L (9.4-12.3) fl Neut % (Auto) 86.9 H (34.0-71.1) % Lymph % (Auto) 10.1 L (19.3-51.7) % [place] % (Auto) 3.0 L (4.7-12.5) % Eos % (Auto) 0 L (0.7-5.8) Baso % (Auto) 0.0 L (0.1-1.2) % Neut # (Auto) 4.03 (1.56-6.13) K/mm3 Lymph # (Auto) 0.47 L (1.18-3.74) K/mm3 [place] # (Auto) 0.14 L (0.24-0.36) K/mm3 Eos # (Auto) 0.00 L (0.04-0.36) K/mm3 Baso # (Auto) 0.00 L (0.01-0.08) K/mm3 Manual Slide Review Normal smear PT (9.7-12.0) SECONDS INR Sodium (136-145) mEq/L Potassium (3.5-5.1) mEq/L Chloride (98-107) mEq/L Carbon Dioxide (21-32) mEq/L Anion Gap (5-15) BUN (7-18) mg/dL Creatinine (0.55-1.02) mg/dL Est Cr Clr Drug Dosing mL/min Estimated GFR (MDRD) (>60) mL/min BUN/Creatinine Ratio (14-18) Glucose (70-99) mg/dL POC Glucose 250 H 285 H (70-99) mg/dL Hemoglobin A1c ( - 5.6) % Calcium (8.5-10.1) mg/dL Total Bilirubin (0.2-1.0) mg/dL Direct Bilirubin (0.0-0.2) mg/dl Indirect Bilirubin AST (15-37) U/L ALT (14-59) U/L Alkaline Phosphatase (46-116) U/L Total Protein (6.4-8.2) g/dl Albumin (3.4-5.0) g/dl Globulin gm/dL Albumin/Globulin Ratio (1-2) 01/23/21 01/23/21 01/23/21 Range/Units 06:15 06:15 06:15 WBC (3.98-10.04) K/mm3 RBC (3.98-5.22) M/mm3 Hgb (11.2-15.7) gm/dl Hct (34.1-44.9) % MCV (79.4-94.8) fl MCH (25.6-32.2) pg MCHC (32.2-35.5) g/dl RDW Std Deviation (36.4-46.3) fL Plt Count (182-369) K/mm3 MPV (9.4-12.3) fl Neut % (Auto) (34.0-71.1) % Lymph % (Auto) (19.3-51.7) % [place] % (Auto) (4.7-12.5) % Eos % (Auto) (0.7-5.8) Baso % (Auto) (0.1-1.2) % Neut # (Auto) (1.56-6.13) K/mm3 Lymph # (Auto) (1.18-3.74) K/mm3 [place] # (Auto) (0.24-0.36) K/mm3 Eos # (Auto) (0.04-0.36) K/mm3 Baso # (Auto) (0.01-0.08) K/mm3 Manual Slide Review PT 10.6 (9.7-12.0) SECONDS INR 0.99 Sodium 140 (136-145) mEq/L Potassium 4.6 (3.5-5.1) mEq/L Chloride 105 (98-107) mEq/L Carbon Dioxide 24 (21-32) mEq/L Anion Gap 15.6 H (5-15) BUN 12 (7-18) mg/dL Creatinine 0.6 (0.55-1.02) mg/dL Est Cr Clr Drug Dosing 65.35 mL/min Estimated GFR (MDRD) > 60 (>60) mL/min BUN/Creatinine Ratio 20.0 H (14-18) Glucose 231 H (70-99) mg/dL POC Glucose (70-99) mg/dL Hemoglobin A1c 7.3 H ( - 5.6) % Calcium 8.6 (8.5-10.1) mg/dL Total Bilirubin 0.4 (0.2-1.0) mg/dL Direct Bilirubin 0.10 (0.0-0.2) mg/dl Indirect Bilirubin 0.30 AST 73 H (15-37) U/L ALT 162 H (14-59) U/L Alkaline Phosphatase 36 L (46-116) U/L Total Protein 6.7 (6.4-8.2) g/dl Albumin 3.2 L (3.4-5.0) g/dl Globulin 3.5 gm/dL Albumin/Globulin Ratio 0.9 L (1-2) 08/11/21 Range/Units 06:17 WBC (3.98-10.04) K/mm3 RBC (3.98-5.22) M/mm3 Hgb (11.2-15.7) gm/dl Hct (34.1-44.9) % MCV (79.4-94.8) fl MCH (25.6-32.2) pg MCHC (32.2-35.5) g/dl RDW Std Deviation (36.4-46.3) fL Plt Count (182-369) K/mm3 MPV (9.4-12.3) fl Neut % (Auto) (34.0-71.1) % Lymph % (Auto) (19.3-51.7) % [place] % (Auto) (4.7-12.5) % Eos % (Auto) (0.7-5.8) Baso % (Auto) (0.1-1.2) % Neut # (Auto) (1.56-6.13) K/mm3 Lymph # (Auto) (1.18-3.74) K/mm3 [place] # (Auto) (0.24-0.36) K/mm3 Eos # (Auto) (0.04-0.36) K/mm3 Baso # (Auto) (0.01-0.08) K/mm3 Manual Slide Review PT (9.7-12.0) SECONDS INR Sodium (136-145) mEq/L Potassium (3.5-5.1) mEq/L Chloride (98-107) mEq/L Carbon Dioxide (21-32) mEq/L Anion Gap (5-15) BUN (7-18) mg/dL Creatinine (0.55-1.02) mg/dL Est Cr Clr Drug Dosing mL/min Estimated GFR (MDRD) (>60) mL/min BUN/Creatinine Ratio (14-18) Glucose (70-99) mg/dL POC Glucose 236 H (70-99) mg/dL Hemoglobin A1c ( - 5.6) % Calcium (8.5-10.1) mg/dL Total Bilirubin (0.2-1.0) mg/dL Direct Bilirubin (0.0-0.2) mg/dl Indirect Bilirubin AST (15-37) U/L ALT (14-59) U/L Alkaline Phosphatase (46-116) U/L Total Protein (6.4-8.2) g/dl Albumin (3.4-5.0) g/dl Globulin gm/dL Albumin/Globulin Ratio (1-2) Med Orders - Current: Current Medications Anastrozole (Anastrozole 1 Mg Tab) 1 mg PO DAILY [facility] Carvedilol (Carvedilol 12.5 Mg Tab) 25 mg PO BID [facility] Last Admin: 01/22/21 21:19 Dose: 25 mg Documented by: Heparin Sodium (Porcine) (Heparin Sodium 5,000 Units/Ml Vial) 5,000 units SUBCUT Q8H [facility] Last Admin: 01/23/21 06:20 Dose: 5,000 units Documented by: Hydromorphone HCl (Hydromorphone 0.5 Mg/0.5 Ml Syringe) 0.5 mg IVPUSH Q1H PRN PRN Reason: Pain (severe 7-10) Last Admin: 01/22/21 02:35 Dose: 0.5 mg Documented by: Ampicillin Sodium/Sulbactam (Sodium 3 gm/ Sodium Chloride) 100 mls @ 200 mls/hr IV Q6H [facility] Last Admin: 01/23/21 06:19 Dose: 200 mls/hr Documented by: Vancomycin HCl 1 gm/ Sodium (Chloride) 250 mls @ 250 mls/hr IV Q12H [facility] Last Admin: 01/23/21 00:53 Dose: 250 mls/hr Documented by: Insulin Glargine (Insulin Glarg,Human.Rec.Analog 100 Unit/Ml) 4 unit SUBCUT BEDTIME [facility] Insulin Human Lispro (Insulin Lispro 100 Unit/Ml 10 Ml Vial) 0 unit SUBCUT QIDACANDBED [facility]; Protocol Last Admin: 01/22/21 21:20 Dose: 6 units Documented by: Ondansetron HCl (Ondansetron 4 Mg/2 Ml Sdv) 4 mg IVPUSH Q4HR PRN PRN Reason: Nausea Last Admin: 01/21/21 21:45 Dose: 4 mg Documented by: Oxycodone HCl (Oxycodone 5 Mg Tab) 5 mg PO Q4H PRN PRN Reason: Pain (moderate 4-6) Last Admin: 01/21/21 19:31 Dose: 5 mg Documented by: Oxycodone HCl (Oxycodone 5 Mg Tab) 10 mg PO Q4H PRN PRN Reason: Pain (severe 7-10) Last Admin: 01/22/21 21:20 Dose: 10 mg Documented by: Pantoprazole Sodium (Pantoprazole 40 Mg Vial) 40 mg IVPUSH DAILY [facility] Last Admin: 01/22/21 09:35 Dose: 40 mg Documented by: Vancomycin HCl (Pharmacy To Dose - Vancomycin) 0 dose .XX ASDIRECTED PRN PRN Reason: RX TO DOSE VANCOMYCIN Venlafaxine HCl (Venlafaxine 75 Mg Cap.Er) 225 mg PO DAILY [facility] Discontinued Medications Dexamethasone (Dexamethasone 4 Mg/Ml Sdv) 4 mg IVPUSH Q6H [facility] Last Admin: 01/23/21 04:24 Dose: 4 mg Documented by: Fentanyl (Fentanyl 100 Mcg/2 Ml Sdv) 50 mcg IVPUSH ONETIME ONE Stop: 01/21/21 13:15 Last Admin: 01/21/21 13:25 Dose: 50 mcg Documented by: Hydromorphone HCl (Hydromorphone 0.5 Mg/0.5 Ml Syringe) 0.5 mg IVPUSH ONETIME ONE Stop: 01/21/21 14:25 Last Admin: 01/21/21 14:28 Dose: 0.5 mg Documented by: Acetylcysteine 14,600 mg/ (Dextrose/Water) 273 mls @ 273 mls/hr IV ONETIME ONE Stop: 01/21/21 13:59 Last Admin: 01/21/21 13:25 Dose: 273 mls/hr Documented by: Acetylcysteine 4,900 mg/ (Dextrose/Water) 524.5 mls @ 131.125 mls/hr IV ONETIME ONE Stop: 01/21/21 17:59 Last Admin: 01/21/21 14:28 Dose: 131.125 mls/hr Documented by: Acetylcysteine 9,800 mg/ (Dextrose/Water) 1,049 mls @ 65.563 mls/hr IV ONETIME ONE Stop: 01/22/21 09:59 Last Infusion: 01/22/21 07:30 Dose: 65 mls/hr Documented by: Ampicillin Sodium/Sulbactam (Sodium 3 gm/ Sodium Chloride) 100 mls @ 200 mls/hr IV Q6H [facility] Last Admin: 01/21/21 18:53 Dose: Not Given Documented by: Vancomycin HCl 1 gm/Vancomycin HCl 500 mg/ Sodium Chloride 500 mls @ 250 mls/hr IV ONETIME ONE Stop: 01/22/21 14:59 Last Admin: 01/22/21 12:45 Dose: 250 mls/hr Documented by: Iopamidol (Iopamidol 612 Mg/Ml 100 Ml Bottle) 100 ml IVPUSH ONETIME ONE Stop: 01/22/21 08:10 Last Admin: 01/22/21 08:22 Dose: 80 ml Documented by: Ondansetron HCl (Ondansetron 4 Mg/2 Ml Sdv) 4 mg IVPUSH ONETIME ONE Stop: 01/21/21 13:22 Last Admin: 01/21/21 13:24 Dose: 4 mg Documented by: Sodium Chloride (Sodium Chloride 0.9% 10 Ml Syringe) 10 ml FLUSH ONETIME ONE Stop: 01/22/21 08:10 Last Admin: 01/22/21 08:22 Dose: 10 ml Documented by: - Exam General: Alert, Oriented HEENT: EOMI, Mucous Membr. Moist/[place] Neck: Supple Lungs: Clear to Auscultation, Normal Respiratory Effort Cardiovascular: Regular Rate, Regular Rhythm GI/Abdominal Exam: Soft, Non-Tender Back Exam: Normal Inspection Skin: Other (improved erythema of left neck; face; left periorbital region ) Neurological: No New Focal Deficit Psy/Mental Status: Alert, Normal Affect, Normal Mood - Patient Data Lab Results Last 24 hrs: Laboratory Results - last 24 hr 01/22/21 01/22/21 01/23/21 Range/Units 18:10 20:58 06:15 WBC 4.64 (3.98-10.04) K/mm3 RBC 3.81 L (3.98-5.22) M/mm3 Hgb 11.7 (11.2-15.7) gm/dl Hct 36.0 (34.1-44.9) % MCV 94.5 (79.4-94.8) fl MCH 30.7 (25.6-32.2) pg MCHC 32.5 (32.2-35.5) g/dl RDW Std Deviation 50.3 H (36.4-46.3) fL Plt Count 162 L (182-369) K/mm3 MPV 8.7 L (9.4-12.3) fl Neut % (Auto) 86.9 H (34.0-71.1) % Lymph % (Auto) 10.1 L (19.3-51.7) % [place] % (Auto) 3.0 L (4.7-12.5) % Eos % (Auto) 0 L (0.7-5.8) Baso % (Auto) 0.0 L (0.1-1.2) % Neut # (Auto) 4.03 (1.56-6.13) K/mm3 Lymph # (Auto) 0.47 L (1.18-3.74) K/mm3 [place] # (Auto) 0.14 L (0.24-0.36) K/mm3 Eos # (Auto) 0.00 L (0.04-0.36) K/mm3 Baso # (Auto) 0.00 L (0.01-0.08) K/mm3 Manual Slide Review Normal smear PT (9.7-12.0) SECONDS INR Sodium (136-145) mEq/L Potassium (3.5-5.1) mEq/L Chloride (98-107) mEq/L Carbon Dioxide (21-32) mEq/L Anion Gap (5-15) BUN (7-18) mg/dL Creatinine (0.55-1.02) mg/dL Est Cr Clr Drug Dosing mL/min Estimated GFR (MDRD) (>60) mL/min BUN/Creatinine Ratio (14-18) Glucose (70-99) mg/dL POC Glucose 250 H 285 H (70-99) mg/dL Hemoglobin A1c ( - 5.6) % Calcium (8.5-10.1) mg/dL Total Bilirubin (0.2-1.0) mg/dL Direct Bilirubin (0.0-0.2) mg/dl Indirect Bilirubin AST (15-37) U/L ALT (14-59) U/L Alkaline Phosphatase (46-116) U/L Total Protein (6.4-8.2) g/dl Albumin (3.4-5.0) g/dl Globulin gm/dL Albumin/Globulin Ratio (1-2) 01/23/21 01/23/21 01/23/21 Range/Units 06:15 06:15 06:15 WBC (3.98-10.04) K/mm3 RBC (3.98-5.22) M/mm3 Hgb (11.2-15.7) gm/dl Hct (34.1-44.9) % MCV (79.4-94.8) fl MCH (25.6-32.2) pg MCHC (32.2-35.5) g/dl RDW Std Deviation (36.4-46.3) fL Plt Count (182-369) K/mm3 MPV (9.4-12.3) fl Neut % (Auto) (34.0-71.1) % Lymph % (Auto) (19.3-51.7) % [place] % (Auto) (4.7-12.5) % Eos % (Auto) (0.7-5.8) Baso % (Auto) (0.1-1.2) % Neut # (Auto) (1.56-6.13) K/mm3 Lymph # (Auto) (1.18-3.74) K/mm3 [place] # (Auto) (0.24-0.36) K/mm3 Eos # (Auto) (0.04-0.36) K/mm3 Baso # (Auto) (0.01-0.08) K/mm3 Manual Slide Review PT 10.6 (9.7-12.0) SECONDS INR 0.99 Sodium 140 (136-145) mEq/L Potassium 4.6 (3.5-5.1) mEq/L Chloride 105 (98-107) mEq/L Carbon Dioxide 24 (21-32) mEq/L Anion Gap 15.6 H (5-15) BUN 12 (7-18) mg/dL Creatinine 0.6 (0.55-1.02) mg/dL Est Cr Clr Drug Dosing 65.35 mL/min Estimated GFR (MDRD) > 60 (>60) mL/min BUN/Creatinine Ratio 20.0 H (14-18) Glucose 231 H (70-99) mg/dL POC Glucose (70-99) mg/dL Hemoglobin A1c 7.3 H ( - 5.6) % Calcium 8.6 (8.5-10.1) mg/dL Total Bilirubin 0.4 (0.2-1.0) mg/dL Direct Bilirubin 0.10 (0.0-0.2) mg/dl Indirect Bilirubin 0.30 AST 73 H (15-37) U/L ALT 162 H (14-59) U/L Alkaline Phosphatase 36 L (46-116) U/L Total Protein 6.7 (6.4-8.2) g/dl Albumin 3.2 L (3.4-5.0) g/dl Globulin 3.5 gm/dL Albumin/Globulin Ratio 0.9 L (1-2) 01/23/21 Range/Units 06:17 WBC (3.98-10.04) K/mm3 RBC (3.98-5.22) M/mm3 Hgb (11.2-15.7) gm/dl Hct (34.1-44.9) % MCV (79.4-94.8) fl MCH (25.6-32.2) pg MCHC (32.2-35.5) g/dl RDW Std Deviation (36.4-46.3) fL Plt Count (182-369) K/mm3 MPV (9.4-12.3) fl Neut % (Auto) (34.0-71.1) % Lymph % (Auto) (19.3-51.7) % [place] % (Auto) (4.7-12.5) % Eos % (Auto) (0.7-5.8) Baso % (Auto) (0.1-1.2) % Neut # (Auto) (1.56-6.13) K/mm3 Lymph # (Auto) (1.18-3.74) K/mm3 [place] # (Auto) (0.24-0.36) K/mm3 Eos # (Auto) (0.04-0.36) K/mm3 Baso # (Auto) (0.01-0.08) K/mm3 Manual Slide Review PT (9.7-12.0) SECONDS INR Sodium (136-145) mEq/L Potassium (3.5-5.1) mEq/L Chloride (98-107) mEq/L Carbon Dioxide (21-32) mEq/L Anion Gap (5-15) BUN (7-18) mg/dL Creatinine (0.55-1.02) mg/dL Est Cr Clr Drug Dosing mL/min Estimated GFR (MDRD) (>60) mL/min BUN/Creatinine Ratio (14-18) Glucose (70-99) mg/dL POC Glucose 236 H (70-99) mg/dL Hemoglobin A1c ( - 5.6) % Calcium (8.5-10.1) mg/dL Total Bilirubin (0.2-1.0) mg/dL Direct Bilirubin (0.0-0.2) mg/dl Indirect Bilirubin AST (15-37) U/L ALT (14-59) U/L Alkaline Phosphatase (46-116) U/L Total Protein (6.4-8.2) g/dl Albumin (3.4-5.0) g/dl Globulin gm/dL Albumin/Globulin Ratio (1-2) Result Diagrams: 01/23/21 06:15 01/23/21 06:15 Sepsis Event Note - Evaluation Sepsis Screening Result: No Definite Risk - Focused Exam Vital Signs: Vital Signs Temp Pulse Resp BP Pulse Ox 01/23/21 07:54 97.7 F 87 16 148/58 H 95 01/23/21 04:34 97.7 F 84 17 137/54 L 94 L 01/23/21 00:11 97.9 F 85 18 138/87 94 L 01/22/21 21:19 94 134/71 01/22/21 21:16 98.2 F 94 18 134/71 93 L - Problem List Review Problem List Initiated/Reviewed/Updated: Yes - My Orders Last 24 Hours: My Active Orders 01/22/21 09:30 Pantoprazole [ProTONIX IV] 40 mg IVPUSH DAILY 01/22/21 11:30 Pharmacy to Dose - Vancomycin 0 dose .XX ASDIRECTED PRN 01/22/21 15:35 Blood Culture x2 Reflex Set [OM.PC] Stat 01/22/21 15:45 Resuscitation Status Routine 01/22/21 16:15 BLOOD CULTURE [MREF] Stat 01/22/21 16:22 BLOOD CULTURE [MREF] Stat 01/22/21 Dinner Heart Healthy Diet [DIET] Insulin Lispro [HumaLOG] See Protocol SUBCUT QIDACANDBED 01/22/21 18:07 Blood Glucose Check, Bedside [RC] QIDACANDBED 01/22/21 21:00 carvediloL [Coreg] 25 mg PO BID 01/23/21 01:00 Vancomycin [Vancocin] 1 gm Sodium Chloride 0.9% [Normal Saline (AdvBag)] 250 ml IV Q12H 01/23/21 09:00 Anastrozole [Arimidex] 1 mg PO DAILY Venlafaxine [Effexor XR] 225 mg PO DAILY 01/23/21 21:00 Insulin Glarg,Human.Rec.Analog [LantUS] 4 unit SUBCUT BEDTIME 01/24/21 06:00 BASIC METABOLIC PANEL,BMP [CHEM] DAILY CBC WITH AUTO DIFF [HEME] DAILY HEPATIC FUNCTION PANEL,HFP [CHEM] DAILY INR,PT,PROTHROMBIN TIME [COAG] DAILY 01/24/21 12:00 VANCOMYCIN TROUGH [CHEM] Timed 01/25/21 06:00 BASIC METABOLIC PANEL,BMP [CHEM] DAILY CBC WITH AUTO DIFF [HEME] DAILY HEPATIC FUNCTION PANEL,HFP [CHEM] DAILY INR,PT,PROTHROMBIN TIME [COAG] DAILY 01/26/21 06:00 BASIC METABOLIC PANEL,BMP [CHEM] DAILY CBC WITH AUTO DIFF [HEME] DAILY HEPATIC FUNCTION PANEL,HFP [CHEM] DAILY INR,PT,PROTHROMBIN TIME [COAG] DAILY - Plan Plan:: Assessment: This is a 65F with PMhx of arthritis presenting with suspected odontogenic infection and suspected acetaminophen toxicity. 1. odontogenic infection/Dental caries 2. Suspected acetaminophen toxicity 3. Morbid obesity 4. Anion gap metabolic acidosis 5. Transaminitis 6. Mild Thrombocytopenia 7. Metabolic encephalopathy; resolved 8. presumed osteomyelitis of Jaw->CT neck and soft tissue showing diffuse soft tissue thickening starting at the level of the mandible and extending superiorly to involve portions of the periorbital soft tissue on the left side with minimal density seen within the lower left frontal scap. 1.5cm soft tissue finding within the lower left neck which does not have fluid measurement and does not represent a drainable abscess. This finding does put the patient at risk for future abscess. Small cortical abnormality within the anterior oral left mandible possible due to minimal area of osteomyelitis; no definite dental abscess is seen 9. Type II DM a1c 7.3; Hyperlycemia Plan -completed mucomyst protocol -serial tylenol levels completed -serial LFTS -daily INR -IVF discontinued -repeat BMP in AM -discontinue tylenol -continue unasyn +vancomycin -outpatient dentistry referral case and imaging discussed with [facility] surgery service no indication for surgery; no indication for bone biopsy Case discussed with [facility]; recommendations; -no indication for emergent transfer to tertiary center -outpatient antibiotic therapy for 6 weeks -Daptomycin; daily -Ertapenem; daily -weekly CBC, BMP, CK. LFTs discontinue decadron will need PICC line likely vs Thursday F/u Blood cx Code-Full; presumed DVT ppx-heparin subq
[2021-01-23] MEDS: Insulin Lispro 100 UNIT/ML 10 ML Vial SUBCUT SCH ×4 (09:11→21:29)
[2021-01-23] MEDS: Venlafaxine 75 MG Cap.ER PO SCH (09:11)
[2021-01-23] MEDS: Anastrozole 1 MG Tab PO SCH (09:12)
[2021-01-23] MEDS: Pantoprazole 40 MG Vial IVPUSH SCH (09:12)
[2021-01-23] MEDS: Carvedilol 12.5 MG Tab PO SCH ×2 (09:18→21:13)
[2021-01-23] MEDS ORDERED: Magnesium Hydroxide 400 MG/5 ML Susp 30 ML Cup PO ONE (10:06)
[2021-01-23] MEDS ORDERED: Pantoprazole 40 MG Tab.CR PO SCH (10:58)
[2021-01-23] MEDS ORDERED: Insulin Glarg,Human.Rec.Analog 100 Unit/ML SUBCUT SCH (21:00)
[2021-01-23] MEDS: oxyCODONE 5 MG Tab PO PRN (21:29)
[2021-01-24] MEDS: Ampicillin/Sulbactam Na 3 GM in Sodium Chloride 0.9% 100 ML IV SCH ×4 (00:11→17:45)
[2021-01-24] MEDS: oxyCODONE 5 MG Tab PO PRN ×2 (03:42→18:54)
[2021-01-24] MEDS: Heparin Sodium 5,000 Units/ML Vial SUBCUT SCH ×2 (06:24→14:17)
[2021-01-24] MEDS: Venlafaxine 75 MG Cap.ER PO SCH (09:15)
[2021-01-24] MEDS: Pantoprazole 40 MG Tab.CR PO SCH (09:15)
[2021-01-24] MEDS: Insulin Lispro 100 UNIT/ML 10 ML Vial SUBCUT SCH ×4 (09:15→21:02)
[2021-01-24] MEDS: Carvedilol 12.5 MG Tab PO SCH ×2 (09:15→20:39)
[2021-01-24] MEDS: Anastrozole 1 MG Tab PO SCH (09:16)
[2021-01-24] MEDS: Vancomycin 1.75 GM in Sodium Chloride 0.9% 500 ML IV SCH (14:17)
--- NOTE | 2021-01-24 15:33 | PCM.PN ---
- General Info Date of Service: 01/24/21 Admission Dx/Problem (Free Text): Admission Diagnosis/Problem Admission Diagnosis/Problem Acetaminophen overdose Subjective Update: patient facial swelling improved denies neck pain no diarrhea denies visual changes Functional Status: Reports: Pain Controlled - Review of Systems General: Reports: No Symptoms Pulmonary: Reports: No Symptoms Cardiovascular: Reports: No Symptoms Gastrointestinal: Reports: No Symptoms Musculoskeletal: Reports: No Symptoms - Patient Data Vitals - Most Recent: Last Vital Signs Temp 97.5 F 01/24/21 11:26 Pulse 59 L 01/24/21 11:26 Resp 16 01/24/21 11:26 BP 132/49 L 01/24/21 11:26 Pulse Ox 94 L 01/24/21 11:26 Weight - Most Recent: 255 lb 3.2 oz I&O - Last 24 Hours: Intake & Output 01/24/21 01/24/21 01/24/21 06:59 14:59 22:59 Intake Total 800 180 Output Total 650 Balance 150 180 Lab Results Last 24 Hours: Laboratory Results - last 24 hr 01/23/21 01/23/21 01/24/21 Range/Units 17:23 21:06 05:07 WBC 6.87 (3.98-10.04) K/mm3 RBC 3.61 L (3.98-5.22) M/mm3 Hgb 11.0 L (11.2-15.7) gm/dl Hct 34.2 (34.1-44.9) % MCV 94.7 (79.4-94.8) fl MCH 30.5 (25.6-32.2) pg MCHC 32.2 (32.2-35.5) g/dl RDW Std Deviation 49.8 H (36.4-46.3) fL Plt Count 185 (182-369) K/mm3 MPV 9.7 (9.4-12.3) fl Neut % (Auto) 85.8 H (34.0-71.1) % Lymph % (Auto) 9.2 L (19.3-51.7) % Izard % (Auto) 4.7 (4.7-12.5) % Eos % (Auto) 0 L (0.7-5.8) Baso % (Auto) 0.0 L (0.1-1.2) % Neut # (Auto) 5.90 (1.56-6.13) K/mm3 Lymph # (Auto) 0.63 L (1.18-3.74) K/mm3 Izard # (Auto) 0.32 (0.24-0.36) K/mm3 Eos # (Auto) 0.00 L (0.04-0.36) K/mm3 Baso # (Auto) 0.00 L (0.01-0.08) K/mm3 Manual Slide Review Normal smear PT (9.7-12.0) SECONDS INR Sodium (136-145) mEq/L Potassium (3.5-5.1) mEq/L Chloride (98-107) mEq/L Carbon Dioxide (21-32) mEq/L Anion Gap (5-15) BUN (7-18) mg/dL Creatinine (0.55-1.02) mg/dL Est Cr Clr Drug Dosing mL/min Estimated GFR (MDRD) (>60) mL/min BUN/Creatinine Ratio (14-18) Glucose (70-99) mg/dL POC Glucose 285 H 331 H (70-99) mg/dL Calcium (8.5-10.1) mg/dL Total Bilirubin (0.2-1.0) mg/dL Direct Bilirubin (0.0-0.2) mg/dl Indirect Bilirubin AST (15-37) U/L ALT (14-59) U/L Alkaline Phosphatase (46-116) U/L Total Protein (6.4-8.2) g/dl Albumin (3.4-5.0) g/dl Globulin gm/dL Albumin/Globulin Ratio (1-2) Vancomycin Trough (10.0-20.0) 01/24/21 01/24/21 01/24/21 Range/Units 05:07 05:07 06:21 WBC (3.98-10.04) K/mm3 RBC (3.98-5.22) M/mm3 Hgb (11.2-15.7) gm/dl Hct (34.1-44.9) % MCV (79.4-94.8) fl MCH (25.6-32.2) pg MCHC (32.2-35.5) g/dl RDW Std Deviation (36.4-46.3) fL Plt Count (182-369) K/mm3 MPV (9.4-12.3) fl Neut % (Auto) (34.0-71.1) % Lymph % (Auto) (19.3-51.7) % Izard % (Auto) (4.7-12.5) % Eos % (Auto) (0.7-5.8) Baso % (Auto) (0.1-1.2) % Neut # (Auto) (1.56-6.13) K/mm3 Lymph # (Auto) (1.18-3.74) K/mm3 Izard # (Auto) (0.24-0.36) K/mm3 Eos # (Auto) (0.04-0.36) K/mm3 Baso # (Auto) (0.01-0.08) K/mm3 Manual Slide Review PT 10.3 (9.7-12.0) SECONDS INR 0.96 Sodium 135 L (136-145) mEq/L Potassium 4.4 (3.5-5.1) mEq/L Chloride 100 (98-107) mEq/L Carbon Dioxide 28 (21-32) mEq/L Anion Gap 11.4 (5-15) BUN 18 (7-18) mg/dL Creatinine 0.6 (0.55-1.02) mg/dL Est Cr Clr Drug Dosing 65.35 mL/min Estimated GFR (MDRD) > 60 (>60) mL/min BUN/Creatinine Ratio 30.0 H (14-18) Glucose 240 H (70-99) mg/dL POC Glucose 211 H (70-99) mg/dL Calcium 8.4 L (8.5-10.1) mg/dL Total Bilirubin 0.3 (0.2-1.0) mg/dL Direct Bilirubin 0.10 (0.0-0.2) mg/dl Indirect Bilirubin 0.20 AST 36 (15-37) U/L ALT 106 H (14-59) U/L Alkaline Phosphatase 40 L (46-116) U/L Total Protein 6.4 (6.4-8.2) g/dl Albumin 3.1 L (3.4-5.0) g/dl Globulin 3.3 gm/dL Albumin/Globulin Ratio 0.9 L (1-2) Vancomycin Trough (10.0-20.0) 01/24/21 01/24/21 Range/Units 11:24 12:06 WBC (3.98-10.04) K/mm3 RBC (3.98-5.22) M/mm3 Hgb (11.2-15.7) gm/dl Hct (34.1-44.9) % MCV (79.4-94.8) fl MCH (25.6-32.2) pg MCHC (32.2-35.5) g/dl RDW Std Deviation (36.4-46.3) fL Plt Count (182-369) K/mm3 MPV (9.4-12.3) fl Neut % (Auto) (34.0-71.1) % Lymph % (Auto) (19.3-51.7) % Izard % (Auto) (4.7-12.5) % Eos % (Auto) (0.7-5.8) Baso % (Auto) (0.1-1.2) % Neut # (Auto) (1.56-6.13) K/mm3 Lymph # (Auto) (1.18-3.74) K/mm3 Izard # (Auto) (0.24-0.36) K/mm3 Eos # (Auto) (0.04-0.36) K/mm3 Baso # (Auto) (0.01-0.08) K/mm3 Manual Slide Review PT (9.7-12.0) SECONDS INR Sodium (136-145) mEq/L Potassium (3.5-5.1) mEq/L Chloride (98-107) mEq/L Carbon Dioxide (21-32) mEq/L Anion Gap (5-15) BUN (7-18) mg/dL Creatinine (0.55-1.02) mg/dL Est Cr Clr Drug Dosing mL/min Estimated GFR (MDRD) (>60) mL/min BUN/Creatinine Ratio (14-18) Glucose (70-99) mg/dL POC Glucose 190 H (70-99) mg/dL Calcium (8.5-10.1) mg/dL Total Bilirubin (0.2-1.0) mg/dL Direct Bilirubin (0.0-0.2) mg/dl Indirect Bilirubin AST (15-37) U/L ALT (14-59) U/L Alkaline Phosphatase (46-116) U/L Total Protein (6.4-8.2) g/dl Albumin (3.4-5.0) g/dl Globulin gm/dL Albumin/Globulin Ratio (1-2) Vancomycin Trough 7.5 L (10.0-20.0) Ke Results Last 24 Hours: Microbiology 01/22/21 16:22 Blood Culture - Preliminary Blood - Venous - Lab Draw 01/22/21 16:15 Blood Culture - Preliminary Blood - Venous Med Orders - Current: Current Medications Anastrozole (Anastrozole 1 Mg Tab) 1 mg PO DAILY [facility] Last Admin: 01/24/21 09:16 Dose: 1 mg Documented by: Carvedilol (Carvedilol 12.5 Mg Tab) 25 mg PO BID [facility] Last Admin: 01/24/21 09:15 Dose: 25 mg Documented by: Heparin Sodium (Porcine) (Heparin Sodium 5,000 Units/Ml Vial) 5,000 units SUBCUT Q8H [facility] Last Admin: 01/24/21 14:17 Dose: 5,000 units Documented by: Hydromorphone HCl (Hydromorphone 0.5 Mg/0.5 Ml Syringe) 0.5 mg IVPUSH Q1H PRN PRN Reason: Pain (severe 7-10) Last Admin: 01/22/21 02:35 Dose: 0.5 mg Documented by: Ampicillin Sodium/Sulbactam (Sodium 3 gm/ Sodium Chloride) 100 mls @ 200 mls/hr IV Q6H [facility] Last Admin: 01/24/21 11:39 Dose: 200 mls/hr Documented by: Vancomycin HCl 1.75 gm/ Sodium (Chloride) 500 mls @ 250 mls/hr IV Q12H [facility] Last Admin: 01/24/21 14:17 Dose: 250 mls/hr Documented by: Insulin Human Lispro (Insulin Lispro 100 Unit/Ml 10 Ml Vial) 0 unit SUBCUT QIDACANDBED [facility]; Protocol Last Admin: 01/24/21 11:39 Dose: 2 units Documented by: Metformin HCl (Metformin 500 Mg Tab) 500 mg PO BIDMEALS [facility] Ondansetron HCl (Ondansetron 4 Mg/2 Ml Sdv) 4 mg IVPUSH Q4HR PRN PRN Reason: Nausea Last Admin: 01/21/21 21:45 Dose: 4 mg Documented by: Oxycodone HCl (Oxycodone 5 Mg Tab) 5 mg PO Q4H PRN PRN Reason: Pain (moderate 4-6) Last Admin: 01/21/21 19:31 Dose: 5 mg Documented by: Oxycodone HCl (Oxycodone 5 Mg Tab) 10 mg PO Q4H PRN PRN Reason: Pain (severe 7-10) Last Admin: 01/24/21 03:42 Dose: 10 mg Documented by: Pantoprazole Sodium (Pantoprazole 40 Mg Tab.Cr) 40 mg PO DAILY [facility] Last Admin: 01/24/21 09:15 Dose: 40 mg Documented by: Vancomycin HCl (Pharmacy To Dose - Vancomycin) 0 dose .XX ASDIRECTED PRN PRN Reason: RX TO DOSE VANCOMYCIN Venlafaxine HCl (Venlafaxine 75 Mg Cap.Er) 225 mg PO DAILY [facility] Last Admin: 01/24/21 09:15 Dose: 225 mg Documented by: Discontinued Medications Dexamethasone (Dexamethasone 4 Mg/Ml Sdv) 4 mg IVPUSH Q6H [facility] Last Admin: 01/23/21 04:24 Dose: 4 mg Documented by: Fentanyl (Fentanyl 100 Mcg/2 Ml Sdv) 50 mcg IVPUSH ONETIME ONE Stop: 01/21/21 13:15 Last Admin: 01/21/21 13:25 Dose: 50 mcg Documented by: Hydromorphone HCl (Hydromorphone 0.5 Mg/0.5 Ml Syringe) 0.5 mg IVPUSH ONETIME ONE Stop: 01/21/21 14:25 Last Admin: 01/21/21 14:28 Dose: 0.5 mg Documented by: Acetylcysteine 14,600 mg/ (Dextrose/Water) 273 mls @ 273 mls/hr IV ONETIME ONE Stop: 01/21/21 13:59 Last Admin: 01/21/21 13:25 Dose: 273 mls/hr Documented by: Acetylcysteine 4,900 mg/ (Dextrose/Water) 524.5 mls @ 131.125 mls/hr IV ONETIME ONE Stop: 01/21/21 17:59 Last Admin: 01/21/21 14:28 Dose: 131.125 mls/hr Documented by: Acetylcysteine 9,800 mg/ (Dextrose/Water) 1,049 mls @ 65.563 mls/hr IV ONETIME ONE Stop: 01/22/21 09:59 Last Infusion: 01/22/21 07:30 Dose: 65 mls/hr Documented by: Ampicillin Sodium/Sulbactam (Sodium 3 gm/ Sodium Chloride) 100 mls @ 200 mls/hr IV Q6H [facility] Last Admin: 01/21/21 18:53 Dose: Not Given Documented by: Vancomycin HCl 1 gm/Vancomycin HCl 500 mg/ Sodium Chloride 500 mls @ 250 mls/hr IV ONETIME ONE Stop: 01/22/21 14:59 Last Admin: 01/22/21 12:45 Dose: 250 mls/hr Documented by: Vancomycin HCl 1 gm/ Sodium (Chloride) 250 mls @ 250 mls/hr IV Q12H [facility] Last Admin: 01/24/21 01:04 Dose: 250 mls/hr Documented by: Insulin Glargine (Insulin Glarg,Human.Rec.Analog 100 Unit/Ml) 4 unit SUBCUT BEDTIME [facility] Last Admin: 01/23/21 21:28 Dose: 4 units Documented by: Iopamidol (Iopamidol 612 Mg/Ml 100 Ml Bottle) 100 ml IVPUSH ONETIME ONE Stop: 01/22/21 08:10 Last Admin: 01/22/21 08:22 Dose: 80 ml Documented by: Magnesium Hydroxide (Magnesium Hydroxide 400 Mg/5 Ml Susp 30 Ml Cup) 30 ml PO ONETIME ONE Stop: 01/23/21 10:07 Last Admin: 01/23/21 12:03 Dose: 30 ml Documented by: Ondansetron HCl (Ondansetron 4 Mg/2 Ml Sdv) 4 mg IVPUSH ONETIME ONE Stop: 01/21/21 13:22 Last Admin: 01/21/21 13:24 Dose: 4 mg Documented by: Pantoprazole Sodium (Pantoprazole 40 Mg Vial) 40 mg IVPUSH DAILY [facility] Last Admin: 01/23/21 09:12 Dose: 40 mg Documented by: Pantoprazole Sodium (Pantoprazole 40 Mg Tab.Cr) 40 mg PO DAILY [facility] Sodium Chloride (Sodium Chloride 0.9% 10 Ml Syringe) 10 ml FLUSH ONETIME ONE Stop: 01/22/21 08:10 Last Admin: 01/22/21 08:22 Dose: 10 ml Documented by: - Exam General: Alert, Oriented HEENT: EOMI Neck: Supple Lungs: Clear to Auscultation, Normal Respiratory Effort Cardiovascular: Regular Rate, Regular Rhythm GI/Abdominal Exam: Soft, Non-Tender, No Distention Back Exam: Normal Inspection Extremities: Normal Inspection Skin: Warm, Dry, Other (improved erythema and edema of left neck/face/jaw; decreased periorbital eye swelling) Neurological: No New Focal Deficit Psy/Mental Status: Alert, Normal Affect, Normal Mood - Patient Data Lab Results Last 24 hrs: Laboratory Results - last 24 hr 01/23/21 01/23/21 01/24/21 Range/Units 17:23 21:06 05:07 WBC 6.87 (3.98-10.04) K/mm3 RBC 3.61 L (3.98-5.22) M/mm3 Hgb 11.0 L (11.2-15.7) gm/dl Hct 34.2 (34.1-44.9) % MCV 94.7 (79.4-94.8) fl MCH 30.5 (25.6-32.2) pg MCHC 32.2 (32.2-35.5) g/dl RDW Std Deviation 49.8 H (36.4-46.3) fL Plt Count 185 (182-369) K/mm3 MPV 9.7 (9.4-12.3) fl Neut % (Auto) 85.8 H (34.0-71.1) % Lymph % (Auto) 9.2 L (19.3-51.7) % Izard % (Auto) 4.7 (4.7-12.5) % Eos % (Auto) 0 L (0.7-5.8) Baso % (Auto) 0.0 L (0.1-1.2) % Neut # (Auto) 5.90 (1.56-6.13) K/mm3 Lymph # (Auto) 0.63 L (1.18-3.74) K/mm3 Izard # (Auto) 0.32 (0.24-0.36) K/mm3 Eos # (Auto) 0.00 L (0.04-0.36) K/mm3 Baso # (Auto) 0.00 L (0.01-0.08) K/mm3 Manual Slide Review Normal smear PT (9.7-12.0) SECONDS INR Sodium (136-145) mEq/L Potassium (3.5-5.1) mEq/L Chloride (98-107) mEq/L Carbon Dioxide (21-32) mEq/L Anion Gap (5-15) BUN (7-18) mg/dL Creatinine (0.55-1.02) mg/dL Est Cr Clr Drug Dosing mL/min Estimated GFR (MDRD) (>60) mL/min BUN/Creatinine Ratio (14-18) Glucose (70-99) mg/dL POC Glucose 285 H 331 H (70-99) mg/dL Calcium (8.5-10.1) mg/dL Total Bilirubin (0.2-1.0) mg/dL Direct Bilirubin (0.0-0.2) mg/dl Indirect Bilirubin AST (15-37) U/L ALT (14-59) U/L Alkaline Phosphatase (46-116) U/L Total Protein (6.4-8.2) g/dl Albumin (3.4-5.0) g/dl Globulin gm/dL Albumin/Globulin Ratio (1-2) Vancomycin Trough (10.0-20.0) 01/24/21 01/24/21 01/24/21 Range/Units 05:07 05:07 06:21 WBC (3.98-10.04) K/mm3 RBC (3.98-5.22) M/mm3 Hgb (11.2-15.7) gm/dl Hct (34.1-44.9) % MCV (79.4-94.8) fl MCH (25.6-32.2) pg MCHC (32.2-35.5) g/dl RDW Std Deviation (36.4-46.3) fL Plt Count (182-369) K/mm3 MPV (9.4-12.3) fl Neut % (Auto) (34.0-71.1) % Lymph % (Auto) (19.3-51.7) % Izard % (Auto) (4.7-12.5) % Eos % (Auto) (0.7-5.8) Baso % (Auto) (0.1-1.2) % Neut # (Auto) (1.56-6.13) K/mm3 Lymph # (Auto) (1.18-3.74) K/mm3 Izard # (Auto) (0.24-0.36) K/mm3 Eos # (Auto) (0.04-0.36) K/mm3 Baso # (Auto) (0.01-0.08) K/mm3 Manual Slide Review PT 10.3 (9.7-12.0) SECONDS INR 0.96 Sodium 135 L (136-145) mEq/L Potassium 4.4 (3.5-5.1) mEq/L Chloride 100 (98-107) mEq/L Carbon Dioxide 28 (21-32) mEq/L Anion Gap 11.4 (5-15) BUN 18 (7-18) mg/dL Creatinine 0.6 (0.55-1.02) mg/dL Est Cr Clr Drug Dosing 65.35 mL/min Estimated GFR (MDRD) > 60 (>60) mL/min BUN/Creatinine Ratio 30.0 H (14-18) Glucose 240 H (70-99) mg/dL POC Glucose 211 H (70-99) mg/dL Calcium 8.4 L (8.5-10.1) mg/dL Total Bilirubin 0.3 (0.2-1.0) mg/dL Direct Bilirubin 0.10 (0.0-0.2) mg/dl Indirect Bilirubin 0.20 AST 36 (15-37) U/L ALT 106 H (14-59) U/L Alkaline Phosphatase 40 L (46-116) U/L Total Protein 6.4 (6.4-8.2) g/dl Albumin 3.1 L (3.4-5.0) g/dl Globulin 3.3 gm/dL Albumin/Globulin Ratio 0.9 L (1-2) Vancomycin Trough (10.0-20.0) 01/24/21 01/24/21 Range/Units 11:24 12:06 WBC (3.98-10.04) K/mm3 RBC (3.98-5.22) M/mm3 Hgb (11.2-15.7) gm/dl Hct (34.1-44.9) % MCV (79.4-94.8) fl MCH (25.6-32.2) pg MCHC (32.2-35.5) g/dl RDW Std Deviation (36.4-46.3) fL Plt Count (182-369) K/mm3 MPV (9.4-12.3) fl Neut % (Auto) (34.0-71.1) % Lymph % (Auto) (19.3-51.7) % Izard % (Auto) (4.7-12.5) % Eos % (Auto) (0.7-5.8) Baso % (Auto) (0.1-1.2) % Neut # (Auto) (1.56-6.13) K/mm3 Lymph # (Auto) (1.18-3.74) K/mm3 Izard # (Auto) (0.24-0.36) K/mm3 Eos # (Auto) (0.04-0.36) K/mm3 Baso # (Auto) (0.01-0.08) K/mm3 Manual Slide Review PT (9.7-12.0) SECONDS INR Sodium (136-145) mEq/L Potassium (3.5-5.1) mEq/L Chloride (98-107) mEq/L Carbon Dioxide (21-32) mEq/L Anion Gap (5-15) BUN (7-18) mg/dL Creatinine (0.55-1.02) mg/dL Est Cr Clr Drug Dosing mL/min Estimated GFR (MDRD) (>60) mL/min BUN/Creatinine Ratio (14-18) Glucose (70-99) mg/dL POC Glucose 190 H (70-99) mg/dL Calcium (8.5-10.1) mg/dL Total Bilirubin (0.2-1.0) mg/dL Direct Bilirubin (0.0-0.2) mg/dl Indirect Bilirubin AST (15-37) U/L ALT (14-59) U/L Alkaline Phosphatase (46-116) U/L Total Protein (6.4-8.2) g/dl Albumin (3.4-5.0) g/dl Globulin gm/dL Albumin/Globulin Ratio (1-2) Vancomycin Trough 7.5 L (10.0-20.0) Result Diagrams: 01/24/21 05:07 01/24/21 05:07 Ke Results Last 24 hrs: Microbiology 01/22/21 16:22 Blood Culture - Preliminary Blood - Venous - Lab Draw 01/22/21 16:15 Blood Culture - Preliminary Blood - Venous Sepsis Event Note - Evaluation Sepsis Screening Result: No Definite Risk - Focused Exam Vital Signs: Vital Signs Temp Pulse Resp BP Pulse Ox 01/24/21 11:26 97.5 F 59 L 16 132/49 L 94 L 01/24/21 09:15 66 157/87 H 01/24/21 07:37 97.9 F 66 16 157/87 H 94 L 01/24/21 03:49 97.3 F 72 18 170/89 H 96 - Problem List Review Problem List Initiated/Reviewed/Updated: Yes - My Orders Last 24 Hours: My Active Orders 01/24/21 07:50 Patient Status [ADT] Routine 01/24/21 09:00 Pantoprazole [ProTONIX] 40 mg PO DAILY 01/24/21 13:30 Vancomycin 1.75 gm Sodium Chloride 0.9% [Normal Saline] 500 ml IV Q12H 01/24/21 17:00 metFORMIN [Glucophage] 500 mg PO BIDMEALS 01/25/21 06:00 BASIC METABOLIC PANEL,BMP [CHEM] DAILY CBC WITH AUTO DIFF [HEME] DAILY HEPATIC FUNCTION PANEL,HFP [CHEM] DAILY 01/26/21 06:00 BASIC METABOLIC PANEL,BMP [CHEM] DAILY CBC WITH AUTO DIFF [HEME] DAILY HEPATIC FUNCTION PANEL,HFP [CHEM] DAILY - Plan Plan:: Assessment: This is a 65F with PMhx of arthritis presenting with suspected odont ogenic infection and suspected acetaminophen toxicity. She underwent CT neck and face which showed CT neck and soft tissue showing diffuse soft tissue thickening starting at the level of the mandible and extending superiorly to involve portions of the periorbital soft tissue on the left side with minimal density seen within the lower left frontal scap. 1.5cm soft tissue finding within the lower left neck which does not have fluid measurement and does not represent a drainable abscess. This finding does put the patient at risk for future abscess. Small cortical abnormality within the anterior oral left mandible possible due to minimal area of osteomyelitis; no definite dental abscess is seen. She was started on antibiotic therapy for osteomyelitis of jaw 1. odontogenic infection/Dental caries 2. Suspected acetaminophen toxicity 3. Morbid obesity 4. Anion gap metabolic acidosis 5. Transaminitis 6. Mild Thrombocytopenia 7. Metabolic encephalopathy; resolved 8. presumed osteomyelitis of Jaw->CT neck and soft tissue showing diffuse soft tissue thickening starting at the level of the mandible and extending superiorly to involve portions of the periorbital soft tissue on the left side with minimal density seen within the lower left frontal scap. 1.5cm soft tissue finding within the lower left neck which does not have fluid measurement and does not represent a drainable abscess. This finding does put the patient at risk for future abscess. Small cortical abnormality within the anterior oral left mandible possible due to minimal area of osteomyelitis; no definite dental abscess is seen 9. Type II DM a1c 7.3; Hyperlycemia Plan -completed mucomyst protocol -serial tylenol levels completed -serial LFTS -daily INR -IVF discontinued -repeat BMP in AM -discontinue tylenol -continue unasyn +vancomycin -outpatient dentistry referral -start metformin will need outpatient follow up; lipid check; eye/retina exam, and other diabetes associated preventative care case and imaging discussed with [facility] surgery service no indication for surgery; no indication for bone biopsy or transfer to tertiary center Case discussed with [facility]; recommendations; -no indication for emergent transfer to tertiary center -outpatient antibiotic therapy for 6 weeks -Daptomycin; daily -Ertapenem; daily -weekly CBC, BMP, CK. LFTs discontinue decadron will need PICC line Thursday F/u Blood cx patient stay is greater than 96 hours due to IV antibiotic treatment for osteomeyelitis of jaw Code-Full; presumed DVT ppx-heparin subq
[2021-01-24] MEDS: metFORMIN 500 MG Tab PO SCH (17:44)
[2021-01-24] MEDS: HYDROmorphone 0.5 MG/0.5 ML Syringe IVPUSH PRN (20:39)
[2021-01-25] MEDS: Ampicillin/Sulbactam Na 3 GM in Sodium Chloride 0.9% 100 ML IV SCH ×5 (00:25→20:30)
[2021-01-25] MEDS: Heparin Sodium 5,000 Units/ML Vial SUBCUT SCH ×3 (00:25→13:57)
[2021-01-25] MEDS: Vancomycin 1.75 GM in Sodium Chloride 0.9% 500 ML IV SCH ×2 (00:58→13:55)
[2021-01-25] MEDS: Insulin Lispro 100 UNIT/ML 10 ML Vial SUBCUT SCH ×4 (06:42→22:12)
[2021-01-25] MEDS: Venlafaxine 75 MG Cap.ER PO SCH (08:09)
[2021-01-25] MEDS: Carvedilol 12.5 MG Tab PO SCH ×2 (08:10→22:13)
[2021-01-25] MEDS: metFORMIN 500 MG Tab PO SCH ×2 (08:12→19:23)
[2021-01-25] MEDS: Pantoprazole 40 MG Tab.CR PO SCH (08:12)
[2021-01-25] MEDS: Anastrozole 1 MG Tab PO SCH (08:13)
[2021-01-25] MEDS ORDERED: Gadobenate Dimeglumine 529 MG/ML 20 ML SDV IVPUSH ONE (11:54)
[2021-01-25] MEDS ORDERED: Sodium Chloride 0.9% 10 ML Syringe FLUSH SCH (12:00)
--- NOTE | 2021-01-25 13:05 | MR ---
MRI maxillofacial (without and with intravenous contrast) Technique: T1 sagittal; T1, T2, T2 gradient echo coronal; variant sequence T2 weighted axial and T2 fat-suppressed axial; post gadolinium T1 fat-suppressed axial and coronal images were obtained. Comparison: Prior CT neck study of 01/22/21. Findings: There is a lobulated fluid-filled structure being seen at the base of the nose within the anterior soft tissues. This shows surrounding enhancement within the adjacent soft tissues but shows no internal enhancement. This finding is suspicious for possible small soft tissue abscess. This finding has maximum transverse dimension of 2.3 cm and right angle dimension of about 6 mm. No abnormal enhancement is seen within the mandible or maxilla. There is mild enhancement being seen within the fat in the left cheek compatible with cellulitis. Slight enhancement is noted around the inferior left orbital region compatible with cellulitis. Impression: 1. Findings suspicious for small abscess inferior to the nasal structure within the soft tissue. Measurements as noted above. 2. Areas of increased signal around the abscess as well as within the left cheek fat and within the left inferior orbital region compatible with cellulitis. 3. No findings of definite osteomyelitis is seen within the maxilla or mandible. Diagnostic code #3
--- NOTE | 2021-01-25 14:54 | PCM.DCSUM1 ---
Discharge Summary - Hospital Course Diagnosis: Stroke: No - Discharge Data Discharge Date: 01/26/21 Discharge Disposition: Home, Self-Care 01 Condition: Good - Referral to Home Health Primary Care Physician: Rachael Nunez MD - Patient Summary/Data Consults: Consultations 01/21/21 14:43 Consult to Case Management/General Service Officer [CONS] Routine - Patient Instructions Diet: Limited Carb (Diabetic Diet) Activity: As Tolerated Notify Provider of: Fever, Increased Pain, Swelling and Redness, Drainage, Nausea and/or Vomiting - Discharge Plan *PRESCRIPTION DRUG MONITORING PROGRAM REVIEWED*: Not Applicable *COPY OF PRESCRIPTION DRUG MONITORING REPORT IN PATIENT DIONICIO: Not Applicable Prescriptions/Med Rec: oxyCODONE 2.5 mg PO Q6H PRN #15 tab PRN Reason: Pain (Severe 7-10) Home Medications: Home Meds Anastrozole [Arimidex] 1 mg PO DAILY 01/21/21 [History] Omeprazole 20 mg PO DAILY 01/21/21 [History] Rizatriptan Benzoate [Rizatriptan] 10 mg PO ASDIRECTED PRN 01/21/21 [History] Venlafaxine HCl [Venlafaxine ER] 225 mg PO DAILY 01/21/21 [History] carvediloL [Carvedilol] 25 mg PO BID 01/21/21 [History] oxyCODONE 2.5 mg PO Q6H PRN #15 tab 01/25/21 [Rx] Oxygen Therapy Mode: Room Air Patient Handouts: Acetaminophen tablets or caplets, PICC Home Care Guide Referrals: Rachael Nunez MD [Primary Care Provider] - 01/29/21 12:45 pm (Establish care appt. and also follow up from hospital discharge) Chelsi Saldivar MD [Ordering Only Provider] - 02/20/21 10:00 am (This is the infectious disease doctor. Please arrive 9:45 Central time. New Address is: [facility] [address] [place], [place] [address]Deonte Campos [place]EL [address] Phone # is [phone] ) - Discharge Summary/Plan Comment DC Time >30 min.: Yes (45 minutes) Total # of Minutes for Discharge Time: 45 minutes - Patient Data Vitals - Most Recent: Last Vital Signs Temp 98.1 F 01/25/21 08:35 Pulse 72 01/25/21 08:35 Resp 16 01/25/21 08:35 BP 153/75 H 01/25/21 08:35 Pulse Ox 97 01/25/21 08:35 Weight - Most Recent: 258 lb 8 oz I&O - Last 24 hours: Intake & Output 01/24/21 01/25/21 01/25/21 22:59 06:59 14:59 Intake Total 1560 550 360 Output Total 900 600 Balance 660 -50 360 Lab Results - Last 24 hrs: Laboratory Results - last 24 hr 01/24/21 01/24/21 01/25/21 Range/Units 17:24 20:41 06:05 WBC 3.38 L (3.98-10.04) K/mm3 RBC 3.56 L (3.98-5.22) M/mm3 Hgb 10.6 L (11.2-15.7) gm/dl Hct 34.1 (34.1-44.9) % MCV 95.8 H (79.4-94.8) fl MCH 29.8 (25.6-32.2) pg MCHC 31.1 L (32.2-35.5) g/dl RDW Std Deviation 49.8 H (36.4-46.3) fL Plt Count 151 L (182-369) K/mm3 MPV 9.5 (9.4-12.3) fl Neut % (Auto) 56.4 (34.0-71.1) % Lymph % (Auto) 31.7 (19.3-51.7) % [place] % (Auto) 10.1 (4.7-12.5) % Eos % (Auto) 0.3 L (0.7-5.8) Baso % (Auto) 0.0 L (0.1-1.2) % Neut # (Auto) 1.91 (1.56-6.13) K/mm3 Lymph # (Auto) 1.07 L (1.18-3.74) K/mm3 [place] # (Auto) 0.34 (0.24-0.36) K/mm3 Eos # (Auto) 0.01 L (0.04-0.36) K/mm3 Baso # (Auto) 0.00 L (0.01-0.08) K/mm3 Sodium (136-145) mEq/L Potassium (3.5-5.1) mEq/L Chloride (98-107) mEq/L Carbon Dioxide (21-32) mEq/L Anion Gap (5-15) BUN (7-18) mg/dL Creatinine (0.55-1.02) mg/dL Est Cr Clr Drug Dosing mL/min Estimated GFR (MDRD) (>60) mL/min BUN/Creatinine Ratio (14-18) Glucose (70-99) mg/dL POC Glucose 205 H 231 H (70-99) mg/dL Calcium (8.5-10.1) mg/dL Total Bilirubin (0.2-1.0) mg/dL Direct Bilirubin (0.0-0.2) mg/dl Indirect Bilirubin AST (15-37) U/L ALT (14-59) U/L Alkaline Phosphatase (46-116) U/L Total Protein (6.4-8.2) g/dl Albumin (3.4-5.0) g/dl Globulin gm/dL Albumin/Globulin Ratio (1-2) 01/25/21 01/25/21 01/25/21 Range/Units 06:05 06:41 12:50 WBC (3.98-10.04) K/mm3 RBC (3.98-5.22) M/mm3 Hgb (11.2-15.7) gm/dl Hct (34.1-44.9) % MCV (79.4-94.8) fl MCH (25.6-32.2) pg MCHC (32.2-35.5) g/dl RDW Std Deviation (36.4-46.3) fL Plt Count (182-369) K/mm3 MPV (9.4-12.3) fl Neut % (Auto) (34.0-71.1) % Lymph % (Auto) (19.3-51.7) % [place] % (Auto) (4.7-12.5) % Eos % (Auto) (0.7-5.8) Baso % (Auto) (0.1-1.2) % Neut # (Auto) (1.56-6.13) K/mm3 Lymph # (Auto) (1.18-3.74) K/mm3 [place] # (Auto) (0.24-0.36) K/mm3 Eos # (Auto) (0.04-0.36) K/mm3 Baso # (Auto) (0.01-0.08) K/mm3 Sodium 137 (136-145) mEq/L Potassium 4.0 (3.5-5.1) mEq/L Chloride 104 (98-107) mEq/L Carbon Dioxide 26 (21-32) mEq/L Anion Gap 11.0 (5-15) BUN 18 (7-18) mg/dL Creatinine 0.6 (0.55-1.02) mg/dL Est Cr Clr Drug Dosing 65.35 mL/min Estimated GFR (MDRD) > 60 (>60) mL/min BUN/Creatinine Ratio 30.0 H (14-18) Glucose 138 H (70-99) mg/dL POC Glucose 127 H 115 H (70-99) mg/dL Calcium 8.2 L (8.5-10.1) mg/dL Total Bilirubin 0.3 (0.2-1.0) mg/dL Direct Bilirubin 0.10 (0.0-0.2) mg/dl Indirect Bilirubin 0.20 AST 26 (15-37) U/L ALT 75 H (14-59) U/L Alkaline Phosphatase 34 L (46-116) U/L Total Protein 5.9 L (6.4-8.2) g/dl Albumin 2.9 L (3.4-5.0) g/dl Globulin 3.0 gm/dL Albumin/Globulin Ratio 1.0 (1-2) HILLARY Results - Last 24 hrs: Microbiology 01/22/21 16:22 Blood Culture - Preliminary Blood - Venous - Lab Draw 01/22/21 16:15 Blood Culture - Preliminary Blood - Venous Med Orders - Current: Current Medications Anastrozole (Anastrozole 1 Mg Tab) 1 mg PO DAILY ON LICENSE OF [facility] Last Admin: 01/25/21 08:13 Dose: 1 mg Documented by: Carvedilol (Carvedilol 12.5 Mg Tab) 25 mg PO BID ON LICENSE OF [facility] Last Admin: 01/25/21 08:10 Dose: 25 mg Documented by: Heparin Sodium (Porcine) (Heparin Sodium 5,000 Units/Ml Vial) 5,000 units SUBCUT Q8H ON LICENSE OF [facility] Last Admin: 01/25/21 13:57 Dose: 5,000 units Documented by: Hydromorphone HCl (Hydromorphone 0.5 Mg/0.5 Ml Syringe) 0.5 mg IVPUSH Q1H PRN PRN Reason: Pain (severe 7-10) Last Admin: 01/24/21 20:39 Dose: 0.5 mg Documented by: Ampicillin Sodium/Sulbactam (Sodium 3 gm/ Sodium Chloride) 100 mls @ 200 mls/hr IV Q6H ON LICENSE OF [facility] Last Admin: 01/25/21 12:55 Dose: 200 mls/hr Documented by: Vancomycin HCl 1.75 gm/ Sodium (Chloride) 500 mls @ 250 mls/hr IV Q12H ON LICENSE OF [facility] Last Admin: 01/25/21 13:55 Dose: 250 mls/hr Documented by: Insulin Human Lispro (Insulin Lispro 100 Unit/Ml 10 Ml Vial) 0 unit SUBCUT QIDACANDBED ON LICENSE OF [facility]; Protocol Last Admin: 01/25/21 12:55 Dose: Not Given Documented by: Metformin HCl (Metformin 500 Mg Tab) 500 mg PO BIDMEALS ON LICENSE OF [facility] Last Admin: 01/25/21 08:12 Dose: 500 mg Documented by: Ondansetron HCl (Ondansetron 4 Mg/2 Ml Sdv) 4 mg IVPUSH Q4HR PRN PRN Reason: Nausea Last Admin: 01/21/21 21:45 Dose: 4 mg Documented by: Oxycodone HCl (Oxycodone 5 Mg Tab) 5 mg PO Q4H PRN PRN Reason: Pain (moderate 4-6) Last Admin: 01/24/21 18:54 Dose: 5 mg Documented by: Oxycodone HCl (Oxycodone 5 Mg Tab) 10 mg PO Q4H PRN PRN Reason: Pain (severe 7-10) Last Admin: 01/24/21 03:42 Dose: 10 mg Documented by: Pantoprazole Sodium (Pantoprazole 40 Mg Tab.Cr) 40 mg PO DAILY ON LICENSE OF [facility] Last Admin: 01/25/21 08:12 Dose: 40 mg Documented by: Sodium Chloride (Sodium Chloride 0.9% 10 Ml Syringe) 20 ml FLUSH ASDIRECTED ON LICENSE OF [facility] Stop: 01/25/21 15:00 Last Admin: 01/25/21 12:28 Dose: 20 ml Documented by: Vancomycin HCl (Pharmacy To Dose - Vancomycin) 0 dose .XX ASDIRECTED PRN PRN Reason: RX TO DOSE VANCOMYCIN Venlafaxine HCl (Venlafaxine 75 Mg Cap.Er) 225 mg PO DAILY ON LICENSE OF [facility] Last Admin: 01/25/21 08:09 Dose: 225 mg Documented by: Discontinued Medications Dexamethasone (Dexamethasone 4 Mg/Ml Sdv) 4 mg IVPUSH Q6H ON LICENSE OF [facility] Last Admin: 01/23/21 04:24 Dose: 4 mg Documented by: Fentanyl (Fentanyl 100 Mcg/2 Ml Sdv) 50 mcg IVPUSH ONETIME ONE Stop: 01/21/21 13:15 Last Admin: 01/21/21 13:25 Dose: 50 mcg Documented by: Gadobenate Dimeglumine (Gadobenate Dimeglumine 529 Mg/Ml 20 Ml Sdv) 20 ml IVPUSH ONETIME ONE Stop: 01/25/21 11:55 Last Admin: 01/25/21 12:28 Dose: 20 ml Documented by: Hydromorphone HCl (Hydromorphone 0.5 Mg/0.5 Ml Syringe) 0.5 mg IVPUSH ONETIME ONE Stop: 01/21/21 14:25 Last Admin: 01/21/21 14:28 Dose: 0.5 mg Documented by: Acetylcysteine 14,600 mg/ (Dextrose/Water) 273 mls @ 273 mls/hr IV ONETIME ONE Stop: 01/21/21 13:59 Last Admin: 01/21/21 13:25 Dose: 273 mls/hr Documented by: Acetylcysteine 4,900 mg/ (Dextrose/Water) 524.5 mls @ 131.125 mls/hr IV ONETIME ONE Stop: 01/21/21 17:59 Last Admin: 01/21/21 14:28 Dose: 131.125 mls/hr Documented by: Acetylcysteine 9,800 mg/ (Dextrose/Water) 1,049 mls @ 65.563 mls/hr IV ONETIME ONE Stop: 01/22/21 09:59 Last Infusion: 01/22/21 07:30 Dose: 65 mls/hr Documented by: Ampicillin Sodium/Sulbactam (Sodium 3 gm/ Sodium Chloride) 100 mls @ 200 mls/hr IV Q6H ON LICENSE OF [facility] Last Admin: 01/21/21 18:53 Dose: Not Given Documented by: Vancomycin HCl 1 gm/Vancomycin HCl 500 mg/ Sodium Chloride 500 mls @ 250 mls/hr IV ONETIME ONE Stop: 01/22/21 14:59 Last Admin: 01/22/21 12:45 Dose: 250 mls/hr Documented by: Vancomycin HCl 1 gm/ Sodium (Chloride) 250 mls @ 250 mls/hr IV Q12H ON LICENSE OF [facility] Last Admin: 01/24/21 01:04 Dose: 250 mls/hr Documented by: Insulin Glargine (Insulin Glarg,Human.Rec.Analog 100 Unit/Ml) 4 unit SUBCUT BEDTIME ON LICENSE OF [facility] Last Admin: 01/23/21 21:28 Dose: 4 units Documented by: Iopamidol (Iopamidol 612 Mg/Ml 100 Ml Bottle) 100 ml IVPUSH ONETIME ONE Stop: 01/22/21 08:10 Last Admin: 01/22/21 08:22 Dose: 80 ml Documented by: Magnesium Hydroxide (Magnesium Hydroxide 400 Mg/5 Ml Susp 30 Ml Cup) 30 ml PO ONETIME ONE Stop: 01/23/21 10:07 Last Admin: 01/23/21 12:03 Dose: 30 ml Documented by: Ondansetron HCl (Ondansetron 4 Mg/2 Ml Sdv) 4 mg IVPUSH ONETIME ONE Stop: 01/21/21 13:22 Last Admin: 01/21/21 13:24 Dose: 4 mg Documented by: Pantoprazole Sodium (Pantoprazole 40 Mg Vial) 40 mg IVPUSH DAILY ON LICENSE OF [facility] Last Admin: 01/23/21 09:12 Dose: 40 mg Documented by: Pantoprazole Sodium (Pantoprazole 40 Mg Tab.Cr) 40 mg PO DAILY ON LICENSE OF [facility] Sodium Chloride (Sodium Chloride 0.9% 10 Ml Syringe) 10 ml FLUSH ONETIME ONE Stop: 01/22/21 08:10 Last Admin: 01/22/21 08:22 Dose: 10 ml Documented by:
--- NOTE | 2021-01-25 18:09 | PCM.PRNOTE ---
- Free Text/Narrative Note: Requested to insert PICC line by attending physician Dr. Badillo for continuous IV therapy.. Patient identified, procedure explained, surgical consent signed. VS reviewed. Right arm abducted and placed on the bedside table. Area cleaned . Right antecubital and upper arm area clean with chloroprep. Mask, head cover and sterile gown. Time out and pre-procedure checklist performedWhole body sterile drape used. Cental line components primed with sterile saline. 3 unsuccessful attempts to start a PIV in a sterile fashion on right basilic vein, 4th attempt successful on antecubital vein, good , catheter capped in a sterile fashion. (20 g IV catheter puncture, good blood flow observed) Distance from antecubital space to mid-chest measured = 52 cm. Area re-prepped with chloraprep, guidewire inserted without resistance, skin infiltrated with 1% Lidocaine and cut dilated, Groshong introducer placed without resistance. Central line (Groshong NXT ClearVue PICC 4F REF [id number], LOT [id number] ) inserted up to the marker 50, CXR done. Image showed the catheter deep in the right atrium. Catheter pulled out to the marker 46 at the skin. Series of CXRs showed correct advancement of the catheter tip. Catheter stylet removed . Connectors and HepLock port attached. System flushed with NS easily multiple times, blood return confirmed.. Patient has been oozing venous blood constantly and keeping pressure with gauze for over 45 minutes was not enough to stop the bleeding. Dr. Badillo has been notified. Per my request Dr. Johnny Flores from the ER arrived and placed 2 absorbable sutures at the catheter insertion site. The bleeding subsided . Catheter is secured (46 cm at the skin) with StatLock, sterile dressing with antibiotic impregnated gel placed. Patient tolerated the procedure well. The pressure dressing with Coban has been placed above the PICC dressing in order to ensure hemostasis. Portable CXR confirms the placement of the PICC tip at SVC junction per radiology. Instructions and PICC care explanation given to the patient. Nursing staff has been instructed to check on PICC site for relapse of bleeding , and for signs of ischemia to the extremity. Times : 15:30 - 17:30
--- NOTE | 2021-01-25 18:11 | PCM.PN ---
- General Info Date of Service: 01/25/21 Admission Dx/Problem (Free Text): Admission Diagnosis/Problem Admission Diagnosis/Problem Acetaminophen overdose Functional Status: Reports: Pain Controlled - Review of Systems General: Reports: No Symptoms HEENT: Reports: No Symptoms Pulmonary: Reports: No Symptoms Cardiovascular: Reports: No Symptoms Gastrointestinal: Reports: No Symptoms Musculoskeletal: Reports: No Symptoms - Patient Data Vitals - Most Recent: Last Vital Signs Temp 98.1 F 01/25/21 08:35 Pulse 72 01/25/21 08:35 Resp 16 01/25/21 08:35 BP 153/75 H 01/25/21 08:35 Pulse Ox 97 01/25/21 08:35 Weight - Most Recent: 258 lb 8 oz I&O - Last 24 Hours: Intake & Output 01/25/21 01/25/21 01/25/21 06:59 14:59 22:59 Intake Total 550 360 380 Output Total 600 Balance -50 360 380 Lab Results Last 24 Hours: Laboratory Results - last 24 hr 01/24/21 01/25/21 01/25/21 Range/Units 20:41 06:05 06:05 WBC 3.38 L (3.98-10.04) K/mm3 RBC 3.56 L (3.98-5.22) M/mm3 Hgb 10.6 L (11.2-15.7) gm/dl Hct 34.1 (34.1-44.9) % MCV 95.8 H (79.4-94.8) fl MCH 29.8 (25.6-32.2) pg MCHC 31.1 L (32.2-35.5) g/dl RDW Std Deviation 49.8 H (36.4-46.3) fL Plt Count 151 L (182-369) K/mm3 MPV 9.5 (9.4-12.3) fl Neut % (Auto) 56.4 (34.0-71.1) % Lymph % (Auto) 31.7 (19.3-51.7) % [place] % (Auto) 10.1 (4.7-12.5) % Eos % (Auto) 0.3 L (0.7-5.8) Baso % (Auto) 0.0 L (0.1-1.2) % Neut # (Auto) 1.91 (1.56-6.13) K/mm3 Lymph # (Auto) 1.07 L (1.18-3.74) K/mm3 [place] # (Auto) 0.34 (0.24-0.36) K/mm3 Eos # (Auto) 0.01 L (0.04-0.36) K/mm3 Baso # (Auto) 0.00 L (0.01-0.08) K/mm3 Sodium 137 (136-145) mEq/L Potassium 4.0 (3.5-5.1) mEq/L Chloride 104 (98-107) mEq/L Carbon Dioxide 26 (21-32) mEq/L Anion Gap 11.0 (5-15) BUN 18 (7-18) mg/dL Creatinine 0.6 (0.55-1.02) mg/dL Est Cr Clr Drug Dosing 65.35 mL/min Estimated GFR (MDRD) > 60 (>60) mL/min BUN/Creatinine Ratio 30.0 H (14-18) Glucose 138 H (70-99) mg/dL POC Glucose 231 H (70-99) mg/dL Calcium 8.2 L (8.5-10.1) mg/dL Total Bilirubin 0.3 (0.2-1.0) mg/dL Direct Bilirubin 0.10 (0.0-0.2) mg/dl Indirect Bilirubin 0.20 AST 26 (15-37) U/L ALT 75 H (14-59) U/L Alkaline Phosphatase 34 L (46-116) U/L Total Protein 5.9 L (6.4-8.2) g/dl Albumin 2.9 L (3.4-5.0) g/dl Globulin 3.0 gm/dL Albumin/Globulin Ratio 1.0 (1-2) 01/25/21 01/25/21 Range/Units 06:41 12:50 WBC (3.98-10.04) K/mm3 RBC (3.98-5.22) M/mm3 Hgb (11.2-15.7) gm/dl Hct (34.1-44.9) % MCV (79.4-94.8) fl MCH (25.6-32.2) pg MCHC (32.2-35.5) g/dl RDW Std Deviation (36.4-46.3) fL Plt Count (182-369) K/mm3 MPV (9.4-12.3) fl Neut % (Auto) (34.0-71.1) % Lymph % (Auto) (19.3-51.7) % [place] % (Auto) (4.7-12.5) % Eos % (Auto) (0.7-5.8) Baso % (Auto) (0.1-1.2) % Neut # (Auto) (1.56-6.13) K/mm3 Lymph # (Auto) (1.18-3.74) K/mm3 [place] # (Auto) (0.24-0.36) K/mm3 Eos # (Auto) (0.04-0.36) K/mm3 Baso # (Auto) (0.01-0.08) K/mm3 Sodium (136-145) mEq/L Potassium (3.5-5.1) mEq/L Chloride (98-107) mEq/L Carbon Dioxide (21-32) mEq/L Anion Gap (5-15) BUN (7-18) mg/dL Creatinine (0.55-1.02) mg/dL Est Cr Clr Drug Dosing mL/min Estimated GFR (MDRD) (>60) mL/min BUN/Creatinine Ratio (14-18) Glucose (70-99) mg/dL POC Glucose 127 H 115 H (70-99) mg/dL Calcium (8.5-10.1) mg/dL Total Bilirubin (0.2-1.0) mg/dL Direct Bilirubin (0.0-0.2) mg/dl Indirect Bilirubin AST (15-37) U/L ALT (14-59) U/L Alkaline Phosphatase (46-116) U/L Total Protein (6.4-8.2) g/dl Albumin (3.4-5.0) g/dl Globulin gm/dL Albumin/Globulin Ratio (1-2) Med Orders - Current: Current Medications Anastrozole (Anastrozole 1 Mg Tab) 1 mg PO DAILY [facility] Last Admin: 01/25/21 08:13 Dose: 1 mg Documented by: Carvedilol (Carvedilol 12.5 Mg Tab) 25 mg PO BID [facility] Last Admin: 01/25/21 08:10 Dose: 25 mg Documented by: Heparin Sodium (Porcine) (Heparin Sodium 5,000 Units/Ml Vial) 5,000 units SUBCUT Q8H [facility] Last Admin: 01/25/21 13:57 Dose: 5,000 units Documented by: Hydromorphone HCl (Hydromorphone 0.5 Mg/0.5 Ml Syringe) 0.5 mg IVPUSH Q1H PRN PRN Reason: Pain (severe 7-10) Last Admin: 01/24/21 20:39 Dose: 0.5 mg Documented by: Ampicillin Sodium/Sulbactam (Sodium 3 gm/ Sodium Chloride) 100 mls @ 200 mls/hr IV Q6H [facility] Last Admin: 01/25/21 12:55 Dose: 200 mls/hr Documented by: Vancomycin HCl 1.75 gm/ Sodium (Chloride) 500 mls @ 250 mls/hr IV Q12H [facility] Last Admin: 01/25/21 13:55 Dose: 250 mls/hr Documented by: Insulin Human Lispro (Insulin Lispro 100 Unit/Ml 10 Ml Vial) 0 unit SUBCUT QI DACANDBED [facility]; Protocol Last Admin: 01/25/21 12:55 Dose: Not Given Documented by: Metformin HCl (Metformin 500 Mg Tab) 500 mg PO BIDMEALS [facility] Last Admin: 01/25/21 08:12 Dose: 500 mg Documented by: Ondansetron HCl (Ondansetron 4 Mg/2 Ml Sdv) 4 mg IVPUSH Q4HR PRN PRN Reason: Nausea Last Admin: 01/21/21 21:45 Dose: 4 mg Documented by: Oxycodone HCl (Oxycodone 5 Mg Tab) 5 mg PO Q4H PRN PRN Reason: Pain (moderate 4-6) Last Admin: 01/24/21 18:54 Dose: 5 mg Documented by: Oxycodone HCl (Oxycodone 5 Mg Tab) 10 mg PO Q4H PRN PRN Reason: Pain (severe 7-10) Last Admin: 01/24/21 03:42 Dose: 10 mg Documented by: Pantoprazole Sodium (Pantoprazole 40 Mg Tab.Cr) 40 mg PO DAILY [facility] Last Admin: 01/25/21 08:12 Dose: 40 mg Documented by: Vancomycin HCl (Pharmacy To Dose - Vancomycin) 0 dose .XX ASDIRECTED PRN PRN Reason: RX TO DOSE VANCOMYCIN Venlafaxine HCl (Venlafaxine 75 Mg Cap.Er) 225 mg PO DAILY [facility] Last Admin: 01/25/21 08:09 Dose: 225 mg Documented by: Discontinued Medications Dexamethasone (Dexamethasone 4 Mg/Ml Sdv) 4 mg IVPUSH Q6H [facility] Last Admin: 01/23/21 04:24 Dose: 4 mg Documented by: Fentanyl (Fentanyl 100 Mcg/2 Ml Sdv) 50 mcg IVPUSH ONETIME ONE Stop: 01/21/21 13:15 Last Admin: 01/21/21 13:25 Dose: 50 mcg Documented by: Gadobenate Dimeglumine (Gadobenate Dimeglumine 529 Mg/Ml 20 Ml Sdv) 20 ml IVPUSH ONETIME ONE Stop: 01/25/21 11:55 Last Admin: 01/25/21 12:28 Dose: 20 ml Documented by: Hydromorphone HCl (Hydromorphone 0.5 Mg/0.5 Ml Syringe) 0.5 mg IVPUSH ONETIME ONE Stop: 01/21/21 14:25 Last Admin: 01/21/21 14:28 Dose: 0.5 mg Documented by: Acetylcysteine 14,600 mg/ (Dextrose/Water) 273 mls @ 273 mls/hr IV ONETIME ONE Stop: 01/21/21 13:59 Last Admin: 01/21/21 13:25 Dose: 273 mls/hr Documented by: Acetylcysteine 4,900 mg/ (Dextrose/Water) 524.5 mls @ 131.125 mls/hr IV ONETIME ONE Stop: 01/21/21 17:59 Last Admin: 01/21/21 14:28 Dose: 131.125 mls/hr Documented by: Acetylcysteine 9,800 mg/ (Dextrose/Water) 1,049 mls @ 65.563 mls/hr IV ONETIME ONE Stop: 01/22/21 09:59 Last Infusion: 01/22/21 07:30 Dose: 65 mls/hr Documented by: Ampicillin Sodium/Sulbactam (Sodium 3 gm/ Sodium Chloride) 100 mls @ 200 mls/hr IV Q6H [facility] Last Admin: 01/21/21 18:53 Dose: Not Given Documented by: Vancomycin HCl 1 gm/Vancomycin HCl 500 mg/ Sodium Chloride 500 mls @ 250 mls/hr IV ONETIME ONE Stop: 01/22/21 14:59 Last Admin: 01/22/21 12:45 Dose: 250 mls/hr Documented by: Vancomycin HCl 1 gm/ Sodium (Chloride) 250 mls @ 250 mls/hr IV Q12H [facility] Last Admin: 01/24/21 01:04 Dose: 250 mls/hr Documented by: Insulin Glargine (Insulin Glarg,Human.Rec.Analog 100 Unit/Ml) 4 unit SUBCUT BEDTIME [facility] Last Admin: 01/23/21 21:28 Dose: 4 units Documented by: Iopamidol (Iopamidol 612 Mg/Ml 100 Ml Bottle) 100 ml IVPUSH ONETIME ONE Stop: 01/22/21 08:10 Last Admin: 01/22/21 08:22 Dose: 80 ml Documented by: Magnesium Hydroxide (Magnesium Hydroxide 400 Mg/5 Ml Susp 30 Ml Cup) 30 ml PO ONETIME ONE Stop: 01/23/21 10:07 Last Admin: 01/23/21 12:03 Dose: 30 ml Documented by: Ondansetron HCl (Ondansetron 4 Mg/2 Ml Sdv) 4 mg IVPUSH ONETIME ONE Stop: 01/21/21 13:22 Last Admin: 01/21/21 13:24 Dose: 4 mg Documented by: Pantoprazole Sodium (Pantoprazole 40 Mg Vial) 40 mg IVPUSH DAILY [facility] Last Admin: 01/23/21 09:12 Dose: 40 mg Documented by: Pantoprazole Sodium (Pantoprazole 40 Mg Tab.Cr) 40 mg PO DAILY [facility] Sodium Chloride (Sodium Chloride 0.9% 10 Ml Syringe) 10 ml FLUSH ONETIME ONE Stop: 01/22/21 08:10 Last Admin: 01/22/21 08:22 Dose: 10 ml Documented by: Sodium Chloride (Sodium Chloride 0.9% 10 Ml Syringe) 20 ml FLUSH ASDIRECTED [facility] Stop: 01/25/21 15:00 Last Admin: 01/25/21 12:28 Dose: 20 ml Documented by: - Exam General: Alert, Oriented HEENT: EOMI, Mucous Membr. Moist/[place] Neck: Supple Lungs: Clear to Auscultation, Normal Respiratory Effort Cardiovascular: Regular Rate, Regular Rhythm GI/Abdominal Exam: Soft, Non-Tender, No Distention Back Exam: Normal Inspection Extremities: Normal Inspection Skin: Warm, Dry, Intact Neurological: No New Focal Deficit Psy/Mental Status: Alert, Normal Affect, Normal Mood - Patient Data Lab Results Last 24 hrs: Laboratory Results - last 24 hr 01/24/21 01/25/21 01/25/21 Range/Units 20:41 06:05 06:05 WBC 3.38 L (3.98-10.04) K/mm3 RBC 3.56 L (3.98-5.22) M/mm3 Hgb 10.6 L (11.2-15.7) gm/dl Hct 34.1 (34.1-44.9) % MCV 95.8 H (79.4-94.8) fl MCH 29.8 (25.6-32.2) pg MCHC 31.1 L (32.2-35.5) g/dl RDW Std Deviation 49.8 H (36.4-46.3) fL Plt Count 151 L (182-369) K/mm3 MPV 9.5 (9.4-12.3) fl Neut % (Auto) 56.4 (34.0-71.1) % Lymph % (Auto) 31.7 (19.3-51.7) % [place] % (Auto) 10.1 (4.7-12.5) % Eos % (Auto) 0.3 L (0.7-5.8) Baso % (Auto) 0.0 L (0.1-1.2) % Neut # (Auto) 1.91 (1.56-6.13) K/mm3 Lymph # (Auto) 1.07 L (1.18-3.74) K/mm3 [place] # (Auto) 0.34 (0.24-0.36) K/mm3 Eos # (Auto) 0.01 L (0.04-0.36) K/mm3 Baso # (Auto) 0.00 L (0.01-0.08) K/mm3 Sodium 137 (136-145) mEq/L Potassium 4.0 (3.5-5.1) mEq/L Chloride 104 (98-107) mEq/L Carbon Dioxide 26 (21-32) mEq/L Anion Gap 11.0 (5-15) BUN 18 (7-18) mg/dL Creatinine 0.6 (0.55-1.02) mg/dL Est Cr Clr Drug Dosing 65.35 mL/min Estimated GFR (MDRD) > 60 (>60) mL/min BUN/Creatinine Ratio 30.0 H (14-18) Glucose 138 H (70-99) mg/dL POC Glucose 231 H (70-99) mg/dL Calcium 8.2 L (8.5-10.1) mg/dL Total Bilirubin 0.3 (0.2-1.0) mg/dL Direct Bilirubin 0.10 (0.0-0.2) mg/dl Indirect Bilirubin 0.20 AST 26 (15-37) U/L ALT 75 H (14-59) U/L Alkaline Phosphatase 34 L (46-116) U/L Total Protein 5.9 L (6.4-8.2) g/dl Albumin 2.9 L (3.4-5.0) g/dl Globulin 3.0 gm/dL Albumin/Globulin Ratio 1.0 (1-2) 01/25/21 01/25/21 Range/Units 06:41 12:50 WBC (3.98-10.04) K/mm3 RBC (3.98-5.22) M/mm3 Hgb (11.2-15.7) gm/dl Hct (34.1-44.9) % MCV (79.4-94.8) fl MCH (25.6-32.2) pg MCHC (32.2-35.5) g/dl RDW Std Deviation (36.4-46.3) fL Plt Count (182-369) K/mm3 MPV (9.4-12.3) fl Neut % (Auto) (34.0-71.1) % Lymph % (Auto) (19.3-51.7) % [place] % (Auto) (4.7-12.5) % Eos % (Auto) (0.7-5.8) Baso % (Auto) (0.1-1.2) % Neut # (Auto) (1.56-6.13) K/mm3 Lymph # (Auto) (1.18-3.74) K/mm3 [place] # (Auto) (0.24-0.36) K/mm3 Eos # (Auto) (0.04-0.36) K/mm3 Baso # (Auto) (0.01-0.08) K/mm3 Sodium (136-145) mEq/L Potassium (3.5-5.1) mEq/L Chloride (98-107) mEq/L Carbon Dioxide (21-32) mEq/L Anion Gap (5-15) BUN (7-18) mg/dL Creatinine (0.55-1.02) mg/dL Est Cr Clr Drug Dosing mL/min Estimated GFR (MDRD) (>60) mL/min BUN/Creatinine Ratio (14-18) Glucose (70-99) mg/dL POC Glucose 127 H 115 H (70-99) mg/dL Calcium (8.5-10.1) mg/dL Total Bilirubin (0.2-1.0) mg/dL Direct Bilirubin (0.0-0.2) mg/dl Indirect Bilirubin AST (15-37) U/L ALT (14-59) U/L Alkaline Phosphatase (46-116) U/L Total Protein (6.4-8.2) g/dl Albumin (3.4-5.0) g/dl Globulin gm/dL Albumin/Globulin Ratio (1-2) Result Diagrams: 01/25/21 06:05 01/25/21 06:05 Imaging Impressions Last 24 hrs: MRI showing no evidence of osteomyelitis however; 2cm abscess noted inferior nasal region Sepsis Event Note - Evaluation Sepsis Screening Result: No Definite Risk - Focused Exam Vital Signs: Vital Signs Temp Temp Pulse Pulse Resp BP BP 01/25/21 08:35 98.1 F 72 16 153/75 H 01/25/21 08:10 62 155/81 H 01/25/21 08:00 98.0 F 72 16 153/75 H 01/25/21 06:45 97.9 F 62 14 155/81 H Pulse Ox 01/25/21 08:35 97 01/25/21 08:10 01/25/21 08:00 97 01/25/21 06:45 96 - Problem List Review Problem List Initiated/Reviewed/Updated: Yes - My Orders Last 24 Hours: My Active Orders 01/25/21 16:05 PICC Line Placement NC [CR] Routine 01/25/21 16:39 PICC Line Placement NC [CR] Routine 01/26/21 06:00 BASIC METABOLIC PANEL,BMP [CHEM] DAILY CBC WITH AUTO DIFF [HEME] DAILY HEPATIC FUNCTION PANEL,HFP [CHEM] DAILY - Plan Plan:: Assessment: This is a 65F with PMhx of arthritis presenting with suspected odo ntogenic infection and suspected acetaminophen toxicity. She underwent CT neck and face which showed CT neck and soft tissue showing diffuse soft tissue thickening starting at the level of the mandible and extending superiorly to involve portions of the periorbital soft tissue on the left side with minimal density seen within the lower left frontal scap. 1.5cm soft tissue finding within the lower left neck which does not have fluid measurement and does not represent a drainable abscess. This finding does put the patient at risk for future abscess. Small cortical abnormality within the anterior oral left mandible possible due to minimal area of osteomyelitis; no definite dental abscess is seen. She was started on antibiotic therapy for osteomyelitis of jaw 1. odontogenic infection/Dental caries 2. Suspected acetaminophen toxicity 3. Morbid obesity 4. Anion gap metabolic acidosis 5. Transaminitis 6. Mild Thrombocytopenia 7. Metabolic encephalopathy; resolved 8. presumed osteomyelitis of Jaw->CT neck and soft tissue showing diffuse soft tissue thickening starting at the level of the mandible and extending superiorly to involve portions of the periorbital soft tissue on the left side with minimal density seen within the lower left frontal scap. 1.5cm soft tissue finding within the lower left neck which does not have fluid measurement and does not represent a drainable abscess. This finding does put the patient at risk for future abscess. Small cortical abnormality within the anterior oral left mandible possible due to minimal area of osteomyelitis; no definite dental abscess is seen MRI 01/25 showing MRI showing no evidence of osteomyelitis however; 2cm abscess noted inferior nasal region 9. Type II DM a1c 7.3; Hyperlycemia Plan -completed mucomyst protocol -serial tylenol levels completed -serial LFTS -daily INR -IVF discontinued -repeat BMP in AM -discontinue tylenol -continue unasyn +vancomycin -outpatient dentistry referral -start metformin will need outpatient follow up; lipid check; eye/retina exam, and other diabetes associated preventative care case and imaging discussed with [facility] surgery service no indication for surgery; no indication for bone biopsy or transfer to tertiary center Case discussed with [facility]; recommendations; -no indication for emergent transfer to tertiary center -outpatient antibiotic therapy for 6 weeks -Daptomycin; daily -Ertapenem; daily -weekly CBC, BMP, CK. LFTs Case discussed again with ID today 02/25; continue antibiotics as noted above but decrease to 4 weeks from 6 weeks Discharge cancelled today as patient developed bleeding at PICC line site; will keep overnight; patient stay is greater than 96 hours due to IV antibiotic treatment for osteomeyelitis of jaw Code-Full; presumed
[2021-01-25] MEDS: oxyCODONE 5 MG Tab PO PRN (19:25)
[2021-01-25] MEDS: HYDROmorphone 0.5 MG/0.5 ML Syringe IVPUSH PRN (22:13)
[2021-01-26] MEDS: Ampicillin/Sulbactam Na 3 GM in Sodium Chloride 0.9% 100 ML IV SCH ×3 (01:56→15:19)
[2021-01-26] MEDS: Vancomycin 1.75 GM in Sodium Chloride 0.9% 500 ML IV SCH ×2 (02:35→12:59)
[2021-01-26] MEDS: metFORMIN 500 MG Tab PO SCH (06:30)
[2021-01-26] MEDS: Insulin Lispro 100 UNIT/ML 10 ML Vial SUBCUT SCH ×2 (06:31→11:53)
[2021-01-26] MEDS: Carvedilol 12.5 MG Tab PO SCH (08:26)
[2021-01-26] MEDS: Pantoprazole 40 MG Tab.CR PO SCH (08:26)
[2021-01-26] MEDS: Venlafaxine 75 MG Cap.ER PO SCH (08:30)
[2021-01-26] MEDS: Anastrozole 1 MG Tab PO SCH (08:30)
--- NOTE | 2021-01-26 09:33 | CR ---
Chest: Portable supine view of the chest was obtained. Comparison: No prior chest imaging is available. Right hilum appears prominent in size. Left shoulder prosthesis is noted. PICC line is seen on the right side which terminates at the junction of the superior vena cava and atrium. Old rib fractures are noted on the right side. No acute parenchymal change is seen within the visualized lungs. Heart is mildly enlarged. Impression: 1. PICC line at the superior vena cava and right atrial junction. 2. Fullness of the right hilum, adenopathy or mass cannot be excluded, noncontrast chest CT is recommended which can be performed as a non-emergent study. Diagnostic code #3 I agree with preliminary report from [facility], finalized on 01/25/21, 5:53 PM CDT
--- NOTE | 2021-01-26 09:34 | CR ---
Chest: Portable supine view of the chest was obtained. Comparison: Prior chest x-ray performed earlier on the same day (4:17 PM). Heart is slightly enlarged. Upper mediastinum is normal. Old right-sided rib fracture is seen. Left shoulder prosthesis is seen. Right-sided PICC line is seen which has been slightly withdrawn. Tip lies within the proximal superior vena cava in satisfactory position. Lungs are clear. Mildly prominent right hilum is seen for which CT has been recommended. Impression: 1. Satisfactory position of PICC line. 2. Chest CT recommended as previously described. 3. Other findings which are nonacute and old. Diagnostic code #3 I agree with preliminary report from [facility], finalized on 01/25/21, 5:55 PM CDT
--- NOTE | 2021-01-26 10:23 | PCM.PRNOTE ---
- Free Text/Narrative Note: PICC line shortening and adapter change Per patient request: the loop of the PICC line has been shortened to 45 cm at the skin, cut to 49 cm at the hub. The position of the StatLock has been moved to the right forearm. Area cleaned thoroughly with chloraprep and the dressing changed in sterile fashion. Hub cap changed and the catheter has been flushed multiple times and the blood return confirmed at all times. Patient tolerated the procedure well. Times : 09:15-09:30
--- NOTE | 2021-01-26 13:07 | PCM.DCSUM1 ---
Discharge Summary - Hospital Course HPI Initial Comments: This is a 65F with PMHx noted below including hx of arthritis presenting for evaluation of tooth pain. The patient is a poor historian. Hx limited by encephalopathy. The patient states she recently moved from [facility]. She has been having worsening tooth pain upper left molars. She has not been evaluated by dentist. For pain control she has been taking large doses of tylenol every few hours. She presented to ED where her tylenol levels where ch ecked and noted to be 7. Given concern for acetaminophen toxicity she was started on mucomyst. Her AST and ALT 714, 314. INR WNL. she was started on unasyn and admitted for further evaluation. HOSPITAL COURSE Assessment: This is a 65F with PMhx of arthritis presenting with suspected odontogenic infection and suspected acetaminophen toxicity. She underwent CT neck and face which showed CT neck and soft tissue showing diffuse soft tissue thickening starting at the level of the mandible and extending superiorly to involve portions of the periorbital soft tissue on the left side with minimal de nsity seen within the lower left frontal scap. 1.5cm soft tissue finding within the lower left neck which does not have fluid measurement and does not represent a drainable abscess. This finding does put the patient at risk for future abscess. Small cortical abnormality within the anterior oral left mandible possible due to minimal area of osteomyelitis; no definite dental abscess is seen. She was started on antibiotic therapy for osteomyelitis of jaw 1. odontogenic infection/Dental caries 2. Suspected acetaminophen toxicity 3. Morbid obesity 4. Anion gap metabolic acidosis 5. Transaminitis 6. Mild Thrombocytopenia 7. Metabolic encephalopathy; resolved 8. odontogenic abscess; 2cm abscess noted inferior nasal region->CT neck and soft tissue showing diffuse soft tissue thickening starting at the level of the mandible and extending superiorly to involve portions of the periorbital soft tissue on the left side with minimal density seen within the lower left frontal scap. 1.5cm soft tissue finding within the lower left neck which does not have fluid measurement and does not represent a drainable abscess. This finding does put the patient at risk for future abscess. Small cortical abnormality within the anterior oral left mandible possible due to minimal area of osteomyelitis; no definite dental abscess is seen MRI 01/25 showing MRI showing no evidence of osteomyelitis however; 2cm abscess noted inferior nasal region 9. Type II DM a1c 7.3; Hyperlycemia Plan -completed mucomyst protocol -serial tylenol levels completed -serial LFTS with improving LFTS -daily INR completed -discontinue tylenol -continued on unasyn +vancomycin -outpatient dentistry referral -outpatient Infectious disease referral -close outpatient PCP follow up -start metformin will need outpatient follow up; lipid check; eye/retina exam, and other diabetes associated preventative care case and imaging discussed with [facility] surgery service no indication for surgery; no indication for bone biopsy or transfer to tertiary center Case discussed with [facility]; recommendations; -no indication for emergent transfer to tertiary center -outpatient antibiotic therapy for 6 weeks -Daptomycin; daily -Ertapenem; daily -weekly CBC, BMP, CK. LFTs (Will need to be followed up by PCP) Case discussed again with ID given new MRI results02/25; continue antibiotics as noted above but decrease to 4 weeks from 6 weeks PROCEDURES PICC Line placement for IV antibiotic therapy on 01/25/21 Diagnosis: Stroke: No - Discharge Data Discharge Date: 01/26/21 Discharge Disposition: Home, Self-Care 01 Condition: Good - Referral to Home Health Primary Care Physician: Rachael Nunez MD - Patient Summary/Data Consults: Consultations 01/21/21 14:43 Consult to Case Management/Bag Making Machine Tender [CONS] Routine - Patient Instructions Diet: Limited Carb (Diabetic Diet) Activity: As Tolerated Notify Provider of: Fever, Increased Pain, Swelling and Redness, Drainage, Nausea and/or Vomiting - Discharge Plan *PRESCRIPTION DRUG MONITORING PROGRAM REVIEWED*: Not Applicable *COPY OF PRESCRIPTION DRUG MONITORING REPORT IN PATIENT DIONICIO: Not Applicable Prescriptions/Med Rec: oxyCODONE 2.5 mg PO Q6H PRN #15 tab PRN Reason: Pain (Severe 7-10) Home Medications: Home Meds Anastrozole [Arimidex] 1 mg PO DAILY 01/21/21 [History] Omeprazole 20 mg PO DAILY 01/21/21 [History] Rizatriptan Benzoate [Rizatriptan] 10 mg PO ASDIRECTED PRN 01/21/21 [History] Venlafaxine HCl [Venlafaxine ER] 225 mg PO DAILY 01/21/21 [History] carvediloL [Carvedilol] 25 mg PO BID 01/21/21 [History] oxyCODONE 2.5 mg PO Q6H PRN #15 tab 01/25/21 [Rx] Oxygen Therapy Mode: Room Air Patient Handouts: Acetaminophen tablets or caplets, PICC Home Care Guide Referrals: Rachael Nunez MD [Primary Care Provider] - 01/29/21 12:45 pm (Establish care appt. and also follow up from hospital discharge) Chelsi Saldivar MD [Ordering Only Provider] - 02/20/21 10:00 am (This is the infectious disease doctor. Please arrive 9:45 Central time. New Address is: [facility] [address] [place], [place] [address] [address] Phone # is [phone] ) - Discharge Summary/Plan Comment DC Time >30 min.: Yes (45 minutes) Total # of Minutes for Discharge Time: 45 minutes - General Info Functional Status: Reports: Pain Controlled - Review of Systems General: Reports: No Symptoms HEENT: Reports: No Symptoms Pulmonary: Reports: No Symptoms Cardiovascular: Reports: No Symptoms Gastrointestinal: Reports: No Symptoms Musculoskeletal: Reports: No Symptoms Skin: Reports: No Symptoms Neurological: Reports: No Symptoms - Patient Data Vitals - Most Recent: Last Vital Signs Temp 97.9 F 01/26/21 12:19 Pulse 74 01/26/21 12:10 Resp 16 01/26/21 12:10 BP 162/89 H 01/26/21 08:26 Pulse Ox 94 L 01/26/21 12:10 Weight - Most Recent: 257 lb 6.4 oz I&O - Last 24 hours: Intake & Output 01/25/21 01/26/21 01/26/21 22:59 06:59 14:59 Intake Total 1300 917 240 Output Total 1800 1200 Balance -500 -283 240 Lab Results - Last 24 hrs: Laboratory Results - last 24 hr 01/25/21 01/25/21 01/25/21 Range/Units 12:50 18:23 22:02 WBC (3.98-10.04) K/mm3 RBC (3.98-5.22) M/mm3 Hgb (11.2-15.7) gm/dl Hct (34.1-44.9) % MCV (79.4-94.8) fl MCH (25.6-32.2) pg MCHC (32.2-35.5) g/dl RDW Std Deviation (36.4-46.3) fL Plt Count (182-369) K/mm3 MPV (9.4-12.3) fl Neut % (Auto) (34.0-71.1) % Lymph % (Auto) (19.3-51.7) % [place] % (Auto) (4.7-12.5) % Eos % (Auto) (0.7-5.8) Baso % (Auto) (0.1-1.2) % Neut # (Auto) (1.56-6.13) K/mm3 Lymph # (Auto) (1.18-3.74) K/mm3 [place] # (Auto) (0.24-0.36) K/mm3 Eos # (Auto) (0.04-0.36) K/mm3 Baso # (Auto) (0.01-0.08) K/mm3 Sodium (136-145) mEq/L Potassium (3.5-5.1) mEq/L Chloride (98-107) mEq/L Carbon Dioxide (21-32) mEq/L Anion Gap (5-15) BUN (7-18) mg/dL Creatinine (0.55-1.02) mg/dL Est Cr Clr Drug Dosing mL/min Estimated GFR (MDRD) (>60) mL/min BUN/Creatinine Ratio (14-18) Glucose (70-99) mg/dL POC Glucose 115 H 182 H 172 H (70-99) mg/dL Calcium (8.5-10.1) mg/dL Total Bilirubin (0.2-1.0) mg/dL Direct Bilirubin (0.0-0.2) mg/dl Indirect Bilirubin AST (15-37) U/L ALT (14-59) U/L Alkaline Phosphatase (46-116) U/L Total Protein (6.4-8.2) g/dl Albumin (3.4-5.0) g/dl Globulin gm/dL Albumin/Globulin Ratio (1-2) 01/26/21 01/26/21 01/26/21 Range/Units 06:29 06:54 06:54 WBC 4.68 (3.98-10.04) K/mm3 RBC 3.63 L (3.98-5.22) M/mm3 Hgb 11.0 L (11.2-15.7) gm/dl Hct 34.9 (34.1-44.9) % MCV 96.1 H (79.4-94.8) fl MCH 30.3 (25.6-32.2) pg MCHC 31.5 L (32.2-35.5) g/dl RDW Std Deviation 49.8 H (36.4-46.3) fL Plt Count 158 L (182-369) K/mm3 MPV 8.9 L (9.4-12.3) fl Neut % (Auto) 63.9 (34.0-71.1) % Lymph % (Auto) 21.8 (19.3-51.7) % [place] % (Auto) 9.2 (4.7-12.5) % Eos % (Auto) 3.0 (0.7-5.8) Baso % (Auto) 0.2 (0.1-1.2) % Neut # (Auto) 2.99 (1.56-6.13) K/mm3 Lymph # (Auto) 1.02 L (1.18-3.74) K/mm3 [place] # (Auto) 0.43 H (0.24-0.36) K/mm3 Eos # (Auto) 0.14 (0.04-0.36) K/mm3 Baso # (Auto) 0.01 (0.01-0.08) K/mm3 Sodium 141 (136-145) mEq/L Potassium 4.8 (3.5-5.1) mEq/L Chloride 105 (98-107) mEq/L Carbon Dioxide 30 (21-32) mEq/L Anion Gap 10.8 (5-15) BUN 18 (7-18) mg/dL Creatinine 0.7 (0.55-1.02) mg/dL Est Cr Clr Drug Dosing 56.02 mL/min Estimated GFR (MDRD) > 60 (>60) mL/min BUN/Creatinine Ratio 25.7 H (14-18) Glucose 152 H (70-99) mg/dL POC Glucose 136 H (70-99) mg/dL Calcium 8.6 (8.5-10.1) mg/dL Total Bilirubin 0.3 (0.2-1.0) mg/dL Direct Bilirubin 0.10 (0.0-0.2) mg/dl Indirect Bilirubin 0.20 AST 20 (15-37) U/L ALT 56 (14-59) U/L Alkaline Phosphatase 42 L (46-116) U/L Total Protein 5.9 L (6.4-8.2) g/dl Albumin 2.8 L (3.4-5.0) g/dl Globulin 3.1 gm/dL Albumin/Globulin Ratio 0.9 L (1-2) 01/26/ Range/Units 11:12 WBC (3.98-10.04) K/mm3 RBC (3.98-5.22) M/mm3 Hgb (11.2-15.7) gm/dl Hct (34.1-44.9) % MCV (79.4-94.8) fl MCH (25.6-32.2) pg MCHC (32.2-35.5) g/dl RDW Std Deviation (36.4-46.3) fL Plt Count (182-369) K/mm3 MPV (9.4-12.3) fl Neut % (Auto) (34.0-71.1) % Lymph % (Auto) (19.3-51.7) % [place] % (Auto) (4.7-12.5) % Eos % (Auto) (0.7-5.8) Baso % (Auto) (0.1-1.2) % Neut # (Auto) (1.56-6.13) K/mm3 Lymph # (Auto) (1.18-3.74) K/mm3 [place] # (Auto) (0.24-0.36) K/mm3 Eos # (Auto) (0.04-0.36) K/mm3 Baso # (Auto) (0.01-0.08) K/mm3 Sodium (136-145) mEq/L Potassium (3.5-5.1) mEq/L Chloride (98-107) mEq/L Carbon Dioxide (21-32) mEq/L Anion Gap (5-15) BUN (7-18) mg/dL Creatinine (0.55-1.02) mg/dL Est Cr Clr Drug Dosing mL/min Estimated GFR (MDRD) (>60) mL/min BUN/Creatinine Ratio (14-18) Glucose (70-99) mg/dL POC Glucose 189 H (70-99) mg/dL Calcium (8.5-10.1) mg/dL Total Bilirubin (0.2-1.0) mg/dL Direct Bilirubin (0.0-0.2) mg/dl Indirect Bilirubin AST (15-37) U/L ALT (14-59) U/L Alkaline Phosphatase (46-116) U/L Total Protein (6.4-8.2) g/dl Albumin (3.4-5.0) g/dl Globulin gm/dL Albumin/Globulin Ratio (1-2) Med Orders - Current: Current Medications Anastrozole (Anastrozole 1 Mg Tab) 1 mg PO DAILY [facility] Last Admin: 01/26/21 08:30 Dose: 1 mg Documented by: Carvedilol (Carvedilol 12.5 Mg Tab) 25 mg PO BID [facility] Last Admin: 01/26/21 08:26 Dose: 25 mg Documented by: Hydromorphone HCl (Hydromorphone 0.5 Mg/0.5 Ml Syringe) 0.5 mg IVPUSH Q1H PRN PRN Reason: Pain (severe 7-10) Last Admin: 01/25/21 22:13 Dose: 0.5 mg Documented by: Vancomycin HCl 1.75 gm/ Sodium (Chloride) 500 mls @ 250 mls/hr IV Q12H [facility] Last Admin: 01/26/21 12:59 Dose: 250 mls/hr Documented by: Ampicillin Sodium/Sulbactam (Sodium 3 gm/ Sodium Chloride) 100 mls @ 200 mls/hr IV Q6H [facility] Last Admin: 01/26/21 08:25 Dose: 200 mls/hr Documented by: Insulin Human Lispro (Insulin Lispro 100 Unit/Ml 10 Ml Vial) 0 unit SUBCUT QIDACANDBED [facility]; Protocol Last Admin: 01/26/21 11:53 Dose: 2 units Documented by: Metformin HCl (Metformin 500 Mg Tab) 500 mg PO BIDMEALS [facility] Last Admin: 01/26/21 06:30 Dose: 500 mg Documented by: Ondansetron HCl (Ondansetron 4 Mg/2 Ml Sdv) 4 mg IVPUSH Q4HR PRN PRN Reason: Nausea Last Admin: 01/21/21 21:45 Dose: 4 mg Documented by: Oxycodone HCl (Oxycodone 5 Mg Tab) 5 mg PO Q4H PRN PRN Reason: Pain (moderate 4-6) Last Admin: 01/24/21 18:54 Dose: 5 mg Documented by: Oxycodone HCl (Oxycodone 5 Mg Tab) 10 mg PO Q4H PRN PRN Reason: Pain (severe 7-10) Last Admin: 01/25/21 19:25 Dose: 10 mg Documented by: Pantoprazole Sodium (Pantoprazole 40 Mg Tab.Cr) 40 mg PO DAILY [facility] Last Admin: 01/26/21 08:26 Dose: 40 mg Documented by: Vancomycin HCl (Pharmacy To Dose - Vancomycin) 0 dose .XX ASDIRECTED PRN PRN Reason: RX TO DOSE VANCOMYCIN Venlafaxine HCl (Venlafaxine 75 Mg Cap.Er) 225 mg PO DAILY [facility] Last Admin: 01/26/21 08:30 Dose: 225 mg Documented by: Discontinued Medications Dexamethasone (Dexamethasone 4 Mg/Ml Sdv) 4 mg IVPUSH Q6H [facility] Last Admin: 01/23/21 04:24 Dose: 4 mg Documented by: Fentanyl (Fentanyl 100 Mcg/2 Ml Sdv) 50 mcg IVPUSH ONETIME ONE Stop: 01/21/21 13:15 Last Admin: 01/21/21 13:25 Dose: 50 mcg Documented by: Gadobenate Dimeglumine (Gadobenate Dimeglumine 529 Mg/Ml 20 Ml Sdv) 20 ml IVPUSH ONETIME ONE Stop: 01/25/21 11:55 Last Admin: 01/25/21 12:28 Dose: 20 ml Documented by: Heparin Sodium (Porcine) (Heparin Sodium 5,000 Units/Ml Vial) 5,000 units SUBCUT Q8H [facility] Last Admin: 01/25/21 13:57 Dose: 5,000 units Documented by: Hydromorphone HCl (Hydromorphone 0.5 Mg/0.5 Ml Syringe) 0.5 mg IVPUSH ONETIME ONE Stop: 01/21/21 14:25 Last Admin: 01/21/21 14:28 Dose: 0.5 mg Documented by: Acetylcysteine 14,600 mg/ (Dextrose/Water) 273 mls @ 273 mls/hr IV ONETIME ONE Stop: 01/21/21 13:59 Last Admin: 01/21/21 13:25 Dose: 273 mls/hr Documented by: Acetylcysteine 4,900 mg/ (Dextrose/Water) 524.5 mls @ 131.125 mls/hr IV ONETIME ONE Stop: 01/21/21 17:59 Last Admin: 01/21/21 14:28 Dose: 131.125 mls/hr Documented by: Acetylcysteine 9,800 mg/ (Dextrose/Water) 1,049 mls @ 65.563 mls/hr IV ONETIME ONE Stop: 01/22/21 09:59 Last Infusion: 01/22/21 07:30 Dose: 65 mls/hr Documented by: Ampicillin Sodium/Sulbactam (Sodium 3 gm/ Sodium Chloride) 100 mls @ 200 mls/hr IV Q6H [facility] Last Admin: 01/21/21 18:53 Dose: Not Given Documented by: Ampicillin Sodium/Sulbactam (Sodium 3 gm/ Sodium Chloride) 100 mls @ 200 mls/hr IV Q6H [facility] Last Admin: 01/25/21 20:19 Dose: Not Given Documented by: Vancomycin HCl 1 gm/Vancomycin HCl 500 mg/ Sodium Chloride 500 mls @ 250 mls/hr IV ONETIME ONE Stop: 01/22/21 14:59 Last Admin: 01/22/21 12:45 Dose: 250 mls/hr Documented by: Vancomycin HCl 1 gm/ Sodium (Chloride) 250 mls @ 250 mls/hr IV Q12H [facility] Last Admin: 01/24/21 01:04 Dose: 250 mls/hr Documented by: Insulin Glargine (Insulin Glarg,Human.Rec.Analog 100 Unit/Ml) 4 unit SUBCUT BEDTIME [facility] Last Admin: 01/23/21 21:28 Dose: 4 units Documented by: Iopamidol (Iopamidol 612 Mg/Ml 100 Ml Bottle) 100 ml IVPUSH ONETIME ONE Stop: 01/22/21 08:10 Last Admin: 01/22/21 08:22 Dose: 80 ml Documented by: Magnesium Hydroxide (Magnesium Hydroxide 400 Mg/5 Ml Susp 30 Ml Cup) 30 ml PO ONETIME ONE Stop: 01/23/21 10:07 Last Admin: 01/23/21 12:03 Dose: 30 ml Documented by: Ondansetron HCl (Ondansetron 4 Mg/2 Ml Sdv) 4 mg IVPUSH ONETIME ONE Stop: 01/21/21 13:22 Last Admin: 01/21/21 13:24 Dose: 4 mg Documented by: Pantoprazole Sodium (Pantoprazole 40 Mg Vial) 40 mg IVPUSH DAILY [facility] Last Admin: 01/23/21 09:12 Dose: 40 mg Documented by: Pantoprazole Sodium (Pantoprazole 40 Mg Tab.Cr) 40 mg PO DAILY [facility] Sodium Chloride (Sodium Chloride 0.9% 10 Ml Syringe) 10 ml FLUSH ONETIME ONE Stop: 01/22/21 08:10 Last Admin: 01/22/21 08:22 Dose: 10 ml Documented by: Sodium Chloride (Sodium Chloride 0.9% 10 Ml Syringe) 20 ml FLUSH ASDIRECTED [facility] Stop: 01/25/21 15:00 Last Admin: 01/25/21 12:28 Dose: 20 ml Documented by: - Exam General: Reports: Alert, Oriented HEENT: Reports: EOMI, Mucous Membr. Moist/[place] Neck: Reports: Supple Lungs: Reports: Clear to Auscultation, Normal Respiratory Effort Cardiovascular: Reports: Regular Rate, Regular Rhythm GI/Abdominal Exam: Soft, Non-Tender, No Distention Back Exam: Reports: Normal Inspection Extremities: Normal Inspection Skin: Reports: Warm, Dry, Intact Neurological: Reports: No New Focal Deficit Psy/Mental Status: Reports: Alert, Normal Affect *Q Meaningful Use (DIS) - VTE *Q VTE Criteria *Q: 1
[2021-01-26] MEDS: oxyCODONE 5 MG Tab PO PRN (14:19)
== END 2021-01-26 16:32 | disposition home or self-care (01) | DRG 157 ==
LOC: JD.ED 10:10 → JD.OB 14:43 → JD.MS 01-22 10:10
PROVIDERS: ADMIT Hospitalist; ATTEND Hospitalist
PROC: 02HV33Z Insertion of Infusion Device into Superior Vena Cava, Percutaneous Approach (ICD-10-PCS; principal; 2021-01-25)
DX: K02.9 Dental caries, unspecified (principal); G93.41 Metabolic encephalopathy; E87.2 Acidosis; K04.7 Periapical abscess without sinus; T39.1X5A Adverse effect of 4-Aminophenol derivatives, initial encounter; E66.01 Morbid (severe) obesity due to excess calories; E11.65 Type 2 diabetes mellitus with hyperglycemia; T39.1X1A Poisoning by 4-Aminophenol derivatives, accidental (unintentional), initial encounter; D69.6 Thrombocytopenia, unspecified; Z68.29 Body mass index [BMI] 29.0-29.9, adult; Y92.89 Other specified places as the place of occurrence of the external cause; K08.89 Other specified disorders of teeth and supporting structures; R47.9 Unspecified speech disturbances; M19.90 Unspecified osteoarthritis, unspecified site; Z88.2 Allergy status to sulfonamides; Z88.8 Allergy status to other drugs, medicaments and biological substances; Z20.822 Contact with and (suspected) exposure to COVID-19
CPT/HCPCS: 36415; 70450; 80053; 80143 ×2; 80179; 80306; 80307; 81001; 83735; 84484; 85025; 85610; 93005; 96365; 96366; 96375; 99284; J0132 ×2; J1170; J2405; J3010; J7060 ×2; U0002; 36569; 70491; 70491-26; 70543; 70543-26; 76700; 76700-26; 80048; 80076; 80202; 82947; 83036; 87040; 99222; 99231; 99239; A9270-GY; A9577; C1751; C9113; J0295; J1100; J1644; J1815-GY; J3370; J7040; J7050; Q9967

== ENCOUNTER 2023-04-26 14:34 | Emergency (ER) | payer MEDICARE, OTHER ==
[2023-04-26 15:12] LABS: BASOPHILS PERCENT AUTO 0.7 % (0.0-1.0); EOSINOPHILS ABSOLUTE AUTO 0.2 K/mm3 (0.0-0.4); EOSINOPHILS PERCENT AUTO 4.6 % (0.0-6.0); HEMATOCRIT 38.8 % (37.0-47.0); HEMOGLOBIN 11.6 gm/dl (12.0-16.0); IMMATURE GRAN ABSOLUTE AUTO 0.02 K/mm3 (0.00-0.05); IMMATURE GRAN PERCENT AUTO 0.5 % (0.0-0.4); LYMPHOCYTES ABSOLUTE AUTO 0.8 K/mm3 (1.0-4.8); LYMPHOCYTES PERCENT AUTO 19.1 % (24.0-44.0); MEAN CORPUSCULAR HEMOGLOBIN 26.5 pg (28.0-32.0); MEAN CORPUSCULAR HGB CONC 29.9 g/dl (32.0-36.0); MEAN CORPUSCULAR VOLUME 88.8 fl (83.0-99.0); MEAN PLATELET VOLUME 8.8 fl (9.4-12.3); MONOCYTES ABSOLUTE AUTO 0.2 K/mm3 (0.0-0.8); MONOCYTES PERCENT AUTO 4.3 % (0.0-8.0); NEUTROPHILS ABSOLUTE AUTO 3.1 K/mm3 (1.8-7.7); NEUTROPHILS PERCENT AUTO 70.8 % (41.0-71.0); PLATELET COUNT,PLT 189 K/mm3 (150-400); RED BLOOD CELL COUNT 4.37 M/mm3 (4.10-5.30); WHITE BLOOD CELL COUNT,WBC 4.39 K/mm3 (3.9-11.3)
[2023-04-26 15:27] LABS: PROTHROMBIN TIME 10.7 SECONDS (9.7-12.0)
[2023-04-26 15:29] LABS: A/G RATIO 1.1 (1-2); ALBUMIN 3.5 g/dl (3.4-5.0); ANION GAP 17.1 (5-15); BILIRUBIN TOTAL 0.2 mg/dL (0.2-1.0); BUN/CREATININE RATIO 31.7 (14-18); CALCIUM 9.1 mg/dL (8.5-10.1); CREATININE 0.6 mg/dL (0.55-1.02); EST CRCL DRUG DOSING (CG) 63.56 mL/min; MAGNESIUM 1.6 mg/dL (1.8-2.4); POTASSIUM,K 5.1 mEq/L (3.5-5.1); PROTEIN TOTAL,TP 6.7 g/dl (6.4-8.2)
[2023-04-26 16:57] LABS: BARBITURATE SCREEN,URINE NEGATIVE (CUTOFF=200); BENZODIAZEPINES SCREEN,URINE NEGATIVE (CUTOFF=150); BUPRENORPHINE SCREEN,URINE NEGATIVE (CUTOFF=10); METHADONE SCREEN, URINE NEGATIVE (CUTOFF=200); METHAMPHETAMINES SCREEN, URINE NEGATIVE (CUTOFF=500); OXYCODONE SCREEN,URINE NEGATIVE (CUT0FF=100); THC SCREEN,URINE 20 NG/ML NEGATIVE (CUTOFF=50)
[2023-04-26 17:06] LABS: AMPHETAMINES SCREEN, URINE NEGATIVE (CUTOFF=500)
[2023-04-26] MEDS ORDERED: Lisinopril 10 MG Tab PO ONE (18:24)
[2023-04-26] MEDS ORDERED: Amoxicillin/Clavulanate K 875-125 MG Tab PO ONE (19:04)
[2023-04-26 19:29] LABS: A/G RATIO 1.2 (1-2); ALBUMIN 3.6 g/dl (3.4-5.0); BILIRUBIN TOTAL 0.2 mg/dL (0.2-1.0); BUN/CREATININE RATIO 26.7 (14-18); CREATININE 0.6 mg/dL (0.55-1.02); EST CRCL DRUG DOSING (CG) 63.56 mL/min; PROTEIN TOTAL,TP 6.6 g/dl (6.4-8.2)
== END 2023-04-26 20:20 | disposition home or self-care (01) ==
LOC: JD.ED 14:34
DX: T39.1X1A Poisoning by 4-Aminophenol derivatives, accidental (unintentional), initial encounter (principal); K04.7 Periapical abscess without sinus; I10 Essential (primary) hypertension; E11.9 Type 2 diabetes mellitus without complications; Z79.899 Other long term (current) drug therapy; Z88.6 Allergy status to analgesic agent; Z88.8 Allergy status to other drugs, medicaments and biological substances; Z88.2 Allergy status to sulfonamides
CPT/HCPCS: 36415; 80053; 80143; 80179; 80306; 80307; 83735; 85025; 85610; 99283; A9270

== ENCOUNTER 2024-01-25 16:44 | Emergency (ER) | payer MEDICARE, OTHER ==
[2024-01-25] MEDS ORDERED: Sodium Chloride 0.9% 10 ML Syringe FLUSH PRN (17:11)
[2024-01-25 18:02] LABS: BASOPHILS PERCENT AUTO 0.5 % (0.0-1.0); EOSINOPHILS ABSOLUTE AUTO 0.4 K/mm3 (0.0-0.4); EOSINOPHILS PERCENT AUTO 5.4 % (0.0-6.0); HEMATOCRIT 41.7 % (37.0-47.0); HEMOGLOBIN 13.3 gm/dl (12.0-16.0); IMMATURE GRAN ABSOLUTE AUTO 0.03 K/mm3 (0.00-0.05); IMMATURE GRAN PERCENT AUTO 0.4 % (0.0-0.4); LYMPHOCYTES ABSOLUTE AUTO 1.1 K/mm3 (1.0-4.8); LYMPHOCYTES PERCENT AUTO 14.4 % (24.0-44.0); MEAN CORPUSCULAR HEMOGLOBIN 29.6 pg (28.0-32.0); MEAN CORPUSCULAR HGB CONC 31.9 g/dl (32.0-36.0); MEAN CORPUSCULAR VOLUME 92.7 fl (83.0-99.0); MEAN PLATELET VOLUME 9.1 fl (9.4-12.3); MONOCYTES ABSOLUTE AUTO 0.3 K/mm3 (0.0-0.8); MONOCYTES PERCENT AUTO 3.9 % (0.0-8.0); NEUTROPHILS ABSOLUTE AUTO 5.6 K/mm3 (1.8-7.7); NEUTROPHILS PERCENT AUTO 75.4 % (41.0-71.0); PLATELET COUNT,PLT 208 K/mm3 (150-400); WHITE BLOOD CELL COUNT,WBC 7.41 K/mm3 (3.9-11.3)
[2024-01-25 18:33] LABS: A/G RATIO 1.1 (1-2); ALBUMIN 3.8 g/dl (3.4-5.0); ANION GAP 15.2 (5-15); BILIRUBIN TOTAL 0.3 mg/dL (0.2-1.0); BUN/CREATININE RATIO 22.9 (14-18); CALCIUM 9.2 mg/dL (8.5-10.1); CREATININE 0.7 mg/dL (0.55-1.02); EST CRCL DRUG DOSING (CG) 56.43 mL/min; POTASSIUM,K 4.2 mEq/L (3.5-5.1); PROTEIN TOTAL,TP 7.3 g/dl (6.4-8.2)
[2024-01-25] MEDS ORDERED: predniSONE 10 MG Tab PO ONE (19:06)
== END 2024-01-25 19:33 | disposition home or self-care (01) ==
LOC: JD.ED 16:44
DX: S20.219A Contusion of unspecified front wall of thorax, initial encounter (principal); I10 Essential (primary) hypertension; E11.9 Type 2 diabetes mellitus without complications; Z79.84 Long term (current) use of oral hypoglycemic drugs; Z79.899 Other long term (current) drug therapy; Z88.2 Allergy status to sulfonamides; Z88.8 Allergy status to other drugs, medicaments and biological substances; W18.40XA Slipping, tripping and stumbling without falling, unspecified, initial encounter
CPT/HCPCS: 36415; 71111; 71111-26; 80053; 84484; 85025; 93005; 93010; 99283; 99285

== ENCOUNTER 2024-11-07 15:31 | Emergency (ER) | payer MEDICARE, OTHER ==
[2024-11-07] MEDS: Cephalexin 500 MG Cap PO ONE (19:05)
== END 2024-11-07 19:20 | disposition home or self-care (01) ==
LOC: JD.ED 15:31
DX: S99.202A Unspecified physeal fracture of phalanx of left toe, initial encounter for closed fracture (principal); S80.12XA Contusion of left lower leg, initial encounter; S49.92XA Unspecified injury of left shoulder and upper arm, initial encounter; I10 Essential (primary) hypertension; E11.9 Type 2 diabetes mellitus without complications; Z88.2 Allergy status to sulfonamides; Z88.8 Allergy status to other drugs, medicaments and biological substances; Z79.84 Long term (current) use of oral hypoglycemic drugs; Z79.899 Other long term (current) drug therapy; W13.3XXA Fall through floor, initial encounter
CPT/HCPCS: 73030; 73562; 73590; 73630; 99283; A9270

== ENCOUNTER 2025-04-02 18:18 | Emergency (ER) | payer MEDICARE ==
[2025-04-02] MEDS ORDERED: Naloxone 0.4 MG/ML SDV IVPUSH PRN (18:42)
== END 2025-04-02 20:41 | disposition home or self-care (01) ==
LOC: JD.ED 18:18
DX: S02.32XB Fracture of orbital floor, left side, initial encounter for open fracture (principal); I10 Essential (primary) hypertension; E11.9 Type 2 diabetes mellitus without complications; Z88.6 Allergy status to analgesic agent; Z88.8 Allergy status to other drugs, medicaments and biological substances; Z88.2 Allergy status to sulfonamides; Z88.1 Allergy status to other antibiotic agents; Z79.84 Long term (current) use of oral hypoglycemic drugs; Z79.899 Other long term (current) drug therapy; W06.XXXA Fall from bed, initial encounter
CPT/HCPCS: 70450; 72125; 96372; 99283; A9270; J1171